=== PATIENT | female | born 1945 | race Caucasian/White ===

== ENCOUNTER → 2016-03-11 | Outpatient (CLI) | payer BC ==
[~2016-03-11] MED LIST: ASPI81TA28 PO; ATOR-26 PO; CALC600T9 PO; DEXL30CA5 PO; INSDGI SC; LEVO50TA6 PO; MEGE40TA13 PO; NVLGI SQ; TPRSR100 PO
[2016-03-11 10:04] LABS: ESTIMATED AVERAGE GLUCOSE 134 mg/dl; HA1C FLAG Normal (Normal)
== END | disposition home or self-care (01) ==
LOC: C.LAB1850 08:18
PROVIDERS: ATTEND Nurse Practitioner Family
DX: E10.29 Type 1 diabetes mellitus with other diabetic kidney complication (principal)

== ENCOUNTER → 2016-03-23 | Outpatient (CLI) | payer BC | END | disposition home or self-care (01) | LOC: C.PAPS 11:27 | PROVIDERS: ATTEND Obstetrics & Gynecology | DX: C54.1 Malignant neoplasm of endometrium (principal) ==

== ENCOUNTER → 2016-08-03 | Outpatient (CLI) | payer BC | END | disposition home or self-care (01) | LOC: C.MAMM 09:14 | PROVIDERS: ATTEND Family Medicine | DX: M85.851 Other specified disorders of bone density and structure, right thigh (principal); E10.9 Type 1 diabetes mellitus without complications; I10 Essential (primary) hypertension; E66.3 Overweight ==

== ENCOUNTER → 2016-09-08 | Outpatient (CLI) | payer BC ==
[2016-09-08 09:52] LABS: ESTIMATED AVERAGE GLUCOSE 137 mg/dl; HA1C FLAG Normal (Normal)
== END | disposition home or self-care (01) ==
LOC: C.LAB1850 08:39
PROVIDERS: ATTEND Nurse Practitioner Family
DX: E10.29 Type 1 diabetes mellitus with other diabetic kidney complication (principal)

== ENCOUNTER → 2016-09-22 | Outpatient (CLI) | payer BC | END | disposition home or self-care (01) | LOC: C.PAPS 11:53 | PROVIDERS: ATTEND Obstetrics & Gynecology | DX: C55 Malignant neoplasm of uterus, part unspecified (principal) ==

== ENCOUNTER → 2016-11-27 | Outpatient (CLI) | payer BC ==
[2016-11-27 10:01] LABS: BASO % 1.7 %; COMPLETE YES; EOS % 3.6 %; HEMATOCRIT 38.7 % (37-47); IG% 0.3 %; LYMPH % 25.4 %; MEAN CELL VOLUME 91.5 fL (80-100); MEAN CORPUSCULAR HEMOGLOBIN 30.7 pg (25-34); MEAN CORPUSCULAR HGB CONC 33.6 g/dl (32-36); MEAN PLATELET VOLUME 9.9 fL (7.4-10.4); MONO % 11.3 %; NEUT % 57.7 %; PLATELET COUNT 232 K/uL (130-400); RED BLOOD COUNT 4.23 M/uL (4.2-5.4); WHITE BLOOD COUNT 5.91 K/uL (4.8-10.8)
--- NOTE | 2016-11-27 10:15 | DIAGNOSTIC IMAGING REPORT ---
CHEST 2 VIEWS ROUTINE CLINICAL HISTORY: Endometrial carcinoma. History of lung metastases. COMPARISON STUDY: Chest CT March 03, 2013 and chest radiograph October 10, 2014. FINDINGS: A dual lead left subclavian pacemaker, median sternotomy wires and clips from bypass grafting are present. There is no pneumothorax. There is mild right pleural thickening versus a pleural effusion. This is similar to prior exam. A 5.4 x 2.3 cm elliptical pleural opacity within the posterior right midlung is similar to prior exams. This was shown to be partially calcified on prior CT. There is no consolidation to suggest pneumonia. The appearance of the chest is similar to prior exam. Cardiomediastinal silhouette is stable. IMPRESSION: 1. No acute cardiopulmonary findings. 2. No change in a 5.4 x 2.3 cm elliptical posterior right pleural opacity since prior exam which was shown to be partially calcified on prior CT. Unchanged appearance of the chest. Electronically signed by: Juan Hanson M.D. 11/27/2016 10:13 AM Dictated Date/Time: 11/27/2016 10:07 AM
[2016-11-27 10:32] LABS: ALT/SGPT 35 U/L (12-78); AST/SGOT 26 U/L (15-37); BLOOD UREA NITROGEN 23 mg/dl (7-18); BUN/CREATININE RATIO 24.1 (10-20); CARBON DIOXIDE 22 mmol/L (21-32); CHLORIDE 110 mmol/L (98-107); CREATININE 0.97 mg/dl (0.60-1.20); GLUCOSE 99 mg/dl (70-99); POTASSIUM 4.1 mmol/L (3.5-5.1); SODIUM 140 mmol/L (136-145)
[2016-11-27 10:34] LABS: ALKALINE PHOSPHATASE 79 U/L (45-117)
== END | disposition home or self-care (01) ==
LOC: C.RAD 08:58
PROVIDERS: ATTEND Nurse Practitioner Family
DX: C54.1 Malignant neoplasm of endometrium (principal)

== ENCOUNTER → 2017-01-04 | Outpatient (CLI) | payer BC ==
--- NOTE | 2017-01-05 14:32 | MAMMOGRAPHY REPORT ---
BILATERAL DIGITAL SCREENING MAMMOGRAM TOMOSYNTHESIS WITH CAD: 01/04/2017 CLINICAL HISTORY: Routine screening. Patient has no complaints. TECHNIQUE: Breast tomosynthesis in addition to standard 2D mammography was performed. Current study was also evaluated with a Computer Aided Detection (CAD) system. The bilateral MLO views are subopti mal and do not include visualization of the pectoralis muscles due to difficulties with patient posit ioning due to frozen shoulders and left pacemaker. COMPARISON: Comparison is made to exams dated: 01/02/2016 mammogram, 12/31/2014 mammogram, 4 mammogram, 12/27/2012 mammogram, 12/23/2011 mammogram, and 12/17/2010 mammogram - [facility]. BREAST COMPOSITION: The tissue of both breasts is heterogeneously dense, which may obscure small mas ses. FINDINGS: No suspicious masses, calcifications, or areas of architectural distortion are noted in ei ther breast. There has been no significant interval change compared to prior exams. Bilateral benign -appearing calcifications are not significantly changed. A biopsy marker clip is again noted within the left 3:00 breast. IMPRESSION: ACR BI-RADS CATEGORY 2: BENIGN There is no mammographic evidence of malignancy. A 1 year screening mammogram is recommended. The pa tient will receive written notification of the results. Approximately 10% of breast cancers are not detected with mammography. A negative mammographic report should not delay biopsy if a clinically suggestive mass is present. Gauri Carter M.D. 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
== END | disposition home or self-care (01) ==
LOC: C.MAMM 09:37
PROVIDERS: ATTEND Obstetrics & Gynecology
DX: Z12.31 Encounter for screening mammogram for malignant neoplasm of breast (principal)

== ENCOUNTER → 2017-01-15 | Outpatient (CLI) | payer BC ==
[2017-01-15 09:33] LABS: HEMATOCRIT 38.3 % (37-47); MEAN CELL VOLUME 93.2 fL (80-100); MEAN CORPUSCULAR HEMOGLOBIN 31.1 pg (25-34); MEAN CORPUSCULAR HGB CONC 33.4 g/dl (32-36); PLATELET COUNT 255 K/uL (130-400); RED BLOOD COUNT 4.11 M/uL (4.2-5.4); WHITE BLOOD COUNT 5.99 K/uL (4.8-10.8)
[2017-01-15 09:49] LABS: URINE APPEARANCE CLEAR (CLEAR); URINE BILIRUBIN NEG (NEG); URINE COLOR YELLOW; URINE EPITHELIAL CELL AUTO >30 /lpf (0-5); URINE NITRITE NEG (NEG); URINE SPECIFIC GRAVITY 1.018 (1.000-1.030); UROBILINOGEN NEG (NEG)
[2017-01-15 09:52] LABS: MANUAL MICROSCOPIC REQUIRED? NO; REVIEW REQ? NO
[2017-01-15 09:56] LABS: BLOOD UREA NITROGEN 27 mg/dl (7-18); BUN/CREATININE RATIO 25.2 (10-20); CARBON DIOXIDE 22 mmol/L (21-32); CHLORIDE 105 mmol/L (98-107); CREATININE 1.06 mg/dl (0.60-1.20); GLUCOSE 172 mg/dl (70-99); PHOSPHORUS 3.2 mg/dl (2.5-4.9); POTASSIUM 4.4 mmol/L (3.5-5.1); SODIUM 134 mmol/L (136-145)
[2017-01-15 09:58] LABS: URINE PROTIEN/CREAT RATIO 0.1 (0-0.2); URINE TOTAL PROTEIN 11.7 mg/dl (0-11.9)
== END | disposition home or self-care (01) ==
LOC: C.LAB1850 07:56
PROVIDERS: ATTEND Internal Medicine Nephrology
DX: I12.9 Hypertensive chronic kidney disease with stage 1 through stage 4 chronic kidney disease, or unspecified chronic kidney disease (principal); E55.9 Vitamin D deficiency, unspecified; N18.3 Chronic kidney disease, stage 3 (moderate); D64.9 Anemia, unspecified

== ENCOUNTER → 2017-02-16 | Outpatient (CLI) | payer BC ==
[2017-02-16 10:24] LABS: HEMOGLOBIN A1C 6.4 % (4.5-5.6)
== END | disposition home or self-care (01) ==
LOC: C.LAB1850 08:52
PROVIDERS: ATTEND Nurse Practitioner Family
DX: E10.29 Type 1 diabetes mellitus with other diabetic kidney complication (principal)

== ENCOUNTER → 2017-03-25 | Outpatient (CLI) | payer BC | END | disposition home or self-care (01) | LOC: C.PAPS 11:41 | PROVIDERS: ATTEND Obstetrics & Gynecology | DX: C54.1 Malignant neoplasm of endometrium (principal) ==

== ENCOUNTER → 2017-05-19 | Outpatient (CLI) | payer BC ==
[2017-05-19 09:57] LABS: HEMOGLOBIN A1C 6.5 % (4.5-5.6)
== END | disposition home or self-care (01) ==
LOC: C.LAB1850 08:26
PROVIDERS: ATTEND Nurse Practitioner Family
DX: E10.29 Type 1 diabetes mellitus with other diabetic kidney complication (principal)

== ENCOUNTER 2019-12-30 08:35 | Inpatient (IN) ==
--- NOTE | 2019-12-30 09:35 | XRay Report ---
XR chest 1V portable HISTORY: Dyspnea COMPARISON: Chest 08/24/2019. FINDINGS: The heart remains enlarged. There are poststernotomy changes and a left-sided dual-chamber pacemaker. Interstitial and vascular thickening consistent with pulmonary edema. Small bilateral pleu ral effusions have progressed. Right midlung zone lobular density remains unchanged. There are patchy bibasilar densities. Slight progression of a right upper lobe peripheral density. IMPRESSION: 1. Interval progression of the mild interstitial pulmonary edema and small bilateral pleural effusion s. 2. Right midlung zone lobular density persists consistent with calcification. 3. Progressive right upper lobe peripheral density which could represent additional areas of scarring or pneumonia. 4. Stable cardiomegaly. ACT 112: Negative or not required by law. Electronically signed by: Juan Luis Kilgore M.D. 12/30/2019 9:34 AM
[2019-12-30 10:06] LABS: Basophils # (auto) 0.04 K/uL (0-0.2); Basophils % (auto) 0.5 %; Eosinophils # (auto) 0.08 K/uL (0-0.5); Hematocrit (blood only) 39.5 % (37-47); Hemoglobin 12.6 g/dL (12.0-16.0); Immature Granulocytes # (auto) 0.02 K/uL (0.00-0.02); Immature Granulocytes % (auto) 0.3 %; Lymphocytes # (auto) 1.48 K/uL (1.2-3.4); Lymphocytes % (auto) 18.6 %; Mean Corpuscular Hemoglobin 29.9 pg (25-34); Mean Corpuscular Hgb Conc 31.9 g/dL (32-36); Mean Corpuscular Volume 93.8 fL (80-100); Mean Platelet Volume 9.6 fL (7.4-10.4); Monocytes # (auto) 0.57 K/uL (0.11-0.59); Monocytes % (auto) 7.2 %; Neutrophils # (auto) 5.75 K/uL (1.4-6.5); Neutrophils % (auto) 72.4 %; Platelet Count 216 K/uL (130-400); RDW Coefficient of Variation 15.7 % (11.5-14.5); RDW Standard Deviation 54.3 fL (36.4-46.3); Red Blood Count 4.21 M/uL (4.2-5.4); White Blood Count 7.94 K/uL (4.8-10.8)
[2019-12-30 10:24] LABS: Albumin Level 3.5 gm/dl (3.4-5.0); BUN Creatinine Ratio 22.5 (10-20); Calcium 8.7 mg/dl (8.5-10.1); Creatinine Clr Calc Pharmacy 38.5 ml/min; Est GFR (African American) 56.7; Est GFR (Non-African American) 48.9; Potassium 4.7 mmol/L (3.5-5.1)
[2019-12-30] MEDS ORDERED: FUROSEMIDE 40 MG/4 ML VIAL IV STA (10:27)
--- NOTE | 2019-12-30 10:27 | Emergency Department Note ---
History of Present Illness General Chief complaint: Shortness of Breath/Dyspnea Stated complaint: sob Time Seen by Provider: 12/30/19 08:43 Source: patient Mode of arrival: ambulatory Limitations: no limitations History of Present Illness Provider complaint: Shortness of breath Maximum Pain Intensity: 0 This is a 74-year-old female who presents to the ED with a chief complaint of shortness of breath. She states that she has had shortness of breath for about 2 weeks but it got worse the last couple of days. It is worse with exertion. The patient has a history of COPD, diabetes and hypertension. She does use a rescue inhaler. She states that she does not use Symbicort because it does not help. The patient denies any fevers or recent illness. Denies nausea vomiting. No chest pains. Home Medications Home Medications Medication Instructions Recorded Confirmed Type atorvastatin 80 mg tablet 80 mg PO HS tab 09/29/18 12/30/19 History cholecalciferol (vitamin D3) 50 2,000 units PO HS cap 11/28/18 12/30/19 History mcg (2,000 unit) capsule metoprolol succinate 100 mg 100 mg PO HS tab 11/28/18 12/30/19 History tablet,extended release 24 hr OneTouch Ultra Blue Test Strip #300 ea NS 02/07/19 10/17/19 Rx megestrol 40 mg tablet 40 mg PO QAM tab 02/19/19 12/30/19 History glucagon HCl 1 mg/mL solution for See Rx Instructions IM .COMPLEX #1 02/22/19 12/30/19 Rx injection ea lancets #50 ea 02/22/19 10/17/19 History blood-glucose sensor #3 ea 06/28/19 11/02/19 History Novolog Flexpen U-100 Insulin 100 See Rx Instructions .ROUTE 08/21/19 12/30/19 Rx unit/mL (3 mL) subcutaneous .COMPLEX #30 ml NS losartan 50 mg PO QAM 08/22/19 12/30/19 History budesonide-formoterol HFA 80 2 inh INH BID PRN #10.2 g 10/17/19 12/30/19 Rx mcg-4.5 mcg/actuation aerosol inhaler calcium 600 mg-D3 800 unit-mag11 1 tab PO DAILY 11/02/19 12/30/19 History 50 zn-pgzs-ebafvn-loyd-s.borat tablet insulin syringe-needle U-100 0.5 #10 ea 11/02/19 11/02/19 History mL 31 gauge x 5/16" pen needle, diabetic 30 gauge x #1 11/02/19 11/02/19 History 1/3" albuterol sulfate 2 inh INH QID 12/30/19 12/30/19 History aspirin [Aspir-Low] 81 mg PO HS 12/30/19 12/30/19 History ezetimibe 10 mg PO HS 12/30/19 12/30/19 History fluticasone propionate [Allergy 1 spray INTNAS QAM 12/30/19 12/30/19 History Relief (fluticasone)] insulin glargine [Lantus U-100 7 unit SQ BID 12/30/19 12/30/19 History Insulin] levothyroxine 100 mcg PO DAILY@0600 12/30/19 12/30/19 History Allergies Allergy/AdvReac Type Severity Reaction Status Date / Time Percocet Allergy Mild UPSET Uncoded 12/30/19 09:48 STOMACH/VOMITTING Past Med/Surg History Medical History (Updated 12/30/19 @ 11:47 by Colin Thompson DO) Arthritis Chronic kidney disease, stage III (moderate) Cough REASON FOR INHALER History of colon cancer History of hypertension History of rectal polyps Hx of cancer of endometrium Hyperlipidemia Hypothyroidism Lung tumor HX RT LOWER LUNG (SURGERY/CHEMO/RADIATION) Metastasis to lung Hematogenous Pacemaker [employer]. IMPLANTED 2013 FOR BIFASCICULAR BLOCK WITH TRANSIENT COMPLETE HEART BLOCK. LAST CHECKED 06/2019 [facility]. T1DM (type 1 diabetes mellitus) DX 1955 Vitamin D deficiency Surgical History Family history of reaction to anesthesia DAUGHTER-GETS SICK H/O aortic valve replacement 2013 AT [facility] History of appendectomy History of bilateral tubal ligation History of bronchoscopy 2006 History of cardiac cath History of cataract surgery RT/LEFT History of colon resection History of colonoscopy History of esophagogastroduodenoscopy (EGD) History of lung surgery RT LOWER LOBE REMOVAL History of open reduction and internal fixation (ORIF) procedure LEFT HIP History of placement of chest tube with chemical pleurodesis (non-chemotherapeutic) History of tooth extraction History of total hysterectomy S/P CABG (coronary artery bypass graft) 2013 AT [facility] Family History Mother Hypertension Brother Family history of diabetes mellitus Family history of esophageal cancer Other Asthma Cancer Diabetes Social History Smoking Status: Former smoker Age Started Using Tobacco: 16; Age Quit Using Tobacco: 56; Second Hand Exposure: No; Hx Alcohol Use: No Hx Substance Use: No Preferred Language: Guatemalan Environmental Compliance Manager Required: No Beliefs That Will Affect Care: None Current Living Situation: Spouse Feels Safe at Home: Yes Assistive Devices: Glasses Review of Systems A total of 10 systems reviewed and were otherwise negative Physical Exam Vital Signs Vital Signs - 24 hr 12/30/19 08:40 12/30/19 09:51 12/30/19 10:02 Temperature 36.8 C Temperature Source Oral Pulse Rate 107 H Pulse Rate [Apical] 97 H Pulse Rate from SpO2 Sensor Respiratory Rate 24 20 Respiratory Effort / Characteristics SOB on Exertion Blood Pressure 172/89 H Blood Pressure [Right Arm] 141/71 H Blood Pressure Mean 116 Blood Pressure Mean [Right Arm] 94 Blood Pressure Position Sitting Pulse Oximetry 96 95 96 Oxygen Delivery Method Room Air Room Air Room Air Sepsis Recent Fever Within 48 Hours No Sepsis New/Unexplained Change in Mental Status No Sepsis Action Taken by Nursing Physician Notified 12/30/19 10:30 12/30/19 11:00 12/30/19 11:35 Temperature Temperature Source Pulse Rate 93 H 97 H Pulse Rate [Apical] 91 H Pulse Rate from SpO2 Sensor 93 H Respiratory Rate 20 28 H 33 H Respiratory Effort / Characteristics Blood Pressure 132/67 163/76 H Blood Pressure [Right Arm] 138/63 Blood Pressure Mean 108 116 Blood Pressure Mean [Right Arm] 88 Blood Pressure Position Pulse Oximetry 95 95 Oxygen Delivery Method Room Air Sepsis Recent Fever Within 48 Hours Sepsis New/Unexplained Change in Mental Status Sepsis Action Taken by Nursing CONSTITUTIONAL/VITAL SIGNS: Reviewed / noted above. GENERAL: Non-toxic in appearance. INTEGUMENTARY: Warm, dry, and Dustin. HEAD: Normocephalic. EYES: without scleral icterus or trauma. ENT/OROPHARYNX: clear and moist. LYMPHADENOPATHY/NECK: Is supple without lymphadenopathy or meningismus. RESPIRATORY: Lungs reveal some basilar crackles bilaterally. She is not in any acute distress. CARDIOVASCULAR: Regular rate and rhythm. GI/ABDOMEN: Soft and nontender. No organomegaly or pulsatile mass. No rebound or guarding. Normal bowel sounds. EXTREMITIES: Warm and well perfused. BACK: No CVA tenderness. NEUROLOGICAL: Intact without focal deficits. PSYCHIATRIC: normal affect. MUSCULOSKELETAL: Normally developed with good muscle tone. TRIAGE NURSING DOCUMENTATION REVIEWED. Course Administered Medications Discontinued Medications Furosemide (Furosemide 40 Mg/4 Ml Vial) 40 mg IV NOW STA Stop: 12/30/19 10:28 Last Admin: 12/30/19 11:34 Dose: 40 mg Documented by: [id number] Ioversol (Optiray 320 125ml) 120 ml IV ONCE ONE Stop: 12/30/19 11:17 Last Admin: 12/30/19 11:16 Dose: 120 ml Documented by: [id number] Medical Decision Making Differential Diagnosis The differential was considered includes acute myocardial infarction, acute coronary syndrome, myocarditis, pericarditis, pericardial effusions /tamponad, esophageal perforation, pulmonary embolism, pneumonia, pneumothorax, cardiomyopathy, congestive heart, anemia , COPD/asthma exacerbation. Medical Records Attestation: I reviewed the patient's medical records. Home Medications Current Medication List: was personally reviewed by me Laboratory Data Attestation: I reviewed the patient's lab results. Result diagrams: 12/30/19 09:51 12/30/19 09:51 Lab Results 12/30/19 12/30/19 12/30/19 Range/Units 09:51 09:51 09:51 WBC 7.94 (4.8-10.8) K/uL RBC 4.21 (4.2-5.4) M/uL Hgb 12.6 (12.0-16.0) g/dL Hct 39.5 (37-47) % MCV 93.8 (80-100) fL MCH 29.9 (25-34) pg MCHC 31.9 L (32-36) g/dL RDW Std Deviation 54.3 H (36.4-46.3) fL RDW Coeff of Daniel 15.7 H (11.5-14.5) % Plt Count 216 (130-400) K/uL MPV 9.6 (7.4-10.4) fL Immature Gran % (Auto) 0.3 % Neut % (Auto) 72.4 % Lymph % (Auto) 18.6 % Brewster % (Auto) 7.2 % Eos % (Auto) 1.0 % Baso % (Auto) 0.5 % Neut # (Auto) 5.75 (1.4-6.5) K/uL Lymph # (Auto) 1.48 (1.2-3.4) K/uL Brewster # (Auto) 0.57 (0.11-0.59) K/uL Eos # (Auto) 0.08 (0-0.5) K/uL Baso # (Auto) 0.04 (0-0.2) K/uL Immature Gran # (Auto) 0.02 (0.00-0.02) K/uL PT 13.6 H (9.0-12.0) Seconds INR 1.3 H (0.9-1.1) APTT 30.2 (21.0-31.0) Seconds PTT Ratio 1.1 D-Dimer 950 H* (0-500) ug/L FEU Sodium 139 (136-145) mmol/L Potassium 4.7 (3.5-5.1) mmol/L Chloride 108 H (98-107) mmol/L Carbon Dioxide 28 (21-32) mmol/L Anion Gap 3.0 (3-11) BUN 25 H (7-18) mg/dl Creatinine 1.11 (0.6-1.2) mg/dl Est Cr Clr Drug Dosing 38.5 ml/min Est GFR ( Amer) 56.7 Est GFR (Non-Af Amer) 48.9 BUN/Creatinine Ratio 22.5 H (10-20) Glucose 166 H (70-99) mg/dl Calcium 8.7 (8.5-10.1) mg/dl Total Bilirubin 0.9 (0.2-1) mg/dl AST 49 H (15-37) U/L ALT 76 (12-78) U/L Alkaline Phosphatase 129 H (45-117) U/L Troponin I 0.050 H* (0-0.045) ng/ml NT-Pro-B Natriuret Pep 8760 H (0-900) pg/ml Total Protein 7.5 (6.4-8.2) gm/dl Albumin 3.5 (3.4-5.0) gm/dl Globulin 4.0 (2.5-4.0) gm/dl Albumin/Globulin Ratio 0.9 (0.9-2) Imaging Data Radiologist's Impression: XR chest 1V portable HISTORY: Dyspnea COMPARISON: Chest 08/24/2019. FINDINGS: The heart remains enlarged. There are poststernotomy changes and a left-sided dual-chamber pacemaker. Interstitial and vascular thickening consistent with pulmonary edema. Small bilateral pleural effusions have progressed. Right midlung zone lobular density remains unchanged. There are patchy bibasilar densities. Slight progression of a right upper lobe peripheral density. IMPRESSION: 1. Interval progression of the mild interstitial pulmonary edema and small bilateral pleural effusions. 2. Right midlung zone lobular density persists consistent with calcification. 3. Progressive right upper lobe peripheral density which could represent additional areas of scarring or pneumonia. 4. Stable cardiomegaly. ECG Data Attestation: I personally reviewed and interpreted this ECG as follows: Indication: + other (Paced ventricular rhythm ) Rate (beats per minute): [address] segments: no ST elevation ECG Findings: no PVCs MDM Narrative The patient presents with shortness of breath that is progressively worsened over the past couple of weeks and worse in the past couple of days. It is worse with exertion. Her vital signs reveal some hypertension as well as a pulse ox of 96% on room air. She is in no distress. Lung sounds reveal some crackles in the bases. Chest x-ray reveals some mild pulmonary edema. Twelve-lead EKG sh owed a paced ventricular rhythm at a rate of 104. The patient CBC was normal. D-dimer is elevated. Chemistry panel was unremarkable. D-dimer was elevated. Troponin is slightly elevated. CT scan of the chest reveals a right lower lobe pulmonary embolus as well as a soft tissue density near the bronchus that appears to be progressive. The patient was told the results of the test. She was started on IV heparin. She was given IV Lasix. She will be seen by the hospitalist for further evaluation and care. Impression & Plan CHF (congestive heart failure), Pulmonary emboli, Elevated troponin Discharge Plan Visit Data Chief Complaint: Shortness of Breath/Dyspnea Stated Complaint: sob ED Provider: Colin Thompson Discharge Problem: CHF (congestive heart failure), Pulmonary emboli, Elevated troponin Patient Disposition: Being Evaluated by Hospitalist Forms Stand Alone Forms: [employer] Prescriptions Prescriptions: No Action (DME) OneTouch Ultra Blue Test Strip strip See Dose Instructions .ROUTE .MEDSUPPLY Qty: 300 RF: 3 insulin aspart U-100 [Novolog Flexpen U-100 Insulin] 100 unit/mL (3 mL) insulin pen See Rx Instructions .ROUTE .COMPLEX Qty: 30 RF: 3 Caltrate 600-D Plus Minerals 600 mg calcium- 800 unit-50 mg tablet 1 tab PO DAILY RF: 0 budesonide-formoterol [Symbicort] 80-4.5 mcg/actuation HFA aerosol inhaler 2 inh INH BID PRN (Reason: Shortness Of Breath Or Wheezing) Qty: 10.2 RF: 3 (DME) [employer] G6 Sensor Device See Rx Instructions .ROUTE .MEDSUPPLY Qty: 3 RF: 0 metoprolol succinate 100 mg tablet extended release 24 hr 100 mg PO HS RF: 0 cholecalciferol (vitamin D3) 2,000 unit capsule 2,000 units PO HS RF: 0 atorvastatin 80 mg tablet 80 mg PO HS RF: 0 megestrol 40 mg tablet 40 mg PO QAM RF: 0 (DME) lancets [OneTouch UltraSoft Lancets] Misc See Dose Instructions .ROUTE .MEDSUPPLY Qty: 50 RF: 0 (DME) insulin syringe-needle U-100 [BD Insulin Syringe Ultra-Fine] 0.5 mL 31 gauge x 5/16" syringe See Rx Instructions .ROUTE .MEDSUPPLY Qty: 10 RF: 0 (DME) pen needle, diabetic 30 gauge x 1/3" needle See Rx Instructions .ROUTE .MEDSUPPLY Qty: 1 RF: 0 glucagon HCl 1 mg recon soln See Rx Instructions IM .COMPLEX Qty: 1 RF: 1 losartan 50 mg Tablet 50 mg PO QAM RF: 0 aspirin [Aspir-Low] 81 mg Tablet,Delayed Release (Dr/Ec) 81 mg PO HS RF: 0 Lantus U-100 Insulin 100 unit/mL solution 7 unit SQ BID RF: 0 albuterol sulfate 90 mcg/actuation HFA aerosol inhaler 2 inh INH QID RF: 0 fluticasone propionate [Allergy Relief (fluticasone)] 50 mcg/actuation spray,suspension 1 spray INTNAS QAM RF: 0 ezetimibe 10 mg tablet 10 mg PO HS RF: 0 levothyroxine 100 mcg capsule 100 mcg PO DAILY@0600 RF: 0 Referrals Referrals: Samuel Abreu [Primary Care Provider] - Discharge Problem: CHF (congestive heart failure) Qualifiers: Heart failure type: unspecified Heart failure chronicity: acute Qualified Code(s): I50.9 - Heart failure, unspecified Pulmonary emboli Qualifiers: Pulmonary embolism type: unspecified Chronicity: acute Acute cor pulmonale presence: without acute cor pulmonale Qualified Code(s): I26.99 - Other pulmonary embolism without acute cor pulmonale
[2019-12-30 10:29] LABS: INR 1.3 (0.9-1.1); Partial Thromboplastin Ratio 1.1; Partial Thromboplastin Time 30.2 Seconds (21.0-31.0); Prothrombin Time 13.6 Seconds (9.0-12.0)
[2019-12-30 10:30] LABS: D Dimer 950 ug/L FEU (0-500)
[2019-12-30 11:12] LABS: Albumin Globulin Ratio 0.9 (0.9-2); Bilirubin,Total 0.9 mg/dl (0.2-1); Total Protein 7.5 gm/dl (6.4-8.2)
[2019-12-30] MEDS ORDERED: OPTIRAY 320 125ml IV ONE (11:16)
--- NOTE | 2019-12-30 11:32 | CT Scan Report ---
CHEST CTA for PULMONARY ARTERIES CT DOSE: 614.85 mGy.cm HISTORY: Shortness of breath. TECHNIQUE: Multiaxial CT images of the chest were performed following the intravenous administration of contrast to evaluate the pulmonary arteries. Maximal intensity projection images were also obtaine d. A dose lowering technique was utilized adhering to the principles of ALARA. COMPARISON STUDY: Chest CT 10/16/2019. FINDINGS: The normal caliber thoracic aorta with no evidence for dissection. There are poststernotomy changes. Small bilateral pleural effusions have progressed in the interval. No pericardial effusion. The heart remains borderline enlarged. Retrograde opacification of contrast into the hepatic veins. A left-sided pacemaker and poststernotomy changes are again noted. There is a filling defect seen wit hin the right lower lobar pulmonary artery best seen on image 166 consistent with a pulmonary embolus . There is faint opacification of the distal right lower lobe bronchi. Multinodular thyroid gland is again noted. There is persistent abnormal soft tissue density surrounding the right bronchus intermed ius resulting in moderate to severe narrowing. This has slightly progressed in the interval. Small am ount of calcification at this location. Calcified lobular density within the right lower lobe posteri bridgette and along the right major fissure remains unchanged. This favors post therapeutic changes. Calci fied granuloma seen within the spleen. No pneumothorax. The lungs demonstrate mild interlobular septa l thickening and perihilar groundglass densities suggestive of pulmonary edema. Consolidation within the lung bases may represent atelectasis from the small bilateral pleural effusions. Mild esophageal wall thickening, unchanged. IMPRESSION: 1. A filling defect seen within the right lower lobar pulmonary artery consistent with a pulmonary em bolus. 2. Mild pulmonary edema and small bilateral pleural effusions. This has progressed. 3. Progressive soft tissue density surrounding the bronchus intermedius resulting in moderate to scott re narrowing. This is concerning for neoplasm. ACT 112: Negative or not required by law. Electronically signed by: Juan Luis Kilgore M.D. 12/30/2019 11:31 AM
[2019-12-30] MEDS ORDERED: HEPARIN SODIUM/DEXTROSE 25,000 UNITS/500 ML BAG IV SCH (11:45)
[2019-12-30] MEDS ORDERED: Heparin BOLUS **ED Use Only IV STA (12:10)
[2019-12-30 12:49] LABS: Appearance Urine Clear (Clear); Bacteria Urine Automated Negative (Negative); Bilirubin Urine Negative (Negative); Blood Urine Negative (Negative); Color Urine Yellow; Glucose Urine UA Negative (Negative); Ketones Urine Negative (Negative); Leukocyte Esterase Urine Negative (Negative); Nitrite Urine Negative (Negative); RBC Urine Automated 0-4 /hpf (0-4); Specific Gravity Urine 1.027 (1.000-1.030); Urobilinogen Urine Negative (Negative); pH Urine 7.5 (4.5-7.5)
--- NOTE | 2019-12-30 12:49 | History & Physical Report ---
Date of Service December 30, 2019 Assessment & Plan (1) Pulmonary emboli: IV heparin bolus and drip (2) Lung mass: Discussed with Dr Liu - no need to see this admission, patient will be discussed with her primary general cargo clerk Dr Stephens for possible outpatient PET/CT Patient under Dr Stephens with ongoing workup and prior biopsy showing benign chronic inflammatory tissue. (3) Elevated troponin: Suspect secondary to PE above but given CHF exacerbation in addition will trend and get TTE. (4) Acute on chronic congestive heart failure: 40mg IV lasix given in ER. Monitor BMP in AM for repeated doses. Prior echo in July LVEF 40-45% but given sudden worsening will repeat this. Low sodium, fluid restrict diet 1200ml I&Os, daily weights (5) CAD (coronary artery disease): Continue aspirin 81 mg p.o. at bedtime, metoprolol succinate 100 mg p.o. at bedtime, losartan 50 mg p.o. every morning, atorvastatin 80 mg p.o. at bedtime (6) Ischemic cardiomyopathy: Repeat TTE as above Metoprolol succinate and losartan as above (7) Asthma-COPD overlap syndrome: No acute exacerbation. Continue her routine maintenance inhalers. Albuterol PRN (8) T1DM (type 1 diabetes mellitus): HbA1C 6.1 in October. Will consult pharmacy for glycemic control with basal bolus insulin. (9) Hypothyroidism: TSH 1.78 in June Continue levothyroxine 100mcg PO daily Admission and Anticipated Discharge Date Admission Date: 12/30/2019 History of Present Illness Chief Complaint: Shortness of breath Primary Care Provider: Samuel Abreu Janine Graham is a 74-year-old female with asthma/COPD overlap and lung mass who presents to the ER with acute shortness of breath that sudden started this morning. She denies any acute chest pain, cough, fever chills. Yesterday she was at her baseline self. No wheezing or improvement with her inhalers therefore decided to come to the ER for further workup. No loss of taste, smell, abdominal pain, diarrhea or known COVID-19 exposure. She is under pulmonology for more chronic shortness of breath on exertion and chronic cough. She notes a history of histoplasmosis. Former smoker, with in 2005. Prior history of partial right lower lobe resection in 2005 for stage IV endometrial cancer s/p chemoradiation. She underwent EBUS recently in August for subcarinal mass (first seen on CT in Jun, 2019). Pathology for this showed chronic active inflammation and reactive epithelial changes but no malignant cells. Discussed at multi-disciplinary rounds. In the ER CT for PE was subsequently positive with a filling defect seen in the right lower lobe pulmonary artery. She also has mild pulmonary edema and small bilateral pleural effusions which is progressed from her prior CT in September. BNP elevated at 8760 PG/mL. She was treated with a heparin drip in the ER for her PE. Lasix 40 mg IV given in ER for pulmonary edema. She was referred to medicine for admission for pulmonary embolism and elevated troponin. Allergies Allergy/AdvReac Type Severity Reaction Status Date / Time acetaminophen [From Percocet] AdvReac Gastrointestinal Verified 12/30/19 14:40 Upset oxycodone [From Percocet] AdvReac Gastrointestinal Verified 12/30/19 14:40 Upset Home Medications Home Medications Medication Instructions Recorded Confirmed Type atorvastatin 80 mg tablet 80 mg PO HS tab 09/29/18 12/30/19 History cholecalciferol (vitamin D3) 50 2,000 units PO HS cap 11/28/18 12/30/19 History mcg (2,000 unit) capsule metoprolol succinate 100 mg 100 mg PO HS tab 11/28/18 12/30/19 History tablet,extended release 24 hr OneTouch Ultra Blue Test Strip #300 ea NS 02/07/19 10/17/19 Rx megestrol 40 mg tablet 40 mg PO QAM tab 02/19/19 12/30/19 History glucagon HCl 1 mg/mL solution for See Rx Instructions IM .COMPLEX #1 02/22/19 12/30/19 Rx injection ea lancets #50 ea 02/22/19 10/17/19 History blood-glucose sensor #3 ea 06/28/19 11/02/19 History Novolog Flexpen U-100 Insulin 100 See Rx Instructions .ROUTE 08/21/19 12/30/19 Rx unit/mL (3 mL) subcutaneous .COMPLEX #30 ml NS losartan 50 mg PO QAM 08/22/19 12/30/19 History budesonide-formoterol HFA 80 2 inh INH BID PRN #10.2 g 10/17/19 12/30/19 Rx mcg-4.5 mcg/actuation aerosol inhaler calcium 600 mg-D3 800 unit-mag11 1 tab PO DAILY 11/02/19 12/30/19 History 50 kl-bzhe-dvpktq-loyd-s.borat tablet insulin syringe-needle U-100 0.5 #10 ea 11/02/19 11/02/19 History mL 31 gauge x 5/16" pen needle, diabetic 30 gauge x #1 11/02/19 11/02/19 History 1/3" albuterol sulfate 2 inh INH QID 12/30/19 12/30/19 History aspirin [Aspir-Low] 81 mg PO HS 12/30/19 12/30/19 History ezetimibe 10 mg PO HS 12/30/19 12/30/19 History fluticasone propionate [Allergy 1 spray INTNAS QAM 12/30/19 12/30/19 History Relief (fluticasone)] insulin glargine [Lantus U-100 7 unit SQ BID 12/30/19 12/30/19 History Insulin] levothyroxine 100 mcg PO DAILY@0600 12/30/19 12/30/19 History Past Med/Surg History Medical History (Updated 12/31/19 @ 10:11 by Brady Morales MD) Arthritis Chronic kidney disease, stage III (moderate) Cough REASON FOR INHALER History of colon cancer History of hypertension History of rectal polyps Hx of cancer of endometrium Hyperlipidemia Hypothyroidism Lung tumor HX RT LOWER LUNG (SURGERY/CHEMO/RADIATION) Metastasis to lung Hematogenous Pacemaker [employer]. IMPLANTED 2013 FOR BIFASCICULAR BLOCK WITH TRANSIENT COMPLETE HEART BLOCK. LAST CHECKED 06/2019 [facility]. T1DM (type 1 diabetes mellitus) DX 195 Vitamin D deficiency Surgical History Family history of reaction to anesthesia DAUGHTER-GETS SICK H/O aortic valve replacement 2013 AT [facility] History of appendectomy History of bilateral tubal ligation History of bronchoscopy 2006 History of cardiac cath History of cataract surgery RT/LEFT History of colon resection History of colonoscopy History of esophagogastroduodenoscopy (EGD) History of lung surgery RT LOWER LOBE REMOVAL History of open reduction and internal fixation (ORIF) procedure LEFT HIP History of placement of chest tube with chemical pleurodesis (non-chemotherapeutic) History of tooth extraction History of total hysterectomy S/P CABG (coronary artery bypass graft) 2013 AT [facility] Family History Mother Hypertension Brother Family history of diabetes mellitus Family history of esophageal cancer Other Asthma Cancer Diabetes Social History Smoking Status: Former smoker Age Started Using Tobacco: 16; Age Quit Using Tobacco: 56; Smoking End Date: 18 years ago; Second Hand Exposure: No; Hx Alcohol Use: No Hx Substance Use: No Preferred Language: Korean Communication Ability: Effective 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 Required: No Beliefs That Will Affect Care: None Current Living Situation: Spouse Other Information That Helps Us Care for You: No Feels Safe at Home: Yes Safety Concerns: Feels Safe At This Time Assistive Devices: None Review of Systems Review of Systems: All systems reviewed & are unremarkable except as noted in HPI & below Physical Exam Constitutional: WD/WN, vitals as above Eyes: + anicteric sclerae; normal pupil size ENMT: external ear and nose normal, oropharynx normal Neck: trachea midline, no thyromegaly Respiratory: normal respiratory effort; no respiratory distress, no labored breathing, no retractions, does not use accessory muscles, no cough and + not able to speak in complete sentence Auscultation: + wheezes (inspiratory on right side); no diminished lung sounds, no crackles, no rales and no rhonchi Cardiovascular: Rate/Rhythm: regular rate and regular rhythm Heart Sounds: no murmur Extremities: normal capillary refill; no calf tenderness and no pedal edema Gastrointestinal (Abdomen): normal bowel sounds, soft, nontender, no hepatosplenomegaly Musculoskeletal: no cyanosis or clubbing, extremities motor strength 5/5 Skin: no rashes, warm and dry Neurologic: moves all extremities and awake; not confused Psychiatric: A+Ox3, euthymic affect Results & Data Results & Data ([facility]) Vital Signs (Past 12 Hours) Vital Signs Temp Pulse Pulse Resp BP BP Pulse Ox 12/30/19 12:21 101 H 30 H 167/84 H 96 12/30/19 12:11 36 H 90 12/30/19 12:04 113 H 35 H 90 12/30/19 11:35 97 H 33 H 163/76 H 12/30/19 11:00 93 H 28 H 132/67 95 12/30/19 10:30 91 H 20 138/63 95 12/30/19 10:02 97 H 20 141/71 H 96 12/30/19 09:51 95 12/30/19 08:40 36.8 C 107 H 24 172/89 H 96 Diagnostic Findings XR chest 1V portable IMPRESSION: 1. Interval progression of the mild interstitial pulmonary edema and small bilateral pleural effusions. 2. Right midlung zone lobular density persists consistent with calcification. 3. Progressive right upper lobe peripheral density which could represent additional areas of scarring or pneumonia. 4. Stable cardiomegaly. CHEST CTA for PULMONARY ARTERIES IMPRESSION: 1. A filling defect seen within the right lower lobar pulmonary artery consistent with a pulmonary embolus. 2. Mild pulmonary edema and small bilateral pleural effusions. This has progressed. 3. Progressive soft tissue density surrounding the bronchus intermedius resulting in moderate to severe narrowing. This is concerning for neoplasm. ECG Indication: SOB/dyspnea Rate (beats per minute): 104 Findings: + paced rhythm (atrial-sensed ventricular-paced) Comparison ECG Date: from (August 24, 2019) Change: no significant change Code Status & VTE Plan Code Status All treatment outside of a cardiac arrest VTE Prophylaxis Plan VTE Prophylaxis will be ordered: Yes PG Care Time/CCT Total # of Minutes Spent Total Time Spent with Patient: Total time spent is greater than 50% in coordination of care (as documented) at patient's floor/unit and/or counseling patient: Coding Level of Care Code 24125 Initial Inpt Care Lvl 3 Diagnoses Pulmonary emboli I26.99 Acute cor pulmonale presence: without acute cor pulmonale Chronicity: acute Pulmonary embolism type: unspecified Lung mass R91.8 Elevated troponin R77.8 Acute on chronic congestive heart failure I50.9 CAD (coronary artery disease) I25.10 Ischemic cardiomyopathy I25.5 Asthma-COPD overlap syndrome J44.9 T1DM (type 1 diabetes mellitus) E10.9 Hypothyroidism E03.9 (1) Pulmonary emboli Acute cor pulmonale presence: without acute cor pulmonale Chronicity: acute Pulmonary embolism type: unspecified Qualified Code(s): I26.99 - Other pulmonary embolism without acute cor pulmonale
[2019-12-30] MEDS ORDERED: INSULIN ASPART 100 UNITS/ML 3 ML PEN SC STA (12:55)
[2019-12-30 13:06] LABS: Protein Urine 1+ (Negative); Sulfosalicylic Acid Urine Positive (Negative)
[2019-12-30] MEDS ORDERED: ACETAMINOPHEN 325 MG TAB PO PRN (14:33)
[2019-12-30] MEDS ORDERED: ALBUTEROL HFA 8 GM INHALER INH PRN (14:33)
[2019-12-30] MEDS ORDERED: PHARMACY GLYCEMIC MGMT CONSULT PRN (14:54)
[2019-12-30] MEDS ORDERED: GLUCOSE 40% GEL 15 GM TUBE PO PRN (15:00)
[2019-12-30] MEDS ORDERED: GLUCOSE 10 TABS/TUBE PO PRN (15:00)
[2019-12-30] MEDS ORDERED: DEXTROSE 50% 50 ML SYRINGE IV PRN (15:00)
[2019-12-30] MEDS ORDERED: CARBOHYDRATES FOR HYPOGLYCEMIA PO PRN (15:00)
[2019-12-30] MEDS ORDERED: GLUCAGON FOR INJ 1 MG VIAL SQ PRN (15:00)
[2019-12-30] MEDS: INSULIN ASPART 100 UNITS/ML 3 ML PEN SC SCH ×2 (17:02→20:50)
[2019-12-30 20:31] LABS: Partial Thromboplastin Ratio > 5.0
[2019-12-30] MEDS: ATORVASTATIN 40 MG TAB PO SCH (20:36)
[2019-12-30] MEDS: ASPIRIN 81 MG ECTAB PO SCH (20:36)
[2019-12-30] MEDS: METOPROLOL SUCC 50MG EXT REL TAB PO SCH (20:37)
[2019-12-30 20:38] LABS: Partial Thromboplastin Time > 139.0 Seconds (21.0-31.0)
[2019-12-30] MEDS: EZETIMIBE 10 MG TABLET PO SCH (20:42)
[2019-12-30] MEDS: CHOLECALCIFEROL 1,000 UNITS 25 MCG TAB PO SCH (20:43)
[2019-12-30] MEDS: INSULIN GLARGINE SOLOSTAR 100 UNITS/ML 3 ML PEN SC SCH (20:48)
[2019-12-30] MEDS ORDERED: FAMOTIDINE 20MG IV PUSH 20 MG/5 ML SYR IV STA (21:24)
[2019-12-30] MEDS ORDERED: ALUMINUM/MAGNESIUM SUSP 30 ML UDC PO PRN (21:25)
[2019-12-30 23:04] LABS: Partial Thromboplastin Ratio 1.5; Partial Thromboplastin Time 40.9 Seconds (21.0-31.0)
[2019-12-31 05:39] LABS: Basophils # (auto) 0.04 K/uL (0-0.2); Basophils % (auto) 0.7 %; Eosinophils # (auto) 0.11 K/uL (0-0.5); Hematocrit (blood only) 34.2 % (37-47); Hemoglobin 11.1 g/dL (12.0-16.0); Immature Granulocytes # (auto) 0.02 K/uL (0.00-0.02); Immature Granulocytes % (auto) 0.4 %; Lymphocytes # (auto) 1.55 K/uL (1.2-3.4); Lymphocytes % (auto) 27.9 %; Mean Corpuscular Hemoglobin 29.9 pg (25-34); Mean Corpuscular Hgb Conc 32.5 g/dL (32-36); Mean Corpuscular Volume 92.2 fL (80-100); Mean Platelet Volume 9.1 fL (7.4-10.4); Monocytes # (auto) 0.66 K/uL (0.11-0.59); Monocytes % (auto) 11.9 %; Neutrophils # (auto) 3.18 K/uL (1.4-6.5); Neutrophils % (auto) 57.1 %; Platelet Count 211 K/uL (130-400); RDW Coefficient of Variation 15.8 % (11.5-14.5); RDW Standard Deviation 53.4 fL (36.4-46.3); Red Blood Count 3.71 M/uL (4.2-5.4); White Blood Count 5.56 K/uL (4.8-10.8)
[2019-12-31 05:51] LABS: Partial Thromboplastin Ratio 2.4
[2019-12-31 05:57] LABS: BUN Creatinine Ratio 26.2 (10-20); Calcium 8.5 mg/dl (8.5-10.1); Creatinine Clr Calc Pharmacy 37.2 ml/min; Est GFR (African American) 54.3; Est GFR (Non-African American) 46.8
[2019-12-31 05:58] LABS: Partial Thromboplastin Time 66.1 Seconds (21.0-31.0)
[2019-12-31 06:02] LABS: Troponin I 0.056 ng/ml (0-0.045)
[2019-12-31] MEDS: LEVOTHYROXINE SODIUM 100 MCG TABLET PO SCH (06:05)
--- NOTE | 2019-12-31 06:44 | Electrocardiogram Report ---
Test Reason : Blood Pressure : / mmHG Vent. Rate : 104 BPM Atrial Rate : 104 BPM P-R Int : 182 ms QRS Dur : 174 ms QT Int : 410 ms P-R-T Axes : 039 -69 098 degrees QTc Int : 539 ms Atrial-sensed ventricular-paced rhythm Abnormal ECG When compared with ECG of 24-AUG-2019 06:46, Vent. rate has increased BY 12 BPM Confirmed by Michel Barnes ([id number]) on 12/31/2019 6:44:29 AM Referred By: REFERRED SELF Confirmed By:Michel Barnes
[2019-12-31] MEDS: INSULIN ASPART 100 UNITS/ML 3 ML PEN SC SCH ×4 (09:03→21:13)
[2019-12-31] MEDS: INSULIN GLARGINE SOLOSTAR 100 UNITS/ML 3 ML PEN SC SCH ×2 (09:05→21:12)
--- NOTE | 2019-12-31 09:48 | Hospitalist Progress Note ---
Date of Service December 31, 2019 Assessment & Plan (1) Pulmonary emboli: Janine Graham is a 74 yo male with h/o metastatic lung cancer (s/p resection, chemo, XRT in 2006), T2DM, h/o complete heart block (PPM in 2013) who was admitted on 12/30/2019 for a RLL PE and acute CHF. - Acute worsening of ARREDONDO, elevated d-dimer 950, RLL PE on CTA Chest 12/29 - started on Heparin IV bolus plus gtt on 12/29 - feels improved as of 12/30, no SOB - TTE 12/30 pending - transition to Eliqius 10 mg PO BID x7 days today, followed by 5mg PO BID for thereafter - likely will need indefinite length of therapy given persistent risk factor (malignancy) - f/u with Dr. Stephens (customer pricing manager) as outpatient for possible serial TTE and further eval/management (2) Acute on chronic congestive heart failure: - BNP 8760, interval progression of chronic interstitial pulmonary edema and small bilateral pulmonary effusions per CXR/CTA-Chest on 12/29 - s/p Lasix 40mg IV x1 in ED. - improved SOB this AM and no crackles on exam, net -1.3 L this admission - Cr stable/WNL at 1.15 - TTE pending - gave Lasix 40mg PO x1 today, will re-evaluate volume status tomorrow for further diuresis - continue home Toprol XL 100mg PO QHS and Losartan 50mg PO QAM - Low-sodium/fluid-restricted diet - strict I&Os, daily weights (3) Lung mass: - per Pulm, no need to see this admission; patient will be discussed with her primary customer pricing manager Dr. Stephens for possible outpatient PET/CT - Note: Patient under Dr Stephens with ongoing workup and prior biopsy in 08/2019 showing benign chronic inflammatory tissue. (4) Elevated troponin: - No chest pain, EKG w/o ST/T-wave changes, Troponin .062 --> .056 - Suspect demand ischemia 2/2 to PE and CHF exacerbation (5) Asthma-COPD overlap syndrome: - no acute exacerbation, no recent increased use of home inhalers or increased cough/wheezing - Albuterol PRN (6) T1DM (type 1 diabetes mellitus): - HbA1C 6.1 in 10/2019 - continue SSI/basal dosing per Pharmacy (7) HTN (hypertension): - continue home Toprol and Lisinopril as mentioned above (8) Hypothyroidism: - TSH 1.78 in 06/2019 - Continue home levothyroxine 100mcg PO daily FEN/GI: DM1, Heart Healthy DVT Prophylaxis: Eliquis 10mg PO BID Code Status: Conditional (all treatments outside of cardiac arrest) Disposition: med/surg with tele, tentative discharge tomorrow if medically stable Admission and Anticipated Discharge Date Admission Date: December 30, 2019 Supervising Physician Co-Signing Physician Notes I personally examined the patient and verified all joel points of history and exam, discussed case, and agree with decision making with Dr Carter. feeling better breathing better extensive discussion on PE and CHF. echo pending at the time we have discussions vitals noted nad heent nc at mmm breathing unlabored no accessory muscles good effort skin no rashes no pallor or icterus neuro no focal deficits PE - eliquis. stable. acute on chronic systolic chf - educated on Na. she was not aware and will start to watch - goal <2g. improved clinically - ok to hold diuretic for now. late finding on echo showing newly reduced EF - will ask cardiology for input otherwise as above Subjective NAEO. Patient confirmed some of previous history per H&P/ED notes, reporting chronic ARREDONDO but mildly worsened over last 2 weeks, and acutely exacerbated on DOA. Denies orthopnea or LE edema over the last several weeks or currently. Denies recent wheezing/cough/mucus production or increased use of home inhalers; in fact she reports decreased use of rescue Albuterol and has not been using daily Symbicort. Confirms recent biopsy via EBUS in 08/2019 that was negative for malignancy. Reports feeling improved overall with markedly improved breathing this AM - standing up and walking to the bathroom without issues. Denies fever/chills, chest pain/palpitations, N/V, abdominal pain. Review of Systems Review of Systems: Pertinent positives and negatives mentioned in HPI Physical Exam Constitutional: WD/WN, vitals as above Respiratory: normal respiratory effort; no labored breathing and no cough Auscultation: + diminished lung sounds (on the left side); no crackles and no wheezes Cardiovascular: RRR, no murmur, no edema Extremities: no edema Gastrointestinal (Abdomen): normal bowel sounds, soft, nontender, no hepatosplenomegaly Skin: no rashes, warm and dry Psychiatric: A+Ox3, euthymic affect Results & Data Results & Data ([facility]) Vital Signs (Past 12 Hours) Vital Signs Temp Pulse Pulse Resp BP Pulse Ox 12/31/19 07:05 37.1 C 91 H 18 150/76 H 94 12/31/19 04:00 36.9 C 85 16 134/71 93 12/31/19 01:13 90 12/30/19 23:42 36.8 C 88 16 135/70 95 Resident Activity Tracking Resident Involvement: Resident Care Provided Care Provided: Adult Hospital Medicine (1) Pulmonary emboli Acute cor pulmonale presence: without acute cor pulmonale Chronicity: acute Pulmonary embolism type: unspecified Qualified Code(s): I26.99 - Other pulmonary embolism without acute cor pulmonale
--- NOTE | 2019-12-31 09:59 | Pharmacy Report ---
Pharmacy Glycemic Short Note 2 - Date of Service December 31, 2019 - Glycemic Short BSG Results (Last 24 hours): 12/30/19 12/30/19 12/30/19 09:51 12:27 16:36 Glucose 166 H POC Glucose 181 H 170 H 12/30/19 12/31/19 12/31/19 20:46 05:17 08:55 Glucose 133 H POC Glucose 220 H 354 H* 12/31/19 08:57 Glucose POC Glucose 380 H* OUTPATIENT ANTIDIABETIC REGIMEN: * Lantus 7 units SQ BID * Aspart SS (up to 30 units per day) * Breakfast carb ratio- 1:8 * Lunch carb ratio- 1:10 * Dinner carb ratio- 1:15 * A1c = 6.1% (10/31/19) ASSESSMENT: * 74 you type 1 DM female admitted with shortness of breath due to PE. Patient is maintained on IV heparin infusion. * Fasting BSG of 133 mg/dL is at goal. Home dose of Lantus 7 units BID was continued on admission (with order to give less for BSG < 120 mg/dL). * Post prandial BSGs were elevated yesterday. Will change novolog carb ratio to be similar to home regimen. * Of note, POC at breakfast resulted at 354 mg/dL. Per RN, this BSG was taken after patient ate bowl of cereal with milk. I instructed RN to cover carbohydrates from breakfast but NOT to give correctional insulin based on this value. PLAN FOR INPATIENT GLYCEMIC CONTROL: * Basal insulin * Lantus 6-7 units SQ BID: * 6 units for BSG < 120 mg/dL * 7 units for BSG 120 mg/dL or more * Bolus insulin - tighten * NovoLog per scale ACHS or Q6hrs while NPO * Goal Range: Low 110 mg/dL - High 140 mg/dL Breakfast: * Correction Factor: 30 mg/dL/unit * Nutritional / Prandial insulin per carb ratio of 1 unit per 8 grams CHO consumed Lunch/dinner/HS: * Correction Factor: 30 mg/dL/unit * Nutritional / Prandial insulin per carb ratio of 1 unit per 8 grams CHO consumed PLAN FOR DISCHARGE: * A1c of 6.1% is at goal. It is reasonable to continue home regimen on discharge as long as patient denies frequent hypoglycemia. * Continue to follow with outpatient endocrinology group for dose adjustment
[2019-12-31] MEDS: CALCIUM 600MG + VIT D 400 IU TAB PO SCH (10:11)
[2019-12-31] MEDS: LOSARTAN POTASSIUM 50 MG TAB PO SCH (10:11)
[2019-12-31] MEDS: FLUTICASONE PROPIONATE NA SPR 16 GM BTL NAE SCH (10:11)
[2019-12-31] MEDS: MEGESTROL ACETATE 40 MG TAB PO SCH (10:11)
[2019-12-31] MEDS ORDERED: FUROSEMIDE 40 MG TAB PO ONE (10:40)
[2019-12-31 11:03] LABS: Troponin I 0.05 ng/ml (0-0.045)
[2019-12-31] MEDS: APIXABAN 2.5 MG TAB PO SCH ×2 (11:18→21:11)
[2019-12-31] MEDS ORDERED: MELATONIN 3 MG TAB PO PRN (13:42)
--- NOTE | 2019-12-31 14:44 | XCELERA ---
[id number]
--- NOTE | 2019-12-31 18:33 | Billing Data ---
Date of Service December 31, 2019 Coding Level of Care Code 93550 Subseq Hosp Care Lvl 3
[2019-12-31] MEDS: ASPIRIN 81 MG ECTAB PO SCH (21:11)
[2019-12-31] MEDS: ATORVASTATIN 40 MG TAB PO SCH (21:12)
[2019-12-31] MEDS: METOPROLOL SUCC 50MG EXT REL TAB PO SCH (21:14)
[2019-12-31] MEDS: EZETIMIBE 10 MG TABLET PO SCH (21:16)
[2019-12-31] MEDS: CHOLECALCIFEROL 1,000 UNITS 25 MCG TAB PO SCH (21:16)
[2020-01-01] MEDS: LEVOTHYROXINE SODIUM 100 MCG TABLET PO SCH (06:03)
[2020-01-01 07:15] LABS: Basophils # (auto) 0.06 K/uL (0-0.2); Basophils % (auto) 0.9 %; Eosinophils # (auto) 0.23 K/uL (0-0.5); Eosinophils % (auto) 3.5 %; Hematocrit (blood only) 37.5 % (37-47); Hemoglobin 12.1 g/dL (12.0-16.0); Immature Granulocytes # (auto) 0.02 K/uL (0.00-0.02); Immature Granulocytes % (auto) 0.3 %; Lymphocytes # (auto) 1.73 K/uL (1.2-3.4); Lymphocytes % (auto) 26.3 %; Mean Corpuscular Hemoglobin 29.7 pg (25-34); Mean Corpuscular Hgb Conc 32.3 g/dL (32-36); Mean Corpuscular Volume 92.1 fL (80-100); Mean Platelet Volume 9.7 fL (7.4-10.4); Monocytes # (auto) 0.75 K/uL (0.11-0.59); Monocytes % (auto) 11.4 %; Neutrophils # (auto) 3.79 K/uL (1.4-6.5); Neutrophils % (auto) 57.6 %; Platelet Count 226 K/uL (130-400); RDW Coefficient of Variation 15.9 % (11.5-14.5); RDW Standard Deviation 53.2 fL (36.4-46.3); Red Blood Count 4.07 M/uL (4.2-5.4); White Blood Count 6.58 K/uL (4.8-10.8)
[2020-01-01 07:29] LABS: INR 1.6 (0.9-1.1); Partial Thromboplastin Ratio 1.4; Partial Thromboplastin Time 40.2 Seconds (21.0-31.0); Prothrombin Time 16.5 Seconds (9.0-12.0)
[2020-01-01 07:37] LABS: BUN Creatinine Ratio 21.9 (10-20); Calcium 9.5 mg/dl (8.5-10.1); Creatinine Clr Calc Pharmacy 35.7 ml/min; Est GFR (African American) 53.2; Est GFR (Non-African American) 45.9; Potassium 4.2 mmol/L (3.5-5.1)
[2020-01-01] MEDS: CALCIUM 600MG + VIT D 400 IU TAB PO SCH (07:49)
[2020-01-01] MEDS: FLUTICASONE PROPIONATE NA SPR 16 GM BTL NAE SCH (07:50)
[2020-01-01] MEDS: APIXABAN 2.5 MG TAB PO SCH (07:50)
[2020-01-01] MEDS: MEGESTROL ACETATE 40 MG TAB PO SCH (07:50)
[2020-01-01] MEDS: LOSARTAN POTASSIUM 50 MG TAB PO SCH (07:50)
[2020-01-01] MEDS: INSULIN GLARGINE SOLOSTAR 100 UNITS/ML 3 ML PEN SC SCH ×2 (08:10→20:17)
[2020-01-01] MEDS: INSULIN ASPART 100 UNITS/ML 3 ML PEN SC SCH ×4 (08:13→20:18)
--- NOTE | 2020-01-01 09:35 | Cardiology Consultation ---
Date of Consultation January 01, 2020 Assessment & Plan (1) CHF (congestive heart failure): She presented with congestive heart failure (shortness of breath do probably a combination of that and pulmonary embolism), she feels better now. The cause of her congestive heart failure is most likely her reduced left ventricular function. (2) Ischemic cardiomyopathy: She has had a mild cardiomyopathy in the past, her ejection fraction in July 2018 was about 45% which may have been in part due to ventricular pacing. Ejection fraction is now much worse. This could be due to progression of coronary disease however she has not had symptoms to suggest that. We should look for ischemia, we could do a catheterization but my inclination would be to do a stress test to see if she has significant ischemia. If she does then we should evaluate that with a catheterization, if not there are other likely causes of her reduced ejection fraction. We need to alter her medical regimen to optimize medical therapy for her cardiomyopathy. I would switch metoprolol succinate to carvedilol 12.5 mg twice a day to start and we should titrate to 25 mg twice a day if possible. I would also recommend switching from losartan to Entresto, starting at the lowest dose (50 mg combined dose). This could be accomplished here or as an outpatient. We should arrange for her to be seen in our heart failure clinic to help titrate medications. I will also follow-up with her, either here or as an outpatient, to monitor her progress. (3) Cardiac pacemaker: She has a dual-chamber pacemaker and is now pacing all of the time in the ventricle. The device appears to be working well on the monitor although I do not think it was evaluated in house. (4) Atrioventricular block, complete: She had intermittent complete heart block initially, however more recently she has been pacing all of the time and this may be a cause of her cardiomyopathy. If it is a pacer induced cardiomyopathy then I think we should upgrade to a biventricular device, possibly an ICD if her left ventricular function does not improve with medical therapy. I do not think we should do that immediately I think we should alter her medical regimen as outlined above. (5) Aortic valve disorder: Aortic valve appears to be functioning well both by exam and echoca rdiography and does not explain her cardiomyopathy. History of Present Illness Reason for Consultation: CHF, left ventricular dysfunction, pacemaker Attending Physician: Petty Ceballos MD History of Present Illness This is a 74-year-old woman who has a history of coronary artery disease, aortic stenosis who had bypass surgery with aortic valve replacement (with a bioprosthetic valve) in 2013. She presented to the emergency room on 01/26/2014 after having a syncopal episode and falling, she did fracture her left femur. She also had a prior syncopal event in May 2013 and has a long history of bifascicular block which occurred somewhere between 2008 and January 2013 on electrocardiography. On 01/27/2014 she had an episode of complete heart block identified on telemetry monitoring, although this occurred during an episode of vomiting, but with her prior history it was not clear that this was a vagal event. With her evidence of significant AV conduction disease and prior syncope we did implant a dual-chamber pacemaker on 02/01/2014. An echocardiogram at that time and subsequently has shown normal valve function, last evaluated July 19, 2018 her valve was working well and her left ventricular size was normal but she had mild left ventricular dysfunction with an ejection fraction of 45%. She presents now with shortness of breath which has been progressive for about 2 weeks but was especially bad several days prior to admission. She does have a history of COPD however chest x-ray suggested pulmonary edema, CT of the chest suggested a right lower lobe pulmonary embolism for which she was started on anticoagulation. She was admitted for this and diuresis. Subsequent evaluation included an echocardiogram done December 31, 2019, this showed severe left ventricular dysfunction with an ejection fraction of 25 to 30% and normal gradients through her prosthetic aortic valve. She also had moderate mitral regurgitation. Her left ventricular function is markedly reduced compared to July 2018. Here she has been hypertensive, although her blood pressure varies a lot and she has had an overall high heart rate. Her troponin was elevated but minimally so (about 0.06) with no particular trend over 3 measurements. At home she was taking taking metoprolol succinate 100 mg daily and losartan 50 mg daily. At the time of my evaluation she was feeling well, she is sitting at her bedside in her chair. She thought she was going home today. She is not short of breath. She denies any type of exertional chest discomfort prior to this, shortness of breath has improved with treatment of her heart failure. She is currently taking Apixaban 10 mg twice a day for her pulmonary embolism, and she is on the same doses of metoprolol succinate and losartan. Allergies Allergy/AdvReac Type Severity Reaction Status Date / Time acetaminophen [From Percocet] AdvReac Gastrointestinal Verified 12/30/19 14:40 Upset oxycodone [From Percocet] AdvReac Gastrointestinal Verified 12/30/19 14:40 Upset Home Medications Home Medications Medication Instructions Recorded Confirmed Type atorvastatin 80 mg tablet 80 mg PO HS tab 09/29/18 12/30/19 History cholecalciferol (vitamin D3) 50 2,000 units PO HS cap 11/28/18 12/30/19 History mcg (2,000 unit) capsule metoprolol succinate 100 mg 100 mg PO HS tab 11/28/18 12/30/19 History tablet,extended release 24 hr FotoIN MobileTouch Ultra Blue Test Strip #300 ea NS 02/07/19 10/17/19 Rx megestrol 40 mg tablet 40 mg PO QAM tab 02/19/19 12/30/19 History glucagon HCl 1 mg/mL solution for See Rx Instructions IM .COMPLEX #1 02/22/19 12/30/19 Rx injection ea lancets #50 ea 02/22/19 10/17/19 History blood-glucose sensor #3 ea 06/28/19 11/02/19 History Novolog Flexpen U-100 Insulin 100 See Rx Instructions .ROUTE 08/21/19 12/30/19 Rx unit/mL (3 mL) subcutaneous .COMPLEX #30 ml NS losartan 50 mg PO QAM 08/22/19 12/30/19 History budesonide-formoterol HFA 80 2 inh INH BID PRN #10.2 g 10/17/19 12/30/19 Rx mcg-4.5 mcg/actuation aerosol inhaler calcium 600 mg-D3 800 unit-mag11 1 tab PO DAILY 11/02/19 12/30/19 History 50 dt-vjfy-ayjvdb-loyd-s.borat tablet insulin syringe-needle U-100 0.5 #10 ea 11/02/19 11/02/19 History mL 31 gauge x /" pen needle, diabetic 30 gauge x #1 11/02/19 11/02/19 History 1/3" albuterol sulfate 2 inh INH QID 12/30/19 12/30/19 History aspirin [Aspir-Low] 81 mg PO HS 12/30/19 12/30/19 History ezetimibe 10 mg PO HS 12/30/19 12/30/19 History fluticasone propionate [Allergy 1 spray INTNAS QAM 12/30/19 12/30/19 History Relief (fluticasone)] insulin glargine [Lantus U-100 7 unit SQ BID 12/30/19 12/30/19 History Insulin] levothyroxine 100 mcg PO DAILY@0600 12/30/19 12/30/19 History Patient History Medical History Arthritis Chronic kidney disease, stage III (moderate) Cough REASON FOR INHALER History of colon cancer History of hypertension History of rectal polyps Hx of cancer of endometrium Hyperlipidemia Hypothyroidism Lung tumor HX RT LOWER LUNG (SURGERY/CHEMO/RADIATION) Metastasis to lung Hematogenous Pacemaker [employer]. IMPLANTED 2013 FOR BIFASCICULAR BLOCK WITH TRANSIENT COMPLETE HEART BLOCK. LAST CHECKED 06/2019 [facility]. T1DM (type 1 diabetes mellitus) DX 1954 Vitamin D deficiency Surgical History Family history of reaction to anesthesia DAUGHTER-GETS SICK H/O aortic valve replacement 2013 AT [facility] History of appendectomy History of bilateral tubal ligation History of bronchoscopy 2006 History of cardiac cath History of cataract surgery RT/LEFT History of colon resection History of colonoscopy History of esophagogastroduodenoscopy (EGD) History of lung surgery RT LOWER LOBE REMOVAL History of open reduction and internal fixation (ORIF) procedure LEFT HIP History of placement of chest tube with chemical pleurodesis (non-chemotherapeutic) History of tooth extraction History of total hysterectomy S/P CABG (coronary artery bypass graft) 2013 AT [facility] Family History Mother Hypertension Brother Family history of diabetes mellitus Family history of esophageal cancer Other Asthma Cancer Diabetes Social History Smoking Status: Former smoker Age Started Using Tobacco: 16; Age Quit Using Tobacco: 56; Smoking End Date: 18 years ago; Second Hand Exposure: No; Hx Alcohol Use: No Hx Substance Use: No Preferred Language: French Communication Ability: Effective 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 HEENT: Unremarkable Neck: No jugular venous distention, carotid pulses are normal and equal bilaterally without bruits. Pulmonary: Slight crackles at the right base, left lung is clear. Cardiac: Regular rhythm with a very soft crescendo decrescendo murmur at the base, no gallop or rub. Abdomen: Soft, nontender with normal bowel sounds. Extremities: No edema. Distal pulses intact. Neurologic: No focal findings. Gait is steady. Skin: The device site is well-healed without erythema, swelling or tenderness. No rash, ecchymoses or petechiae. Results & Data ([facility]) Vital Signs (Past 12 Hours) Vital Signs Temp Pulse Pulse Resp BP Pulse Ox 01/01/20 07:15 36.7 C 90 18 164/75 H 94 01/01/20 03:05 36.7 C 84 18 136/69 94 12/31/19 23:22 36.7 C 85 18 127/61 97 12/31/19 23:18 89 Laboratory Results Cardiac Enzymes 12/30/19 Range/Units 09:51 Troponin I 0.050 H* (0-0.045) ng/ml Coagulation 01/01/20 Range/Units 06:43 PT 16.5 H (9.0-12.0) Seconds APTT 40.2 H (21.0-31.0) Seconds CBC 01/01/20 Range/Units 06:43 WBC 6.58 (4.8-10.8) K/uL RBC 4.07 L (4.2-5.4) M/uL Hgb 12.1 (12.0-16.0) g/dL Hct 37.5 (37-47) % Plt Count 226 (130-400) K/uL Neut # (Auto) 3.79 (1.4-6.5) K/uL Lymph # (Auto) 1.73 (1.2-3.4) K/uL Bucks # (Auto) 0.75 H (0.11-0.59) K/uL Eos # (Auto) 0.23 (0-0.5) K/uL Baso # (Auto) 0.06 (0-0.2) K/uL Comprehensive Metabolic Panel 01/01/20 Range/Units 06:43 Sodium 137 (136-145) mmol/L Potassium 4.2 (3.5-5.1) mmol/L Chloride 106 (98-107) mmol/L Carbon Dioxide 24 (21-32) mmol/L BUN 26 H (7-18) mg/dl Creatinine 1.17 (0.6-1.2) mg/dl Glucose 182 H (70-99) mg/dl Calcium 9.5 (8.5-10.1) mg/dl Intake and Output 12/31/19 01/01/20 01/01/20 22:59 06:59 14:59 Intake Total 220 / 896 100 / 896 Output Total 1977 Balance -755 / -1082 -452 / -1082 Intake: Oral 220 / 715 100 / 715 Output: Urine 1974 # Bowel Movements 2 / 3 Other: Weight 65.6 kg Weight Measurement Method Standing Scale Diagnostic Findings Electrocardiogram: This shows atrial sensing and ventricular pacing, she is a wide paced ventricular complex and therefore changes due to coronary disease cannot be seen. Telemetry: Sinus rhythm with ventricular pacing throughout, heart rate generally reasonably well controlled. PG Care Time/CCT Total # of Minutes Spent Total Time Spent with Patient: Total time spent is greater than 50% in coordination of care (as documented) at patient's floor/unit and/or counseling patient: Coding Level of Care Code 34386 Initial Inpt Care Lvl 3 Diagnoses CHF (congestive heart failure) I50.9 Ischemic cardiomyopathy I25.5 Cardiac pacemaker Z95.0 Atrioventricular block, complete I44.2 Aortic valve disorder I35.9
--- NOTE | 2020-01-01 11:27 | Hospitalist Progress Note ---
Date of Service January 01, 2020 Assessment & Plan (1) Pulmonary emboli: Janine Graham is a 74 yo male with h/o metastatic lung cancer (s/p resection, chemo, XRT in 2006), T2DM, h/o complete heart block (PPM in 2013) who was admitted on 12/30/2019 for a RLL PE and acute CHF. Acute PE - RLL PE on CTA Chest 12/29 - Started IV heparin - Transitioned to Eliquis 10 mg PO BID x7 days starting 12/30 (on day #2 currently) - Will transition to Eliquis 5mg PO BID thereafter - Likely will need indefinite length of therapy given persistent risk factor (malignancy) (2) Acute on chronic congestive heart failure: - BNP 8760, interval progression of chronic interstitial pulmonary edema and small bilateral pulmonary effusions per CXR/CTA-Chest on 12/29 - s/p Lasix 40mg IV x1 in ED. - No SOB this AM per patient - Net -2.4L this admission - Cr stable/WNL at 1.17 - TTE (12/30): - Moderate to severe LV systolic function reduction - Moderate to severe global hypokinesis of LV - EF = 25-30% - Per cardiology consult: - Exercise stress echo ordered for tomorrow AM - Switch metoprolol succinate to carvedilol 12.5 mg twice a day to start and titrate to 25 mg twice a day - Switch from losartan to Entresto, starting at the lowest dose (50 mg combined dose) - This could be accomplished here or as an outpatient - Continue home Toprol XL 100mg PO QHS and Losartan 50mg PO QAM - Low-sodium/fluid-restricted diet - Strict I&Os, daily weights (3) Lung mass: - Per Pulm, patient will be discussed with her primary boarding house cook Dr. Stephens for possible outpatient PET/CT as outpatient - Note: Patient under Dr Stephens with ongoing workup and prior biopsy in 08/2019 showing benign chronic inflammatory tissue (4) Elevated troponin: - No chest pain, EKG w/o ST/T-wave changes, Troponin .062 --> .056 - Suspect demand ischemia 2/2 to PE and CHF exacerbation (5) Asthma-COPD overlap syndrome: - No acute exacerbation, no recent increased use of home inhalers or increased cough/wheezing - Albuterol PRN (6) T1DM (type 1 diabetes mellitus): - HbA1C 6.1 in 10/2019 - Continue SSI/basal dosing per Pharmacy (7) HTN (hypertension): - Continue home Toprol and Lisinopril as mentioned above (8) Hypothyroidism: - TSH 1.78 in 06/2019 - Continue home levothyroxine 100mcg PO daily FEN/GI: DM1, Heart Healthy DVT Prophylaxis: Eliquis 10mg PO BID Code Status: Conditional (all treatments outside of cardiac arrest) Disposition: med/surg with tele Admission and Anticipated Discharge Date Admission Date: December 30, 2019 Supervising Physician Co-Signing Physician Notes Resident Physician Supervision Note: I independently interviewed and examined the patient and verified the joel history and physical, reviewed labs and image studies, discussed the case with the resident Dr. Anaya and agree with the findings and care plan. Subjective Patient sitting at bedside chair today in AM. She reports feeling much better, no complaints of SOB today. Was hoping to get discharged today but explained that per cardiology she should get stress test and if significant ischemia should get catheterization. Patient understands and is in agreement with the plan. Review of Systems Constitutional: no fever and no chills Respiratory: no cough and no dyspnea Cardiovascular: no chest pain, no palpitations and no edema Gastrointestinal: no abdominal pain, no nausea and no vomiting Physical Exam Constitutional: WD/WN, vitals as above no acute distress Respiratory: normal respiratory effort, lungs clear to auscultation Cardiovascular: RRR, no murmur, no edema Heart Sounds: normal S1 and normal S2 Gastrointestinal (Abdomen): normal bowel sounds, soft, nontender, no hepatosplenomegaly Skin: no rashes, warm and dry Psychiatric: A+Ox3, euthymic affect Results & Data Results & Data ([facility]) Vital Signs (Past 12 Hours) Vital Signs Temp Pulse Resp BP Pulse Ox 01/01/20 07:15 36.7 C 90 18 164/75 H 94 01/01/20 03:05 36.7 C 84 18 136/69 94 Resident Activity Tracking Resident Involvement: Resident Care Provided Care Provided: Adult Hospital Medicine (1) Pulmonary emboli Acute cor pulmonale presence: without acute cor pulmonale Chronicity: acute Pulmonary embolism type: unspecified Qualified Code(s): I26.99 - Other pulmonary embolism without acute cor pulmonale
[2020-01-01] MEDS: FAMOTIDINE 10 MG TABLET PO PRN ×2 (13:10→22:02)
--- NOTE | 2020-01-01 13:25 | Pharmacy Report ---
Pharmacy Glycemic Short Note 2 - Date of Service January 01, 2020 - Glycemic Short BSG Results (Last 24 hours): OUTPATIENT ANTIDIABETIC REGIMEN: * Lantus 7 units SQ BID * Aspart SS (up to 30 units per day) * Breakfast carb ratio- 1:8 * Lunch carb ratio- 1:10 * Dinner carb ratio- 1:15 * A1c = 6.1% (10/31/19) ASSESSMENT: 12/31: * Janine received a total of 32 units of insulin yesterday * 14 units basal + 18 units bolus * BSGs were [phone] mg/dL - uncontrolled * Fasting BSG this AM was elevated at 227 mg/dL - not taken after patient had eaten anything * Will increase basal insulin dose by ~20% * Consistent trends in elevated post prandial BSGs * Therefore, will tighten correctional/prandial insulin parameters to reflect that of weight/stress of 3 12/30: * 74 you type 1 DM female admitted with shortness of breath due to PE. Patient is maintained on IV heparin infusion. * Fasting BSG of 133 mg/dL is at goal. Home dose of Lantus 7 units BID was continued on admission (with order to give less for BSG < 120 mg/dL). * Post prandial BSGs were elevated yesterday. Will change novolog carb ratio to be similar to home regimen. * Of note, POC at breakfast resulted at 354 mg/dL. Per RN, this BSG was taken after patient ate bowl of cereal with milk. I instructed RN to cover carbohydrates from breakfast but NOT to give correctional insulin based on this value. PLAN FOR INPATIENT GLYCEMIC CONTROL: * Basal insulin - increased * Received Lantus 7 units this AM * Lantus 10 units SC HS ordered * Bolus insulin - tightened CF/CR * NovoLog per scale ACHS or Q6hrs while NPO * Goal Range: Low 110 mg/dL - High 140 mg/dL * Correction Factor: 25 mg/dL/unit * Nutritional / Prandial insulin per carb ratio of 1 unit per 8 grams CHO consumed PLAN FOR DISCHARGE: * A1c of 6.1% is at goal. It is reasonable to continue home regimen on discharge as long as patient denies frequent hypoglycemia. * Continue to follow with outpatient endocrinology group for dose adjustment
[2020-01-01] MEDS: ASPIRIN 81 MG ECTAB PO SCH (20:16)
[2020-01-01] MEDS: APIXABAN 5 MG TABLET PO SCH (20:17)
[2020-01-01] MEDS: ATORVASTATIN 40 MG TAB PO SCH (20:18)
[2020-01-01] MEDS: METOPROLOL SUCC 50MG EXT REL TAB PO SCH (20:19)
[2020-01-01] MEDS: EZETIMIBE 10 MG TABLET PO SCH (20:20)
[2020-01-01] MEDS: CHOLECALCIFEROL 1,000 UNITS 25 MCG TAB PO SCH (20:20)
[2020-01-02] MEDS: LEVOTHYROXINE SODIUM 100 MCG TABLET PO SCH (06:07)
[2020-01-02 07:00] LABS: Basophils # (auto) 0.03 K/uL (0-0.2); Basophils % (auto) 0.4 %; Eosinophils # (auto) 0.15 K/uL (0-0.5); Eosinophils % (auto) 2.2 %; Hematocrit (blood only) 37.1 % (37-47); Hemoglobin 12.2 g/dL (12.0-16.0); Immature Granulocytes # (auto) 0.03 K/uL (0.00-0.02); Immature Granulocytes % (auto) 0.4 %; Lymphocytes # (auto) 1.68 K/uL (1.2-3.4); Lymphocytes % (auto) 24.2 %; Mean Corpuscular Hemoglobin 30.2 pg (25-34); Mean Corpuscular Hgb Conc 32.9 g/dL (32-36); Mean Corpuscular Volume 91.8 fL (80-100); Mean Platelet Volume 9.5 fL (7.4-10.4); Monocytes # (auto) 0.85 K/uL (0.11-0.59); Monocytes % (auto) 12.2 %; Neutrophils % (auto) 60.6 %; Platelet Count 214 K/uL (130-400); RDW Coefficient of Variation 15.7 % (11.5-14.5); RDW Standard Deviation 52.9 fL (36.4-46.3); Red Blood Count 4.04 M/uL (4.2-5.4); White Blood Count 6.94 K/uL (4.8-10.8)
[2020-01-02] MEDS: APIXABAN 5 MG TABLET PO SCH ×2 (08:05→20:12)
[2020-01-02] MEDS: LOSARTAN POTASSIUM 50 MG TAB PO SCH (08:05)
[2020-01-02 08:06] LABS: BUN Creatinine Ratio 21.9 (10-20); Creatinine Clr Calc Pharmacy 38.5 ml/min; Est GFR (African American) 58.6; Est GFR (Non-African American) 50.5; Potassium 4.2 mmol/L (3.5-5.1)
[2020-01-02] MEDS: CALCIUM 600MG + VIT D 400 IU TAB PO SCH (08:06)
[2020-01-02] MEDS: MEGESTROL ACETATE 40 MG TAB PO SCH (08:06)
[2020-01-02] MEDS: FLUTICASONE PROPIONATE NA SPR 16 GM BTL NAE SCH (08:06)
[2020-01-02] MEDS: INSULIN ASPART 100 UNITS/ML 3 ML PEN SC SCH ×4 (08:09→20:14)
[2020-01-02] MEDS: INSULIN GLARGINE SOLOSTAR 100 UNITS/ML 3 ML PEN SC SCH ×2 (08:11→20:12)
--- NOTE | 2020-01-02 09:41 | Hospitalist Progress Note ---
Date of Service January 02, 2020 Assessment & Plan (1) Pulmonary emboli: Janine Graham is a 74 yo male with h/o metastatic lung cancer (s/p resection, chemo, XRT in 2006), T2DM, h/o complete heart block (PPM in 2013) who was admitted on 12/30/2019 for a RLL PE and acute CHF. Acute PE - RLL PE on CTA Chest 12/29 - Started IV heparin - Transitioned to Eliquis 10 mg PO BID x7 days starting 12/30 (on day #2 currently) - Will transition to Eliquis 5mg PO BID thereafter - Likely will need indefinite length of therapy given persistent risk factor (malignancy) (2) Acute on chronic congestive heart failure: - BNP 8760, interval progression of chronic interstitial pulmonary edema and small bilateral pulmonary effusions per CXR/CTA-Chest on 12/29 - s/p Lasix 40mg IV x1 in ED. - No SOB this AM per patient - Net -3.2L this admission - Cr stable/WNL at 1.08 - TTE (12/30): - Moderate to severe LV systolic function reduction - Moderate to severe global hypokinesis of LV - EF = 25-30% - Per cardiology consult: - Exercise stress echo ordered for tomorrow (01/01) AM--switched to nuclear Lexiscan stress test per cardiology - Switch metoprolol succinate to carvedilol 12.5 mg twice a day to start and titrate to 25 mg twice a day - Switch from losartan to Entresto, starting at the lowest dose (50 mg combined dose) - This could be accomplished here or as an outpatient - Switched from metoprolol to carvedilol 12.5mg PO BID - Switched from losartan to Entresto 24/26mg PO BID - Low-sodium/fluid-restricted diet - Lexiscan stress test performed--results pending, will follow - Strict I&Os, daily weights (3) Lung mass: - Per Pulm, patient will be discussed with her primary bicycle subassembler Dr. Stephens for possible outpatient PET/CT as outpatient - Note: Patient under Dr Stephens with ongoing workup and prior biopsy in 08/2019 showing benign chronic inflammatory tissue (4) Elevated troponin: - No chest pain, EKG w/o ST/T-wave changes, Troponin .062 --> .056 - Suspect demand ischemia 2/2 to PE and CHF exacerbation (5) Asthma-COPD overlap syndrome: - No acute exacerbation, no recent increased use of home inhalers or increased cough/wheezing - Albuterol PRN (6) T1DM (type 1 diabetes mellitus): - HbA1C 6.1 in 10/2019 - Continue SSI/basal dosing per Pharmacy (7) HTN (hypertension): - Continue home Toprol and Lisinopril as mentioned above (8) Hypothyroidism: - TSH 1.78 in 06/2019 - Continue home levothyroxine 100mcg PO daily FEN/GI: DM1, Heart Healthy, low-sodium, fluid restricted to 1200ml DVT Prophylaxis: Eliquis 10mg PO BID Code Status: Conditional (all treatments outside of cardiac arrest) Disposition: med/surg with tele Admission and Anticipated Discharge Date Admission Date: December 30, 2019 Supervising Physician Co-Signing Physician Notes Resident Physician Supervision Note: I independently interviewed and examined the patient and verified the joel history and physical, reviewed labs and image studies, discussed the case with the resident Dr. Anaya and agree with the findings and care plan. Subjective Patient seen at bedside this morning. No acute events overnight. Reports feeling well with no new complaints. Denies CP, palpitations, SOB, n/v, ROOT, dizziness. Will be taken for stress test later today. Review of Systems Constitutional: no fever, no chills and no weakness Respiratory: no cough and no dyspnea Cardiovascular: no chest pain, no palpitations and no edema Gastrointestinal: no abdominal pain, no nausea and no vomiting Physical Exam Constitutional: WD/WN, vitals as above no acute distress Respiratory: normal respiratory effort, lungs clear to auscultation Cardiovascular: RRR, no murmur, no edema Heart Sounds: normal S1 and normal S2 Gastrointestinal (Abdomen): normal bowel sounds, soft, nontender, no hepatosplenomegaly Skin: no rashes, warm and dry Psychiatric: A+Ox3, euthymic affect Results & Data Results & Data ([facility]) Vital Signs (Past 12 Hours) Vital Signs Temp Pulse Pulse Resp BP BP Pulse Ox 01/02/20 07:55 36.6 C 87 20 132/84 96 01/02/20 03:25 36.5 C 87 20 117/70 96 01/02/20 01:22 88 01/01/20 23:57 36.7 C 81 20 119/68 96 Resident Activity Tracking Resident Involvement: Resident Care Provided Care Provided: Adult Hospital Medicine (1) Pulmonary emboli Acute cor pulmonale presence: without acute cor pulmonale Chronicity: acute Pulmonary embolism type: unspecified Qualified Code(s): I26.99 - Other pulmonary embolism without acute cor pulmonale
--- NOTE | 2020-01-02 10:03 | Cardiology Progress Note ---
Date of Service January 02, 2020 Assessment & Plan (1) CHF (congestive heart failure): -- She presented with congestive heart failure shortness of breath -- probably a combination of that and possible pulmonary embolism. -- Currently asymptomatic, appears euvolemic. -- LVEF has decreased from 45% in July 2018, it is currently 25% with global hypokinesis. (2) Ischemic cardiomyopathy: -- With worsening LV systolic function recommend Lexiscan Cardiolite to rule out ischemia. -- Worsening could be secondary pacing from the RV 100% of the time. -- If any significant ischemia consider cardiac catheterization. -- Stop Losartan. -- Begin Entresto 24-26 mg b.i.d.. First dose will be this evening -- Stop Metoprolol. -- Begin Carvedilol 12.5 mg b.i.d. -- titrate as BP allows. First dose will be this evening. -- Check BMP tomorrow morning. (3) Cardiac pacemaker: -- She has a dual-chamber pacemaker and is now pacing all of the time in the right ventricle. -- If no evidence of myocardial ischemia could consider upgrading to a biventricular pacemaker versus biventricular AICD (depending on her LV function on optimized medical therapy). (4) Atrioventricular block, complete: -- She had intermittent complete heart block in the past, now she paces from the RV 100% of the time. -- This could be a cause of her worsening LV systolic function. (5) Aortic valve disorder: -- Aortic valve appears to be functioning appropriately on Echocardiography. -- This is not the cause of her LV systolic function. Admission and Anticipated Discharge Date Admission Date: December 30, 2019 Supervising Physician Co-Signing Physician Notes I discussed the results of the nuclear stress test with the patient. It shows a possible anteroapical defect, although it is not clear-cut. I am going to review this in further detail and see whether catheterization is warranted, I am not sure that it is. The patient would prefer to go home and come in later for catheterization rather than potentially doing it tomorrow, I think that is safe and we now have her on carvedilol and Entresto starting today. If she tolerates these I think it is safe to have her go home, we will follow her up closely in heart failure clinic and further titrate her medications. If we feel we should do a catheterization we will arrange that as an outpatient in the future. Subjective Mrs. Graham is a 74 year old female with a history of CAD s/p CABG x 3 Vessels 04/04/2013 (HINTON to LAD, SVG to OM, SVG to PDA), Aortic Stenosis s/p Bioprosthetic AVR 04/04/2013, Ischemic Cardiomyopathy, and Complete Heart Block s/p Dual Chamber Pacemaker who was admitted with worsening LV systolic function and an exacerbation of CHF. Her LVEF was 45% in 2019 and it is now down to 25%. She is currently pacing from the RV 100% of the time whereas in the past she would pace intermittently -- which could be the cause of her worsening LV systolic function. She has not had any anginal symptoms but has CAD so we need to rule out myocardial ischemia which could contribute to worsening LV function. Patient offers no complaints today. Her breathing is at baseline. She specifically denies any chest discomfort or angina pectoris. Physical Exam Physical Exam: GENERAL: Patient in no acute distress. HEENT: Head is atraumatic, normocephalic. EOM's intact. Facies symmetric. No perioral cyanosis. NECK: No JVD. JVP is at the level of the clavicle sitting upright. Carotid upstrokes are + 2 bilaterally. No bruits are noted. CHEST/LUNGS: Clear to auscultation throughout all lung hill. No wheezes, rales, or crackles. CVS: S1 and S2 are regular with a grade 1/6 basal systolic murmur. No obvious diastolic murmurs. No gallops or rubs. PMI is nondisplaced. EXTREMITIES: No clubbing or cyanosis. No edema. Intact radial pulses bilaterally. NEUROLOGIC EXAM: Patient is awake, alert, and oriented. Pleasant and cooperative. Answers questions appropriately. Speech is clear. TELEMETRY: -- Ventricular paced rhythm in the 70 to 80 bpm. Results & Data ([facility]) Vital Signs (Past 12 Hours) Vital Signs Temp Pulse Pulse Resp BP BP Pulse Ox 01/02/20 07:55 36.6 C 87 20 132/84 96 01/02/20 03:25 36.5 C 87 20 117/70 96 01/02/20 01:22 88 01/01/20 23:57 36.7 C 81 20 119/68 96 Laboratory Results Laboratory Results - last 24 hr 01/01/20 01/01/20 01/01/20 12:18 16:16 20:06 WBC RBC Hgb Hct MCV MCH MCHC RDW Std Deviation RDW Coeff of Daniel Plt Count MPV Immature Gran % (Auto) Neut % (Auto) Lymph % (Auto) [place] % (Auto) Eos % (Auto) Baso % (Auto) Neut # (Auto) Lymph # (Auto) [place] # (Auto) Eos # (Auto) Baso # (Auto) Immature Gran # (Auto) Sodium Potassium Chloride Carbon Dioxide Anion Gap BUN Creatinine Est Cr Clr Drug Dosing Est GFR ( Amer) Est GFR (Non-Af Amer) BUN/Creatinine Ratio Glucose POC Glucose 212 H 219 H 189 H Calcium 01/02/20 01/02/20 01/02/20 06:40 06:40 07:39 WBC 6.94 RBC 4.04 L Hgb 12.2 Hct 37.1 MCV 91.8 MCH 30.2 MCHC 32.9 RDW Std Deviation 52.9 H RDW Coeff of Daniel 15.7 H Plt Count 214 MPV 9.5 Immature Gran % (Auto) 0.4 Neut % (Auto) 60.6 Lymph % (Auto) 24.2 [place] % (Auto) 12.2 Eos % (Auto) 2.2 Baso % (Auto) 0.4 Neut # (Auto) 4.20 Lymph # (Auto) 1.68 [place] # (Auto) 0.85 H Eos # (Auto) 0.15 Baso # (Auto) 0.03 Immature Gran # (Auto) 0.03 H Sodium 137 Potassium 4.2 Chloride 105 Carbon Dioxide 24 Anion Gap 8.0 BUN 24 H Creatinine 1.08 Est Cr Clr Drug Dosing 38.5 Est GFR ( Amer) 58.6 Est GFR (Non-Af Amer) 50.5 BUN/Creatinine Ratio 21.9 H Glucose 147 H POC Glucose 161 H Calcium 10.0 Medications Administered Active Medications Generic Name Dose Route Start Last Admin Trade Name Freq PRN Reason Stop Dose Admin Acetaminophen 650 mg 12/30/19 14:33 Acetaminophen 325 Mg Tab PO 01/29/20 14:32 Q4H PRN Pain or Fever Al Hydrox/Mg Hydrox/Simethicone 30 ml 12/30/19 21:25 Aluminum/Magnesium Susp 30 Ml Udc PO 01/29/20 21:24 Q6H PRN Heartburn Albuterol 2 puffs 12/30/19 14:33 Albuterol Hfa 8 Gm Inhaler INH 01/29/20 14:32 QID PRN Wheezing, shortness of breath Protocol Apixaban 10 mg 01/01/20 21:00 01/02/20 08:05 Apixaban 5 Mg Tablet PO 01/06/20 23:59 10 mg BID AYAD Administration Aspirin 81 mg 12/30/19 21:00 01/01/20 20:16 Aspirin 81 Mg Ectab PO 01/29/20 20:59 81 mg HS AYAD Administration Atorvastatin Calcium 80 mg 12/30/19 21:00 01/01/20 20:18 Atorvastatin 40 Mg Tab PO 01/29/20 20:59 80 mg HS AYAD Administration Carvedilol 12.5 mg 01/02/20 21:00 Carvedilol 12.5 Mg Tab PO 02/01/20 20:59 BID AYAD Dextrose 25 - 50 ml 12/30/19 15:00 Dextrose 50% 50 Ml Syringe IV 01/29/20 14:59 UD PRN Hypoglycemia Protocol Protocol Ezetimibe 10 mg 12/30/19 21:00 01/01/20 20:20 Ezetimibe 10 Mg Tablet PO 01/29/20 20:59 10 mg HS AYAD Administration Famotidine 10 mg 01/01/20 12:35 01/01/20 22:02 Famotidine 10 Mg Tablet PO 01/31/20 20:59 10 mg BID PRN Administration Heartburn Fluticasone Propionate 1 sprays 12/31/19 09:00 01/02/20 08:06 Fluticasone Propionate Na Spr 16 Gm Btl SALINA 01/30/20 08:59 1 sprays QAM AYAD Administration Glucagon 1 mg 12/30/19 15:00 Glucagon For Inj 1 Mg Vial SQ 01/29/20 14:59 UD PRN Hypoglycemia Protocol Protocol Glucose 15 - 30 gm 12/30/19 15:00 Glucose 40% Gel 15 Gm Tube PO 01/29/20 14:59 UD PRN Hypoglycemia Protocol Protocol Glucose 4 - 8 tabs 12/30/19 15:00 Glucose 10 Tabs/Tube PO 01/29/20 14:59 UD PRN Hypoglycemia Protocol Protocol Insulin Aspart 0 units 01/01/20 16:30 01/02/20 08:09 Insulin Aspart 100 Units/Ml 3 Ml Pen SC 01/30/20 11:29 Not Given ACHS [facility] Protocol Insulin Glargine 0 units 12/30/19 21:00 01/02/20 08:11 Insulin Glargine Solostar 100 Units/Ml 3 Ml Pen SC 01/29/20 20:59 7 units BID AYAD Administration Protocol Levothyroxine Sodium 100 mcg 12/31/19 06:30 01/02/20 06:07 Levothyroxine Sodium 100 Mcg Tablet PO 01/30/20 06:29 100 mcg DAILYBB AYAD Administration Megestrol Acetate 40 mg 12/31/19 09:00 01/02/20 08:06 Megestrol Acetate 40 Mg Tab PO 01/30/20 08:59 Not Given QAM AYAD Melatonin 3 mg 12/31/19 13:42 Melatonin 3 Mg Tab PO 01/30/20 13:41 HS PRN Sleep Miscellaneous 15 - 30 gm 12/30/19 15:00 Carbohydrates For Hypoglycemia PO 01/29/20 14:59 UD PRN Hypoglycemia Treatment Miscellaneous Information 1 ea 12/30/19 14:54 Pharmacy Glycemic Mgmt Consult N/A 01/29/20 14:53 UD PRN Consult Multivitamins/Minerals 1 tab 12/31/19 09:00 01/02/20 08:06 Calcium 600mg + Vit D 400 Iu Tab PO 01/30/20 08:59 Not Given DAILY AYAD Sacubitril/Valsartan 1 tab 01/02/20 21:00 Sacubitril-Valsartan 24-26 Mg Tab PO 02/01/20 20:59 BID [facility] Vitamin D 2,000 units 12/30/19 21:00 01/01/20 20:20 Cholecalciferol 1,000 Units 25 Mcg Tab PO 01/29/20 20:59 2,000 units HS [facility] Administration PG Care Time/CCT Total # of Minutes Spent Total Time Spent with Patient: Total time spent is greater than 50% in coordination of care (as documented) at patient's floor/unit and/or counseling patient: Coding Level of Care Code 78146 Subseq Hosp Care Lvl 3 Diagnoses CHF (congestive heart failure) I50.9 Ischemic cardiomyopathy I25.5 Cardiac pacemaker Z95.0 Atrioventricular block, complete I44.2 Aortic valve disorder I35.9 Time Spent (min) 30
--- NOTE | 2020-01-02 11:34 | Pharmacy Report ---
Pharmacy Glycemic Short Note 2 - Date of Service January 02, 2020 - Glycemic Short BSG Results (Last 24 hours): 01/01/20 01/01/20 01/01/20 12:18 16:16 20:06 Glucose POC Glucose 212 H 219 H 189 H 01/02/20 01/02/20 06:40 07:39 Glucose 147 H POC Glucose 161 H OUTPATIENT ANTIDIABETIC REGIMEN: * Lantus 7 units SQ BID * Aspart SS (up to 30 units per day) * Breakfast carb ratio- 1:8 * Lunch carb ratio- 1:10 * Dinner carb ratio- 1:15 * A1c = 6.1% (10/31/19) ASSESSMENT: 01/01: * Patient received a total of 35 units of insulin yesterday * 17 units basal + 18 units bolus * BSGs were elevated at [phone] mg/dL yesterday * Fasting BSG this AM was 161 mg/dL which is acceptable * Patient did receive an approximate 20% increase in basal dose yesterday. Will continue with this current basal scale as fasting BSG is much improved. * Of note, patient is NPO this AM for a stress test. I instructed to RN to still give the basal dose. 12/31: * Janine received a total of 32 units of insulin yesterday * 14 units basal + 18 units bolus * BSGs were [phone] mg/dL - uncontrolled * Fasting BSG this AM was elevated at 227 mg/dL - not taken after patient had eaten anything * Will increase basal insulin dose by ~20% * Consistent trends in elevated post prandial BSGs * Therefore, will tighten correctional/prandial insulin parameters to reflect that of weight/stress of 3 12/30: * 74 you type 1 DM female admitted with shortness of breath due to PE. Patient is maintained on IV heparin infusion. * Fasting BSG of 133 mg/dL is at goal. Home dose of Lantus 7 units BID was continued on admission (with order to give less for BSG < 120 mg/dL). * Post prandial BSGs were elevated yesterday. Will change novolog carb ratio to be similar to home regimen. * Of note, POC at breakfast resulted at 354 mg/dL. Per RN, this BSG was taken after patient ate bowl of cereal with milk. I instructed RN to cover carbohydrates from breakfast but NOT to give correctional insulin based on this value. PLAN FOR INPATIENT GLYCEMIC CONTROL: * Basal insulin - no change * Lantus 7-10 units SC BID: * 7 units for BSG < 180 mg/dL * 10 units for BSG 180 mg/dL or more * Bolus insulin - no change * NovoLog per scale ACHS or Q6hrs while NPO * Goal Range: Low 110 mg/dL - High 140 mg/dL * Correction Factor: 25 mg/dL/unit * Nutritional / Prandial insulin per carb ratio of 1 unit per 8 grams CHO consumed PLAN FOR DISCHARGE: * A1c of 6.1% is at goal. It is reasonable to continue home regimen on discharge as long as patient denies frequent hypoglycemia. * Continue to follow with outpatient endocrinology group for dose adjustment
[2020-01-02] MEDS ORDERED: REGADENOSON 0.4 MG/5 ML SYR IV ONE (12:17)
--- NOTE | 2020-01-02 16:25 | Myocardial Perfusion Study ---
Date of Service January 02, 2020 Myocardial Perfusion Study k Myocardial Perfusion Study Report [place] Act 112: Negative Myocardial Perfusion Study Report One day nuclear medicine technetium 99m Cardiolite myocardial perfusion scan Clinical history: This stress test is being performed because of a newly diagnosed cardiomyopathy. Comparison: None Technique: For the stress portion of the study, 33.1 mCi of technetium 99m Cardiolite IV was injected at 1:35 p.m. on January 02, 2020. Thirty minutes following the injection, imaging of the heart was performed in multiple projections. For the rest portion of the study, 10.2 mCi of technetium 99m Cardiolite was injected IV at 11:40 a.m. on January 02, 2020. One hour following the injection, imaging of the heart was performed in the same projections. Lexiscan administration: For the stress portion of the study, the patient received 0.4 mg of Lexiscan injected intravenously. The patient did not experience Lexiscan induced chest discomfort. There were no EKG changes. Following the study, the patient was hemodynamically stable and without complaints. Findings: The short axis, vertical long axis, horizontal long axis, rotating, and gated images were reviewed in detail. This study is somewhat technically limited as there was patchy tracer uptake both at stress and rest. The mid to distal anterior wall demonstrates decreased uptake at stress, but improved at rest. This represents either myocardial ischemia or breast attenuation. The left ventricle demonstrates decreased systolic function with global hypokinesis. The left ventricular ejection fraction is 25%. Conclusions: 1. Mid to distal anterior wall perfusion defect suggesting either ischemia or breast attenuation. 2. No Lexiscan induced chest pain. 3. No Lexiscan induced EKG changes. 4. Reduced left ventricular systolic function with global hypokinesis. Left ventricular ejection fraction is 25%. [facility] Myocardial perfusion code Procedure Code Procedure 1: Myocardial Perfusion Codes: 05090 Cardiovascular Stress Test, multiple Procedure 2: Myocardial Perfusion Codes: 58143 Cardiovascular Stress Test, supervision only Procedure 3: Myocardial Perfusion Codes: 12332 Cardiovascular Stress Test, interpretation and report
[2020-01-02] MEDS: carvediloL 12.5 MG TAB PO SCH (20:11)
[2020-01-02] MEDS: SACUBITRIL-VALSARTAN 24-26 MG TAB PO SCH (20:12)
[2020-01-02] MEDS: ASPIRIN 81 MG ECTAB PO SCH (20:12)
[2020-01-02] MEDS: ATORVASTATIN 40 MG TAB PO SCH (20:13)
[2020-01-02] MEDS: CHOLECALCIFEROL 1,000 UNITS 25 MCG TAB PO SCH (20:15)
[2020-01-02] MEDS: EZETIMIBE 10 MG TABLET PO SCH (20:15)
[2020-01-02] MEDS: FAMOTIDINE 10 MG TABLET PO PRN (23:12)
[2020-01-03] MEDS ORDERED: SODIUM CHLORIDE 0.9% 1000ML 250 ML IV ONE (00:01)
[2020-01-03] MEDS: LEVOTHYROXINE SODIUM 100 MCG TABLET PO SCH (05:42)
[2020-01-03 07:08] LABS: Basophils # (auto) 0.05 K/uL (0-0.2); Basophils % (auto) 0.7 %; Eosinophils # (auto) 0.17 K/uL (0-0.5); Eosinophils % (auto) 2.3 %; Hematocrit (blood only) 37.5 % (37-47); Hemoglobin 12.3 g/dL (12.0-16.0); Immature Granulocytes # (auto) 0.03 K/uL (0.00-0.02); Immature Granulocytes % (auto) 0.4 %; Lymphocytes # (auto) 1.74 K/uL (1.2-3.4); Lymphocytes % (auto) 23.9 %; Mean Corpuscular Hemoglobin 30.3 pg (25-34); Mean Corpuscular Hgb Conc 32.8 g/dL (32-36); Mean Corpuscular Volume 92.4 fL (80-100); Mean Platelet Volume 9.6 fL (7.4-10.4); Monocytes # (auto) 0.79 K/uL (0.11-0.59); Monocytes % (auto) 10.9 %; Neutrophils % (auto) 61.8 %; Platelet Count 205 K/uL (130-400); RDW Coefficient of Variation 15.8 % (11.5-14.5); Red Blood Count 4.06 M/uL (4.2-5.4); White Blood Count 7.28 K/uL (4.8-10.8)
[2020-01-03 07:28] LABS: Calcium 9.5 mg/dl (8.5-10.1); Creatinine Clr Calc Pharmacy 31.8 ml/min; Est GFR (African American) 46.8; Est GFR (Non-African American) 40.4; Potassium 4.6 mmol/L (3.5-5.1)
[2020-01-03] MEDS: APIXABAN 5 MG TABLET PO SCH (07:41)
[2020-01-03] MEDS: CALCIUM 600MG + VIT D 400 IU TAB PO SCH (07:41)
[2020-01-03] MEDS: SACUBITRIL-VALSARTAN 24-26 MG TAB PO SCH (07:41)
[2020-01-03] MEDS: MEGESTROL ACETATE 40 MG TAB PO SCH (07:41)
[2020-01-03] MEDS: carvediloL 12.5 MG TAB PO SCH (07:42)
[2020-01-03] MEDS: FLUTICASONE PROPIONATE NA SPR 16 GM BTL NAE SCH (07:42)
[2020-01-03] MEDS: INSULIN GLARGINE SOLOSTAR 100 UNITS/ML 3 ML PEN SC SCH (07:59)
[2020-01-03] MEDS: INSULIN ASPART 100 UNITS/ML 3 ML PEN SC SCH (07:59)
--- NOTE | 2020-01-03 08:28 | Discharge Summary ---
Date of Service January 03, 2020 Admission HPI Per Admitting Provider Janine Graham is a 74-year-old female with asthma/COPD overlap and lung mass who presents to the ER with acute shortness of breath that sudden started this morning. She denies any acute chest pain, cough, fever chills. Yesterday she was at her baseline self. No wheezing or improvement with her inhalers therefore decided to come to the ER for further workup. No loss of taste, smell, abdominal pain, diarrhea or known COVID-19 exposure. She is under pulmonology for more chronic shortness of breath on exertion and chronic cough. She notes a history of histoplasmosis. Former smoker, with in 2005. Prior history of partial right lower lobe resection in 2005 for stage IV endometrial cancer s/p chemoradiation. She underwent EBUS recently in August for subcarinal mass (first seen on CT in Jun, 2019). Pathology for this showed chronic active inflammation and reactive epithelial changes but no malignant cells. Discussed at multi-disciplinary rounds. In the ER CT for PE was subsequently positive with a filling defect seen in the right lower lobe pulmonary artery. She also has mild pulmonary edema and small bilateral pleural effusions which is progressed from her prior CT in September. BNP elevated at 8760 PG/mL. She was treated with a heparin drip in the ER for her PE. Lasix 40 mg IV given in ER for pulmonary edema. She was referred to medicine for admission for pulmonary embolism and elevated troponin. Admission Exam Per Admitting Provider Constitutional: WD/WN, vitals as above Eyes: + anicteric sclerae; normal pupil size ENMT: external ear and nose normal, oropharynx normal Neck: trachea midline, no thyromegaly Respiratory: normal respiratory effort; no respiratory distress, no labored breathing, no retractions, does not use accessory muscles, no cough and + not able to speak in complete sentence Auscultation: + wheezes (inspiratory on right side); no diminished lung sounds, no crackles, no rales and no rhonchi Cardiovascular: Rate/Rhythm: regular rate and regular rhythm Heart Sounds: no murmur Extremities: normal capillary refill; no calf tenderness and no pedal edema Gastrointestinal (Abdomen): normal bowel sounds, soft, nontender, no hepatosplenomegaly Musculoskeletal: no cyanosis or clubbing, extremities motor strength 5/5 Skin: no rashes, warm and dry Neurologic: moves all extremities and awake; not confused Psychiatric: A+Ox3, euthymic affect Principal Diagnosis Pulmonary embolism, acute on chronic CHF Discharge Exam Constitutional WD/WN, vitals as above no acute distress Respiratory normal respiratory effort, lungs clear to auscultation Cardiovascular RRR, no murmur, no edema Heart Sounds: normal S1 and normal S2 Gastrointestinal (Abdomen) normal bowel sounds, soft, nontender, no hepatosplenomegaly Skin no rashes, warm and dry Psychiatric A+Ox3, euthymic affect Discharge Data Allergies Allergy/AdvReac Type Severity Reaction Status Date / Time acetaminophen [From Percocet] AdvReac Gastrointestinal Verified 12/30/19 14:40 Upset oxycodone [From Percocet] AdvReac Gastrointestinal Verified 12/30/19 14:40 Upset Consultations 12/30/19 11:41 ED Decision to Admit Stat 12/31/19 15:50 Consult Cardiology Routine Ordered Studies 12/30/19 10:45 CT angio chest PE protocol Stat Hospital Course (1) Pulmonary emboli: Janine Graham is a 74 yo male with h/o metastatic lung cancer (s/p r esection, chemo, XRT in 2006), T2DM, h/o complete heart block (PPM in 2013) who was admitted on 12/30/2019 for a RLL PE and acute CHF. Acute PE - RLL PE on CTA Chest 12/29 - Received IV heparin drip - Transitioned to Eliquis 10 mg PO BID x7 days starting 12/30 (on day #3 at discharge) - Will transition to Eliquis 5mg PO BID thereafter - Likely will need indefinite length of therapy given persistent risk factor (malignancy) (2) Acute on chronic congestive heart failure: - BNP 8760, interval progression of chronic interstitial pulmonary edema and small bilateral pulmonary effusions per CXR/CTA-Chest on 12/29 - Net -3.1L this admission - TTE (12/30): - Moderate to severe LV systolic function reduction - Moderate to severe global hypokinesis of LV - EF = 25-30% - Per cardiology consult: - Switched metoprolol succinate to carvedilol 12.5 mg twice a day to start and titrate to 25 mg twice a day (will follow up as outpt for titration) - Switched from losartan to Entresto, starting at the lowest dose (50 mg combined dose) - Lexiscan stress test: 1. [id number] anterior wall perfusion defect suggesting either ischemia or breast attenuation. 2. No Lexiscan induced chest pain. 3. No Lexiscan induced EKG changes. 4. Reduced left ventricular systolic function with global hypokinesis. Left ventricular ejection fraction is 25%. - Director Of Rehabilitation assessment of nuclear stress test was not high risk and as such did not require catheterization, will follow as outpt for medication titration (3) Lung mass: - Per Pulm, patient will be discussed with her primary excavating supervisor Dr. Stephens for possible outpatient PET/CT as outpatient - Note: Patient under Dr Stephens with ongoing workup and prior biopsy in 08/2019 showing benign chronic inflammatory tissue (4) Elevated troponin: - No chest pain, EKG w/o ST/T-wave changes, Troponin .062 --> .056 - Suspected demand ischemia 2/2 to PE and CHF exacerbation (5) Asthma-COPD overlap syndrome: - No acute exacerbation, no recent increased use of home inhalers or in creased cough/wheezing (6) T1DM (type 1 diabetes mellitus): - HbA1C 6.1 in 10/2019 - Received SSI/basal dosing per Pharmacy (7) HTN (hypertension): - Medication changes as above per cardiology recommendations (8) Hypothyroidism: - TSH 1.78 in 06/2019 - Continued home levothyroxine 100mcg PO daily FEN/GI: DM1, Heart Healthy, low-sodium DVT Prophylaxis: Eliquis 10mg PO BID, transition to 5mg PO BID after 7 days as above Code Status: Conditional (all treatments outside of cardiac arrest) Disposition: Home Total Time Total Time Spent Total Time Spent (In Minutes): see Attending attestation Discharge Plan Discharge Items Patient Disposition: Home - Self-Care Reason For Visit: ACUTE PULM EMBOLISM,ACUTE ON CHRONIC CHF Discharge Diagnosis: Acute PE, Acute on chronic CHF Activity: Per Instructions section Non-emergency contact: Primary Care Provider Call non-emergency contact if: you have any medication questions and your symptoms worsen Follow-up/Referrals: Samuel Abreu [Primary Care Provider] - 01/09/20 9:10 am (You have a follow up appt on Wednesday at 910am. Please arrive 15 minutes prior to your appt. It is important that you keep this appt, if this appt does not fit your schedule, please call [phone] to reschedule. ) Shannan Ojeda PA-C [Physician Funeral Director] - 01/10/20 10:30 am (Congestive Heart Failure Program Appointment Information Early follow up is essential to managing your heart failure. An appointment has been scheduled for you with the [facility] Heart Failure Program within 7 days of discharge. Anticipate this visit to be 30-60 minutes long. Please expect a exhibit designer phone call from one of our nurses approximately 48 hours from discharge. They will also be placing an order for lab work to be completed 1-2 days prior to your heart failure follow up appointment. Please be sure to have this done so we can go over the results when you come in. Office Location The cardiology office building is located in front of the hospital at [address] Bring the following with you to your follow-up doctor appointments: Please bring your daily weight log any discharge paperwork all of your medication bottles with you to this visit. ) Diet: Carb Count or DM1, Heart Healthy and Low Sodium (2gm) Addtl Attending Provider Instructions: You came to [facility] due to shortness of breath. You were evaluated in the emergency room and found to have a pulmonary embolism in your right lower lobe. You were treated initially with anticoagulation intravenously and then transitioned to oral treatment. You were evaluated by cardiology and it was thought that your shortness of breath was most likely due to a combination of the pulmonary embolism, as well as congestive heart failure. You subsequently had a stress test done which was evaluated by your convenience store manager and found that it was not high risk. They felt that for the moment, medical therapy is appropriate without the need for catheterization. Pleas follow up with your convenience store manager as an outpatient for continued optimization of your treatment with your new medications. If you develop any sever new symptoms or worsened symptoms, please seek emergency care. Addtl Beam Saw Operator Provider Instructions: Call your Primary Care doctor if any of the following symptoms or problems start or get worse: * Shortness of breath or difficulty breathing * Wake up at night short of breath * Chest pain * Cough * Swelling of your hands, feet, or legs * More fatigued or tired with your normal activity * Palpitations - sudden fast heart beats WEIGHT * Weigh yourself every morning after using the bathroom. * Use the same scale. * Wear the same amount of clothing. * Write your weight down on a chart. * Call your Primary Care doctor if you gain more than 2-3 pounds in 1-2 days. MEDICATIONS * Use this discharge instruction sheet for medication instructions. * Take your medications at the time your doctor ordered. * Do not skip a dose of your medicines. * If you miss a dose of medicine, take it as soon as possible, but DO NOT DOUBLE A DOSE. * Read your medicine information when you get home. * Know all of the side effects of your medicine. If in doubt, ask your pharmacist * Call your Primary Care doctor's office if you have any side effects. * Be sure all of your doctors know what medicine and herbs you take (including cold, flu, and herbal medicine). Take the following with you to your follow-up doctor appointments: * Weight Chart * Medication List * List of questions Do not drink excessive alcohol, beer or wine. Pending Studies at Discharge: No Stand-Alone Forms: My [facility] [employer], Smoking Cessation Medications and DC Order Prescriptions: New carvedilol 12.5 mg tablet 12.5 mg PO BID Qty: 60 RF: 0 Entresto 24-26 mg tablet 1 tab PO BID Qty: 60 RF: 0 Eliquis 5 mg Tablet 10 mg PO BID 4 Days Qty: 16 RF: 0 Eliquis 5 mg tablet 5 mg PO BID Qty: 60 RF: 0 Continued (DME) OneTouch Ultra Blue Test Strip strip See Dose Instructions .ROUTE .MEDSUPPLY Qty: 300 RF: 3 insulin aspart U-100 [Novolog Flexpen U-100 Insulin] 100 unit/mL (3 mL) insulin pen See Rx Instructions .ROUTE .COMPLEX Qty: 30 RF: 3 Caltrate 600-D Plus Minerals 600 mg calcium- 800 unit-50 mg tablet 1 tab PO DAILY RF: 0 budesonide-formoterol [Symbicort] 80-4.5 mcg/actuation HFA aerosol inhaler 2 inh INH BID PRN (Reason: Shortness Of Breath Or Wheezing) Qty: 10.2 RF: 3 (DME) Dexcom G6 Sensor Device See Rx Instructions .ROUTE .MEDSUPPLY Qty: 3 RF: 0 cholecalciferol (vitamin D3) 2,000 unit capsule 2,000 units PO HS RF: 0 atorvastatin 80 mg tablet 80 mg PO HS RF: 0 megestrol 40 mg tablet 40 mg PO QAM RF: 0 (DME) lancets [OneTouch UltraSoft Lancets] Misc See Dose Instructions .ROUTE .MEDSUPPLY Qty: 50 RF: 0 (DME) insulin syringe-needle U-100 [BD Insulin Syringe Ultra-Fine] 0.5 mL 31 gauge x 5/16" syringe See Rx Instructions .ROUTE .MEDSUPPLY Qty: 10 RF: 0 (DME) pen needle, diabetic 30 gauge x 1/3" needle See Rx Instructions .ROUTE .MEDSUPPLY Qty: 1 RF: 0 glucagon HCl 1 mg recon soln See Rx Instructions IM .COMPLEX Qty: 1 RF: 1 aspirin 81 mg Tablet,Delayed Release (Dr/Ec) 81 mg PO HS RF: 0 Lantus U-100 Insulin 100 unit/mL solution 7 unit SQ BID RF: 0 albuterol sulfate 90 mcg/actuation HFA aerosol inhaler 2 inh INH QID RF: 0 fluticasone propionate [Allergy Relief (fluticasone)] 50 mcg/actuation spray,suspension 1 spray INTNAS QAM RF: 0 ezetimibe 10 mg tablet 10 mg PO HS RF: 0 levothyroxine 100 mcg capsule 100 mcg PO DAILY@0600 RF: 0 Discontinued metoprolol succinate 100 mg tablet extended release 24 hr 100 mg PO HS RF: 0 losartan 50 mg Tablet 50 mg PO QAM RF: 0 Discharge Orders: Discharge Order (Routine); Ordered 01/03/20 Ordered By: King Anaya Admission Data Admit Date/Time: 12/30/19 12:48 Attending Provider: Petty Ceballos Admit Provider: Brady Morales Primary Care Provider: Samuel Abreu Other Providers: Brady Morales ; Michel Barnes ; Ignacio Mendez Other Interventions: Discharge Summary Assessment (RN) Last Done: 01/03/20 10:26 Supervising Physician Co-Signing Physician Notes Resident Physician Supervision Note: I independently interviewed and examined the patient and verified the joel history and physical, reviewed labs and image studies, discussed the case with the resident Dr. Anaya and agree with the findings and care plan. Resident Activity Tracking Resident Involvement: Resident Care Provided Care Provided: Adult [facility] Medicine
--- NOTE | 2020-01-03 09:30 | Cardiology Progress Note ---
Date of Service January 03, 2020 Assessment & Plan (1) CHF (congestive heart failure): She presented with congestive heart failure (shortness of breath due probably to a combination of that and pulmonary embolism), she feels much better now. The cause of her congestive heart failure is most likely her reduced left ventricular function. (2) Ischemic cardiomyopathy: She has had a mild cardiomyopathy in the past, her ejection fraction in July 2018 was about 45% which may have been in part due to ventricular pacing. Ejection fraction is now much worse. This could be due to progression of coronary disease however she has not had symptoms to suggest that (however in 2013 when she had her bypass surgery she also does not recall having chest pain). I reviewed her nuclear stress test from yesterday with Dr. Ramos with regard to whether we should consider catheterization, we feel that it is not a high risk study and that it probably does not explain her reduced left ventricular function, especially since we have another likely cause for that. We feel that ongoing medical therapy for the moment is probably appropriate without catheterization. We know she has coronary disease so would not be a diagnostic study, it would only be looking for severe obstruction and even fixing that might be difficult based on her prior catheterization report. We need to continue to optimize medical therapy for her cardiomyopathy. I would continue carvedilol 12.5 mg twice a day for now and we should titrate to 25 mg twice a day if possible but as an outpatient. I would also recommend continuing Entresto at the current dose, we can also titrate this as an outpatient. We should arrange for her to be seen in our heart failure clinic to help titrate medications, I did talk to Shannan and she is aware. I will also follow-up with her myself as an outpatient to monitor her progress and decide on possible upgrade to an biventricular ICD. I suspect the most likely cause of her progressive cardiomyopathy is dyssynchrony from RV pacing. (3) Cardiac pacemaker: She has a dual-chamber pacemaker and is now pacing all of the time in the ventricle. The device appears to be working well on the monitor although I do not think it was evaluated in house. It is an RV only device and therefore she has a wide-complex which is likely leading to dyssynchrony and her cardiomyopathy (4) Atrioventricular block, complete: She had intermittent complete heart block initially, however more recently she has been pacing all of the time and this is a likely cause of her cardiomyopathy. If it is a pacer induced cardiomyopathy then I think we should upgrade to a biventricular device, possibly an ICD if her left ventricular function does not improve above 35% with medical therapy. I do not think we should do that immediately, I think we should alter her medical regimen as outlined above. (5) Aortic valve disorder: Aortic valve appears to be functioning well both by exam and echocardiography and does not explain her cardiomyopathy. Admission and Anticipated Discharge Date Admission Date: December 30, 2019 Subjective She is feeling well today, she is not short of breath, has no chest discomfort and is anxious to go home. We did keep her n.p.o. for possible catheterization today. Physical Exam Physical Exam: Constitutional: Alert, cooperative and in no distress. HEENT: Unremarkable Neck: No jugular venous distention, carotid pulses are normal and equal bilaterally without bruits. Pulmonary: Slight crackles at the right base, left lung is clear. Cardiac: Regular somewhat rapid rhythm with a very soft crescendo decrescendo murmur at the base, no gallop or rub. Abdomen: Soft, nontender with normal bowel sounds. Extremities: No edema. Distal pulses intact. Neurologic: No focal findings. Gait is steady. Skin: The device site is well-healed without erythema, swelling or tenderness. No rash, ecchymoses or petechiae. Results & Data ([facility]) Vital Signs (Past 12 Hours) Vital Signs Temp Pulse Pulse Resp BP BP Pulse Ox 01/03/20 07:26 36.5 C 98 H 16 125/71 97 01/03/20 03:15 36.6 C 93 H 20 91/56 L 98 01/03/20 01:40 90 109/64 01/03/20 00:30 90 01/03/20 00:00 36.5 C 88 20 89/52 L 96 Laboratory Results CBC 01/03/20 Range/Units 06:43 WBC 7.28 (4.8-10.8) K/uL RBC 4.06 L (4.2-5.4) M/uL Hgb 12.3 (12.0-16.0) g/dL Hct 37.5 (37-47) % Plt Count 205 (130-400) K/uL Neut # (Auto) 4.50 (1.4-6.5) K/uL Lymph # (Auto) 1.74 (1.2-3.4) K/uL [place] # (Auto) 0.79 H (0.11-0.59) K/uL Eos # (Auto) 0.17 (0-0.5) K/uL Baso # (Auto) 0.05 (0-0.2) K/uL Comprehensive Metabolic Panel 01/03/20 Range/Units 06:43 Sodium 135 L (136-145) mmol/L Potassium 4.6 (3.5-5.1) mmol/L Chloride 105 (98-107) mmol/L Carbon Dioxide 19 L (21-32) mmol/L BUN 33 H (7-18) mg/dl Creatinine 1.30 H (0.6-1.2) mg/dl Glucose 232 H (70-99) mg/dl Calcium 9.5 (8.5-10.1) mg/dl Intake and Output 01/02/20 01/03/20 01/03/20 22:59 06:59 14:59 Intake Total 200 / 450 250 / 450 Output Total 150 / 450 150 / 450 Balance 50 / 0 100 / 0 Intake: IV 250 / 250 Nss 1000ML 250 ml @ 999 mls/hr 250 / 250 IV .Q16M ONE Rx#:[id number] Oral 200 / 200 Output: Urine 150 / 450 150 / 450 Other: Other Intake Source npo Weight 64.3 kg Weight Measurement Method Standing Scale Diagnostic Findings Sinus rhythm with ventricular pacing, heart rate 80-90 typically. PG Care Time/CCT Total # of Minutes Spent Total Time Spent with Patient: Total time spent is greater than 50% in coordination of care (as documented) at patient's floor/unit and/or counseling patient: Coding Level of Care Code 81939 Subseq Hosp Care Lvl 3 Diagnoses CHF (congestive heart failure) I50.9 Ischemic cardiomyopathy I25.5 Cardiac pacemaker Z95.0 Atrioventricular block, complete I44.2 Aortic valve disorder I35.9
== END 2020-01-03 11:55 | disposition home or self-care (01) | DRG 175 ==
LOC: ED 08:35 → 2N 12:48 → SUATTDRO 12:48 → 2N 13:58

== ENCOUNTER 2020-03-05 09:10 | Observation (INO) ==
--- NOTE | 2020-03-05 09:57 | Emergency Department Note ---
Impression & Plan Congestive heart failure, SOB (shortness of breath), Chronic kidney disease, stage III (moderate) ED Provider Note NAME: GENNARO LEONG AGE: 74 SEX: F ARRIVES VIA: Walk-In INFORMANT: Patient, ED PROVIDER(S): Tj Nunez MD CHIEF COMPLAINT: Shortness of breath. PLAN: Disposition: Admit MEDICAL DECISION MAKING: The patient is a pleasant 74-year-old woman with a past medical history of chronic systolic heart failure with EF of 25-30%, CKD, PE on Eliquis, CAD, asthma/COPD who presents emergency department for worsening cough, congestion s hortness of breath over the past week in the setting of being exposed to her daughter 2 weeks ago who shortly thereafter was diagnosed with COVID-19 and was symptomatic. The patient does report increasing her weight and fluid retention but is taking her medications as prescribed. She also reports being prescribed a nebulizer machine 6 months ago which she also has been using but feels this does not help. Denies any objective fevers. She denies any nausea, vomiting, diarrhea. Review of the patient's last heart failure clinic visit documents a dry weight of 143 pounds. Today the patient is nearly 10 pounds over her dry weight. On arrival the patient is acute on chronically ill-appearing, mildly dyspneic with respiratory rate from upper 20s to low 30s but normal oxygen saturation. She does have some mild nasal congestion. She has diminished breath sounds at the bases. She has 1+ bilateral lower extremity edema which she reports is worsened recently. EKG is paced without overt acute ischemia. Chest x-ray is consistent with pulmonary edema with right greater than left pleural effusions with bibasilar consolidation. WBC and platelets within normal limits./H is decreased from prior values in December however could be related to a component of hemodilution in the setting of the patient's volume overload. Creatinine is 1.2 within recent range of values since December. LFTs unremarkable. Troponin 0.04, normal limits and decreased from prior values in December. BNP 8500 similar to December 2019 when she was diagnosed with pulmonary emboli and also managed for acute on chronic CHF. Covid-19 RNA, NAAT test was negative. Patient's weight gain exam and chest x-ray findings with similarly elevated BNP to previous CHF exacerbations, patient symptoms are most likely related to this. We did trial a dose of IV Lasix to see if she would have sufficient improvement for discharge. However despite avoiding 400 cc she did become profoundly dyspneic with ambulation and became tachypneic in the 30s and had desaturation to 92%. Upon reassessment the patient did prefer admission at this time. Dr. Morales, [facility] [place] [place] hospitalist, will evaluate the patient for admission. Triage Nursing notes reviewed and agree them. Prior medical records reviewed Vital Signs: reviewed and remarkable for tachypnea. Differential diagnosis: Reactive airway disease, pneumonia, pneumothorax, COPD, CHF, infections, cardiac ischemia, pulmonary embolism, musculoskeletal, gastrointestinal, as well as other pathologies. ER treatment provided: See below. Diagnostics interpreted by me: ECG: Atrial sensed ventricular paced rhythm, 99 bpm, no ectopy, no overt acute ischemia. Cardiac Monitoring:An order for continuous cardiac monitoring was placed and demonstrated Atrial sensed ventricular paced rhythm, 99 bpm, no ectopy. Laboratory studies: See below Imaging studies: XR chest 1V portable HISTORY: 74 years-old Female Chest Pain . Atypical chest pain COMPARISON: Chest radiograph and CTA chest 12/30/2019 TECHNIQUE: Portable AP view of the chest. FINDINGS: Moderate enlargement of the cardiac silhouette. Prior median sternotomy with left subclavian pacer. Bilateral reticular opacities are noted without pneumothorax. Right greater left pleural effusions with bibasilar and right midlung opacities. Degenerative changes of the shoulders and spine. IMPRESSION: 1. Cardiomegaly with pulmonary edema. 2. Right greater left pleural effusions with bibasilar consolidation. Consultation(s): Dr. Morales [facility] [place] [place] hospitalist. HPI: The patient is a pleasant 74-year-old woman with a past medical history of chronic systolic heart failure with EF of 25-30%, CKD, PE on Eliquis, CAD, Asthma/COPD who presents emergency department for worsening cough, congestion shortness of breath over the past week in the setting of being exposed to her daughter 2 weeks ago who shortly thereafter was diagnosed with COVID-19 and was symptomatic. The patient does report increasing her weight and fluid retention but is taking her medications as prescribed. She also reports being prescribed a nebulizer machine 6 months ago which she also has been using but feels this does not help. Denies any objective fevers. She denies any nausea, vomiting, diarrhea. Review of the patient's last heart failure clinic visit documents a dry weight of 143 pounds. Today the patient is nearly 10 pounds over her dry weight. ROS: See above HPI for pertinent positives & negatives. A total of 10 systems reviewed and were otherwise negative. PAST MEDICAL HISTORY:See Below PAST SURGICAL HISTORY:See Below FAMILY HISTORY:See Below SOCIAL HISTORY:See Below HOME MEDICATIONS:See Below ALLERGIES:See Below VITALS:See Below PHYSICAL EXAMINATION: GENERAL: Awake, alert, acute on chronically ill-appearing, in no distress HENT: Normocephalic, atraumatic. Oropharynx unremarkable. EYES: Normal conjunctiva. Sclera non-icteric. NECK: Supple. No nuchal rigidity. FROM. No JVD. RESPIRATORY: Managed breath sounds at the bases. CARDIAC: Tachycardic rate, normal rhythm. Extremities warm and well perfused. Pulses equal. ABDOMEN: Soft, non-distended. No tenderness to palpation. No rebound or guarding. No masses. RECTAL: Deferred. MUSCULOSKELETAL: Chest examination reveals no tenderness. The back is symmetrical on inspection without obvious abnormality. There is no CVA tenderness to palpation. No joint edema. LOWER EXTREMITIES: Calves are equal size bilaterally and non-tender. 1+ bilateral lower extremity edema. No discoloration. NEURO: Normal sensorium. No sensory or motor deficits noted. SKIN: No rash or jaundice noted. Tj Nunez MD Past Med/Surg History Medical History (Updated 03/06/20 @ 00:37 by Tj Nunez MD) Arthritis Chronic kidney disease, stage III (moderate) Cough REASON FOR INHALER Elevated troponin History of colon cancer History of hypertension History of rectal polyps Hx of cancer of endometrium Hyperlipidemia Hypothyroidism Lung tumor HX RT LOWER LUNG (SURGERY/CHEMO/RADIATION) Metastasis to lung Hematogenous Pacemaker [employer]. IMPLANTED 2013 FOR BIFASCICULAR BLOCK WITH TRANSIENT COMPLETE HEART BLOCK. LAST CHECKED 06/2019 [facility]. Pulmonary emboli T1DM (type 1 diabetes mellitus) DX 1954 Vitamin D deficiency Surgical History Family history of reaction to anesthesia DAUGHTER-GETS SICK H/O aortic valve replacement 2013 AT [employer] History of appendectomy History of bilateral tubal ligation History of bronchoscopy 2006 History of cardiac cath History of cataract surgery RT/LEFT History of colon resection History of colonoscopy History of esophagogastroduodenoscopy (EGD) History of lung surgery RT LOWER LOBE REMOVAL History of open reduction and internal fixation (ORIF) procedure LEFT HIP History of placement of chest tube with chemical pleurodesis (non-chemotherapeutic) History of tooth extraction History of total hysterectomy S/P CABG (coronary artery bypass graft) 2014 AT [employer] Family History Mother Hypertension Brother Family history of diabetes mellitus Family history of esophageal cancer Other Asthma Cancer Diabetes Social History Smoking Status: Former smoker Tobacco Type: Cigarettes Age Started Using Tobacco: 16; Age Quit Using Tobacco: 56; Second Hand Exposure: No; Do You Dip or Chew Tobacco: No; Tobacco Cessation Education Requested by Patient: No Hx Alcohol Use: No Hx Substance Use: No Preferred Language: British Communication Ability: Effective Track Maintainer Required: No Beliefs That Will Affect Care: None Current Living Situation: Spouse Other Information That Helps Us Care for You: No Feels Safe at Home: Yes Safety Concerns: Feels Safe At This Time Assistive Devices: Glasses Allergies Allergies Allergy/AdvReac Type Severity Reaction Status Date / Time acetaminophen [From Percocet] AdvReac Gastrointestinal Verified 03/05/20 10:18 Upset oxycodone [From Percocet] AdvReac Gastrointestinal Verified 03/05/20 10:18 Upset Home Meds Home Medications Medication Instructions Recorded Confirmed atorvastatin 80 mg tablet 80 mg PO HS tab 09/29/18 03/05/20 cholecalciferol (vitamin D3) 50 2,000 units PO HS cap 11/28/18 03/05/20 mcg (2,000 unit) capsule megestrol 40 mg tablet 40 mg PO QAM tab 02/19/19 03/05/20 lancets #50 ea 02/22/19 02/13/20 blood-glucose sensor #3 ea 06/28/19 02/13/20 calcium 600 mg-D3 800 unit-mag11 1 tab PO DAILY 11/02/19 03/05/20 50 aa-ekbi-zniuvr-loyd-s.borat tablet insulin syringe-needle U-100 0.5 #10 ea 11/02/19 02/13/20 mL 31 gauge x 5/16" pen needle, diabetic 30 gauge x #1 11/02/19 02/13/20 1/3" Lantus U-100 Insulin 7 unit SQ BID 12/30/19 03/05/20 albuterol sulfate 2 inh INH QID 12/30/19 03/05/20 aspirin 81 mg PO HS 12/30/19 03/05/20 ezetimibe 10 mg PO HS 12/30/19 03/05/20 levothyroxine 100 mcg PO DAILY@0600 12/30/19 03/05/20 omeprazole 40 mg PO DAILY 03/05/20 03/05/20 Previous Rx's Medication Instructions Recorded [employer] Ultra Blue Test Strip #300 ea NS 02/07/19 glucagon HCl 1 mg/mL solution for See Rx Instructions IM .COMPLEX #1 02/22/19 injection ea Novolog Flexpen U-100 Insulin 100 See Rx Instructions .ROUTE 08/21/19 unit/mL (3 mL) subcutaneous .COMPLEX #30 ml NS apixaban [Eliquis] 5 mg PO BID #60 tab 01/03/20 carvedilol 25 mg tablet 25 mg PO BID #90 tab 01/25/20 budesonide-formoterol HFA 80 2 inh INH BID PRN #10.2 g 01/30/20 mcg-4.5 mcg/actuation aerosol inhaler sacubitril 24 mg-valsartan 26 mg 1 tab PO BID #180 tab 02/02/20 tablet fluticasone propionate 50 1 spray INTNAS QAM #15.8 ml 02/27/20 mcg/actuation nasal spray,suspension Results & Data (ED) Vital Signs Vital Signs - 24 hr 03/05/20 09:15 03/05/20 09:36 03/05/20 09:57 Temperature 36.5 C Temperature Source Temporal Artery Scan Pulse Rate 101 H 98 H 95 H Pulse Rate [Exercises] Pulse Rate [Left] Pulse Rate from SpO2 Sensor 95 H Respiratory Rate 20 30 H 25 H Respiratory Rate [Exercises] Respiratory Effort / Characteristics Spontaneous Respiratory Pattern Tachypnea Blood Pressure 133/63 142/66 H Blood Pressure [Right Arm] Blood Pressure Mean 86 110 Blood Pressure Mean [Right Arm] Blood Pressure Position [Right Arm] Pulse Oximetry 98 97 100 Pulse Oximetry [Exercises] Oxygen Delivery Method Room Air Room Air Oxygen Flow Rate Sepsis Recent Fever Within 48 Hours No Sepsis New/Unexplained Change in Mental Status N/A Sepsis Action Taken by Nursing No Action Required 03/05/20 10:01 03/05/20 10:10 03/05/20 10:20 Temperature Temperature Source Pulse Rate 95 H 98 H 95 H Pulse Rate [Exercises] Pulse Rate [Left] 95 H Pulse Rate from SpO2 Sensor 95 H 98 H 94 H Respiratory Rate 28 H 34 H 29 H Respiratory Rate [Exercises] Respiratory Effort / Characteristics Spontaneous Respiratory Pattern Tachypnea Blood Pressure Blood Pressure [Right Arm] 142/66 H Blood Pressure Mean Blood Pressure Mean [Right Arm] 91 Blood Pressure Position [Right Arm] Lying Pulse Oximetry 100 100 100 Pulse Oximetry [Exercises] Oxygen Delivery Method Nasal Cannula Oxygen Flow Rate 2 Sepsis Recent Fever Within 48 Hours Sepsis New/Unexplained Change in Mental Status Sepsis Action Taken by Nursing 03/05/20 10:30 03/05/20 10:40 03/05/20 10:50 Temperature Temperature Source Pulse Rate 93 H 92 H 89 Pulse Rate [Exercises] Pulse Rate [Left] Pulse Rate from SpO2 Sensor 93 H 92 H 91 H Respiratory Rate 26 H 24 23 Respiratory Rate [Exercises] Respiratory Effort / Characteristics Respiratory Pattern Blood Pressure Blood Pressure [Right Arm] Blood Pressure Mean Blood Pressure Mean [Right Arm] Blood Pressure Position [Right Arm] Pulse Oximetry 100 100 100 Pulse Oximetry [Exercises] Oxygen Delivery Method Oxygen Flow Rate Sepsis Recent Fever Within 48 Hours Sepsis New/Unexplained Change in Mental Status Sepsis Action Taken by Nursing 03/05/20 11:00 03/05/20 11:10 03/05/20 11:20 Temperature Temperature Source Pulse Rate 92 H 91 H 89 Pulse Rate [Exercises] Pulse Rate [Left] Pulse Rate from SpO2 Sensor 92 H Respiratory Rate 29 H 32 H 26 H Respiratory Rate [Exercises] Respiratory Effort / Characteristics Respiratory Pattern Blood Pressure Blood Pressure [Right Arm] Blood Pressure Mean Blood Pressure Mean [Right Arm] Blood Pressure Position [Right Arm] Pulse Oximetry 100 Pulse Oximetry [Exercises] Oxygen Delivery Method Oxygen Flow Rate Sepsis Recent Fever Within 48 Hours Sepsis New/Unexplained Change in Mental Status Sepsis Action Taken by Nursing 03/05/20 11:30 03/05/20 11:40 03/05/20 11:50 Temperature Temperature Source Pulse Rate 90 87 87 Pulse Rate [Exercises] Pulse Rate [Left] Pulse Rate from SpO2 Sensor 89 87 87 Respiratory Rate 30 H 26 H 22 Respiratory Rate [Exercises] Respiratory Effort / Characteristics Respiratory Pattern Blood Pressure Blood Pressure [Right Arm] Blood Pressure Mean Blood Pressure Mean [Right Arm] Blood Pressure Position [Right Arm] Pulse Oximetry 100 100 100 Pulse Oximetry [Exercises] Oxygen Delivery Method Oxygen Flow Rate Sepsis Recent Fever Within 48 Hours Sepsis New/Unexplained Change in Mental Status Sepsis Action Taken by Nursing 03/05/20 12:00 03/05/20 12:10 03/05/20 12:20 Temperature Temperature Source Pulse Rate 87 92 H 92 H Pulse Rate [Exercises] Pulse Rate [Left] 90 Pulse Rate from SpO2 Sensor 87 90 93 H Respiratory Rate 18 26 H 27 H Respiratory Rate [Exercises] Respiratory Effort / Characteristics Respiratory Pattern Blood Pressure Blood Pressure [Right Arm] 137/78 Blood Pressure Mean Blood Pressure Mean [Right Arm] 97 Blood Pressure Position [Right Arm] Pulse Oximetry 100 100 100 Pulse Oximetry [Exercises] Oxygen Delivery Method Oxygen Flow Rate Sepsis Recent Fever Within 48 Hours Sepsis New/Unexplained Change in Mental Status Sepsis Action Taken by Nursing 03/05/20 12:22 03/05/20 12:30 03/05/20 12:40 Temperature Temperature Source Pulse Rate 91 H 91 H Pulse Rate [Exercises] 94 H Pulse Rate [Left] Pulse Rate from SpO2 Sensor 91 H 91 H Respiratory Rate 34 H 29 H Respiratory Rate [Exercises] 32 H Respiratory Effort / Characteristics Respiratory Pattern Blood Pressure Blood Pressure [Right Arm] Blood Pressure Mean Blood Pressure Mean [Right Arm] Blood Pressure Position [Right Arm] Pulse Oximetry 100 100 Pulse Oximetry [Exercises] 92 Oxygen Delivery Method Room Air Oxygen Flow Rate Sepsis Recent Fever Within 48 Hours Sepsis New/Unexplained Change in Mental Status Sepsis Action Taken by Nursing 03/05/20 12:50 03/05/20 12:56 03/05/20 13:00 Temperature Temperature Source Pulse Rate 91 H 89 91 H Pulse Rate [Exercises] Pulse Rate [Left] Pulse Rate from SpO2 Sensor 91 H 89 91 H Respiratory Rate 26 H 27 H 28 H Respiratory Rate [Exercises] Respiratory Effort / Characteristics Respiratory Pattern Blood Pressure 137/78 Blood Pressure [Right Arm] Blood Pressure Mean 111 Blood Pressure Mean [Right Arm] Blood Pressure Position [Right Arm] Pulse Oximetry 100 100 100 Pulse Oximetry [Exercises] Oxygen Delivery Method Oxygen Flow Rate Sepsis Recent Fever Within 48 Hours Sepsis New/Unexplained Change in Mental Status Sepsis Action Taken by Nursing 03/05/20 13:10 03/05/20 13:20 03/05/20 13:30 Temperature Temperature Source Pulse Rate 92 H 87 86 Pulse Rate [Exercises] Pulse Rate [Left] Pulse Rate from SpO2 Sensor 91 H 88 87 Respiratory Rate 26 H 25 H 22 Respiratory Rate [Exercises] Respiratory Effort / Characteristics Respiratory Pattern Blood Pressure Blood Pressure [Right Arm] Blood Pressure Mean Blood Pressure Mean [Right Arm] Blood Pressure Position [Right Arm] Pulse Oximetry 100 100 100 Pulse Oximetry [Exercises] Oxygen Delivery Method Oxygen Flow Rate Sepsis Recent Fever Within 48 Hours Sepsis New/Unexplained Change in Mental Status Sepsis Action Taken by Nursing 03/05/20 13:40 Temperature Temperature Source Pulse Rate 87 Pulse Rate [Exercises] Pulse Rate [Left] Pulse Rate from SpO2 Sensor 88 Respiratory Rate 22 Respiratory Rate [Exercises] Respiratory Effort / Characteristics Respiratory Pattern Blood Pressure Blood Pressure [Right Arm] Blood Pressure Mean Blood Pressure Mean [Right Arm] Blood Pressure Position [Right Arm] Pulse Oximetry 100 Pulse Oximetry [Exercises] Oxygen Delivery Method Oxygen Flow Rate Sepsis Recent Fever Within 48 Hours Sepsis New/Unexplained Change in Mental Status Sepsis Action Taken by Nursing Laboratory Data Attestation: I reviewed the patient's lab results. Result diagrams: 03/05/20 09:50 03/05/20 09:50 Lab Results 03/05/20 03/05/20 03/05/20 Range/Units 09:50 09:50 09:50 WBC 6.66 (4.8-10.8) K/uL RBC 3.38 L (4.2-5.4) M/uL Hgb 10.2 L (12.0-16.0) g/dL Hct 32.6 L (37-47) % MCV 96.4 (80-100) fL MCH 30.2 (25-34) pg MCHC 31.3 L (32-36) g/dL RDW Std Deviation 59.9 H (36.4-46.3) fL RDW Coeff of Daniel 17.2 H (11.5-14.5) % Plt Count 260 (130-400) K/uL MPV 9.6 (7.4-10.4) fL Immature Gran % (Auto) 0.3 % Neut % (Auto) 69.3 % Lymph % (Auto) 18.3 % Boyle % (Auto) 9.8 % Eos % (Auto) 1.4 % Baso % (Auto) 0.9 % Neut # (Auto) 4.62 (1.4-6.5) K/uL Lymph # (Auto) 1.22 (1.2-3.4) K/uL Boyle # (Auto) 0.65 H (0.11-0.59) K/uL Eos # (Auto) 0.09 (0-0.5) K/uL Baso # (Auto) 0.06 (0-0.2) K/uL Immature Gran # (Auto) 0.02 (0.00-0.02) K/uL PT 17.6 H (9.0-12.0) Seconds INR 1.7 H (0.9-1.1) APTT 39.6 H (21.0-31.0) Seconds PTT Ratio 1.4 Sodium 143 (136-145) mmol/L Potassium 4.6 (3.5-5.1) mmol/L Chloride 113 H (98-107) mmol/L Carbon Dioxide 21 (21-32) mmol/L Anion Gap 8.0 (3-11) BUN 31 H (7-18) mg/dl Creatinine 1.26 H (0.6-1.2) mg/dl Est Cr Clr Drug Dosing Not Reportable Est GFR ( Amer) 48.6 Est GFR (Non-Af Amer) 41.9 BUN/Creatinine Ratio 24.8 H (10-20) Glucose 128 H (70-99) mg/dl Calcium 9.6 (8.5-10.1) mg/dl Phosphorus 3.6 (2.5-4.9) mg/dl Magnesium 2.0 (1.8-2.4) mg/dl Total Bilirubin 0.9 (0.2-1) mg/dl AST 23 (15-37) U/L ALT 21 (12-78) U/L Alkaline Phosphatase 80 (45-117) U/L Troponin I 0.040 (0-0.045) ng/ml NT-Pro-B Natriuret Pep 8589 H (0-900) pg/ml Total Protein 7.6 (6.4-8.2) gm/dl Albumin 3.0 L (3.4-5.0) gm/dl Globulin 4.6 H (2.5-4.0) gm/dl Albumin/Globulin Ratio 0.7 L (0.9-2) Lipase 73 (73-393) U/L Procalcitonin Specimen Hemolysis COVID-19 Eval Order SARS-CoV-2, RNA, NAAT (NEGATIVE) 03/05/20 03/05/20 03/05/20 Range/Units 09:50 09:50 09:50 WBC (4.8-10.8) K/uL RBC (4.2-5.4) M/uL Hgb (12.0-16.0) g/dL Hct (37-47) % MCV (80-100) fL MCH (25-34) pg MCHC (32-36) g/dL RDW Std Deviation (36.4-46.3) fL RDW Coeff of Daniel (11.5-14.5) % Plt Count (130-400) K/uL MPV (7.4-10.4) fL Immature Gran % (Auto) % Neut % (Auto) % Lymph % (Auto) % Boyle % (Auto) % Eos % (Auto) % Baso % (Auto) % Neut # (Auto) (1.4-6.5) K/uL Lymph # (Auto) (1.2-3.4) K/uL Boyle # (Auto) (0.11-0.59) K/uL Eos # (Auto) (0-0.5) K/uL Baso # (Auto) (0-0.2) K/uL Immature Gran # (Auto) (0.00-0.02) K/uL PT (9.0-12.0) Seconds INR (0.9-1.1) APTT (21.0-31.0) Seconds PTT Ratio Sodium (136-145) mmol/L Potassium (3.5-5.1) mmol/L Chloride (98-107) mmol/L Carbon Dioxide (21-32) mmol/L Anion Gap (3-11) BUN (7-18) mg/dl Creatinine (0.6-1.2) mg/dl Est Cr Clr Drug Dosing Est GFR ( Amer) Est GFR (Non-Af Amer) BUN/Creatinine Ratio (10-20) Glucose (70-99) mg/dl Calcium (8.5-10.1) mg/dl Phosphorus (2.5-4.9) mg/dl Magnesium (1.8-2.4) mg/dl Total Bilirubin (0.2-1) mg/dl AST (15-37) U/L ALT (12-78) U/L Alkaline Phosphatase (45-117) U/L Troponin I (0-0.045) ng/ml NT-Pro-B Natriuret Pep (0-900) pg/ml Total Protein (6.4-8.2) gm/dl Albumin (3.4-5.0) gm/dl Globulin (2.5-4.0) gm/dl Albumin/Globulin Ratio (0.9-2) Lipase (73-393) U/L Procalcitonin Cancelled Specimen Hemolysis COVID-19 Eval Order Covid19 [email or web address] SARS-CoV-2, RNA, NAAT NEGATIVE (NEGATIVE) Administered Medications Apixaban (Apixaban 5 Mg Tablet) 5 mg PO BID AYAD Stop: 04/04/20 20:59 Last Admin: 03/05/20 20:41 Dose: 5 mg Documented by: [id number] Aspirin (Aspirin 81 Mg Ectab) 81 mg PO HS AYAD Stop: 04/04/20 20:59 Last Admin: 03/05/20 20:39 Dose: 81 mg Documented by: [id number] Atorvastatin Calcium (Atorvastatin 40 Mg Tab) 80 mg PO HS AYAD Stop: 04/04/20 20:59 Last Admin: 03/05/20 20:40 Dose: 80 mg Documented by: [id number] Carvedilol (Carvedilol 25 Mg Tab) 25 mg PO BIDM AYAD Stop: 04/04/20 16:59 Last Admin: 03/05/20 17:18 Dose: 25 mg Documented by: [id number] Ezetimibe (Ezetimibe 10 Mg Tablet) 10 mg PO HS AYAD Stop: 04/04/20 20:59 Last Admin: 03/05/20 20:41 Dose: 10 mg Documented by: [id number] Furosemide 20 mg/ Syringe 2 mls @ 4 mls/min IV [id number] AYAD Stop: 04/04/20 16:59 Last Admin: 03/05/20 17:19 Dose: 4 mls/min Documented by: [id number] Insulin Aspart (Insulin Aspart 100 Units/Ml 3 Ml Pen) 0 units SC ACHS AYAD Stop: 04/04/20 16:29 Last Admin: 03/05/20 20:39 Dose: Not Given Documented by: [id number] Cosigned by: [id number] Admin: 03/05/20 17:35 Dose: Not Given Documented by: [id number] Insulin Glargine (Insulin Glargine Solostar 100 Units/Ml 3 Ml Pen) 6 - 7 units SC BID AYAD Stop: 04/04/20 20:59 Last Admin: 03/05/20 20:39 Dose: 7 units Documented by: [id number] Cosigned by: [id number] Sacubitril/Valsartan (Sacubitril-Valsartan 24-26 Mg Tab) 1 tab PO BID AYAD Stop: 04/04/20 20:59 Last Admin: 03/05/20 20:41 Dose: 1 tab Documented by: [id number] Vitamin D (Cholecalciferol 1,000 Units 25 Mcg Tab) 2,000 units PO HS AYAD Stop: 04/04/20 20:59 Last Admin: 03/05/20 20:40 Dose: 2,000 units Documented by: [id number] Discontinued Medications Furosemide (Furosemide 40 Mg/4 Ml Vial) 20 mg IV NOW STA Stop: 03/05/20 10:37 Last Admin: 03/05/20 11:28 Dose: 20 mg Documented by: [id number] Discharge Plan Visit Data Chief Complaint: Shortness of Breath/Dyspnea Stated Complaint: SOB,HX OF CHF ED Provider: Tj Nunez Discharge Problem: Congestive heart failure, SOB (shortness of breath), Chronic kidney disease, stage III (moderate) Patient Disposition: Admitted As Inpatient Discharge Instructions Interventions: ED Discharge Assessment Last Done: 03/05/20 15:43 Discharge Problem: Congestive heart failure Qualifiers: Heart failure type: unspecified Heart failure chronicity: acute on chronic Qualified Code(s): I50.9 - Heart failure, unspecified Chronic kidney disease, stage III (moderate) Qualifiers: Chronic kidney disease stage 3 subtype: unspecified whether 3a or 3b Qualified Code(s): N18.30 - Chronic kidney disease, stage 3 unspecified
[2020-03-05 10:11] LABS: Basophils # (auto) 0.06 K/uL (0-0.2); Basophils % (auto) 0.9 %; Eosinophils # (auto) 0.09 K/uL (0-0.5); Eosinophils % (auto) 1.4 %; Hematocrit (blood only) 32.6 % (37-47); Hemoglobin 10.2 g/dL (12.0-16.0); Immature Granulocytes # (auto) 0.02 K/uL (0.00-0.02); Immature Granulocytes % (auto) 0.3 %; Lymphocytes # (auto) 1.22 K/uL (1.2-3.4); Lymphocytes % (auto) 18.3 %; Mean Corpuscular Hemoglobin 30.2 pg (25-34); Mean Corpuscular Hgb Conc 31.3 g/dL (32-36); Mean Corpuscular Volume 96.4 fL (80-100); Mean Platelet Volume 9.6 fL (7.4-10.4); Monocytes # (auto) 0.65 K/uL (0.11-0.59); Monocytes % (auto) 9.8 %; Neutrophils # (auto) 4.62 K/uL (1.4-6.5); Neutrophils % (auto) 69.3 %; Platelet Count 260 K/uL (130-400); RDW Coefficient of Variation 17.2 % (11.5-14.5); RDW Standard Deviation 59.9 fL (36.4-46.3); Red Blood Count 3.38 M/uL (4.2-5.4); White Blood Count 6.66 K/uL (4.8-10.8)
--- NOTE | 2020-03-05 10:19 | XRay Report ---
XR chest 1V portable HISTORY: 74 years-old Female Chest Pain . Atypical chest pain COMPARISON: Chest radiograph and CTA chest 12/30/2019 TECHNIQUE: Portable AP view of the chest. FINDINGS: Moderate enlargement of the cardiac silhouette. Prior median sternotomy with left subclavian pacer. B ilateral reticular opacities are noted without pneumothorax. Right greater left pleural effusions wit h bibasilar and right midlung opacities. Degenerative changes of the shoulders and spine. IMPRESSION: 1. Cardiomegaly with pulmonary edema. 2. Right greater left pleural effusions with bibasilar consolidation. ACT 112: Negative or not required by law. The above report was generated using voice recognition software. It may contain grammatical, syntax o r spelling errors. Electronically signed by: Abisai Prakash M.D. 03/05/2020 10:18 AM
[2020-03-05 10:23] LABS: INR 1.7 (0.9-1.1); Partial Thromboplastin Ratio 1.4; Partial Thromboplastin Time 39.6 Seconds (21.0-31.0); Prothrombin Time 17.6 Seconds (9.0-12.0)
[2020-03-05 10:31] LABS: Alanine Aminotransferase 21 U/L (12-78); Aspartate Aminotransferase 23 U/L (15-37); BUN Creatinine Ratio 24.8 (10-20); Blood Urea Nitrogen 31 mg/dl (7-18); Calcium 9.6 mg/dl (8.5-10.1); Carbon Dioxide 21 mmol/L (21-32); Chloride 113 mmol/L (98-107); Est GFR (African American) 48.6; Est GFR (Non-African American) 41.9; Glucose 128 mg/dl (70-99); Lipase 73 U/L (73-393); Potassium 4.6 mmol/L (3.5-5.1); Sodium 143 mmol/L (136-145)
[2020-03-05] MEDS ORDERED: FUROSEMIDE 40 MG/4 ML VIAL IV STA (10:36)
[2020-03-05 10:44] LABS: Albumin Globulin Ratio 0.7 (0.9-2); Alkaline Phosphatase 80 U/L (45-117); Bilirubin,Total 0.9 mg/dl (0.2-1); Globulin 4.6 gm/dl (2.5-4.0); NT Pro B Type Natriuretic Pept 8589 pg/ml (0-900); Phosphorus 3.6 mg/dl (2.5-4.9); Total Protein 7.6 gm/dl (6.4-8.2)
--- NOTE | 2020-03-05 13:29 | History & Physical Report ---
Date of Service March 05, 2020 Assessment & Plan (1) Acute on chronic systolic heart failure: Lasix 20 mg IV twice daily. Of note she became azotemic as an outpatient on 20 mg p.o. twice daily after last discharge. Strict I&Os, daily weights. Low-sodium, fluid restricted diet to 1200 mL. No need to repeat echocardiogram as performed recently in December. (2) Ischemic cardiomyopathy: Continue Entresto 2426 1 tab p.o. twice daily, carvedilol 25 mg p.o. twice daily (3) Asthma-COPD overlap syndrome: No acute exacerbation of this. Continue her regular inhalers. (4) HTN (hypertension): Continue her usual medications in addition to Lasix as above. (5) Hyperlipidemia: Continue atorvastatin 80 mg p.o. at bedtime (6) T1DM (type 1 diabetes mellitus): HbA1c with a.m. labs. Previously 6.1 in October. Continue insulin regimen from last hospitalization with Lantus 6-7 units twice daily and NovoLog sliding scale for correction and carb coverage. (7) Hypothyroidism: TSH 1.78 in June 2019. Continue levothyroxine 100 mcg p.o. daily (8) History of pulmonary embolism: Continue Eliquis 5 mg p.o. twice daily (9) Abnormal chest CT: Lung mass on prior CT. Discussed the previous multidisciplinary rounds and patient is not stenting of this. Following up with her web interface developer as an outpatient. Dr. Stephens made aware of admission however no pulmonology imaging or intervention required at current time. Admission and Anticipated Discharge Date Admission Date: March 05, 2020 History of Present Illness Chief Complaint: Shortness of breath Primary Care Provider: Samuel Abreu Janine Graham is a 74-year-old female with significant history of chronic congestive heart failure, ischemic cardiomyopathy, coronary artery disease, aortic stenosis (s/p bioprosthetic valve replacement), pacemaker s/p CHB, recently diagnosed pulmonary embolism and pulmonary mass who presents to the ER with progressive shortness of breath and generalized fatigue. She is followed by the heart failure clinic taking Lasix 20 mg daily as needed (usually every other day). She reports not taking it for the last 3 days as her weight has been stable and the patient has been feeling more fatigued. She reports her weight has been stable although noted to the ER physician her weight has increased by 10 pounds. Associated orthopnea. No PND, palpitations, claudication, presyncope or syncope. She denies any fevers, chills, worsening of her chronic cough, loss of taste or smell, myalgias, sore throat, diarrhea, nausea, vomiting, nasal congestion, chest or abdominal pain. She was exposed to COVID-19 2 weeks ago from her daughter who later tested positive. In the ER SARS-CoV-2 PCR negative. Chest x-ray concerning for pulmonary edema with right greater than left pleural effusions and bibasilar consolidation. She was referred to medicine for admission and ongoing management of congestive heart failure. Allergies Allergy/AdvReac Type Severity Reaction Status Date / Time acetaminophen [From Percocet] AdvReac Gastrointestinal Verified 03/05/20 10:18 Upset oxycodone [From Percocet] AdvReac Gastrointestinal Verified 03/05/20 10:18 Upset Home Medications Medication Instructions Recorded Confirmed Type atorvastatin 80 mg tablet 80 mg PO HS tab 09/29/18 03/05/20 History cholecalciferol (vitamin D3) 50 2,000 units PO HS cap 11/28/18 03/05/20 History mcg (2,000 unit) capsule OneTouch Ultra Blue Test Strip #300 ea NS 02/07/19 02/13/20 Rx megestrol 40 mg tablet 40 mg PO QAM tab 02/19/19 03/05/20 History glucagon HCl 1 mg/mL solution for See Rx Instructions IM .COMPLEX #1 02/22/19 03/05/20 Rx injection ea lancets #50 ea 02/22/19 02/13/20 History blood-glucose sensor #3 ea 06/28/19 02/13/20 History Novolog Flexpen U-100 Insulin 100 See Rx Instructions .ROUTE 08/21/19 03/05/20 Rx unit/mL (3 mL) subcutaneous .COMPLEX #30 ml NS calcium 600 mg-D3 800 unit-mag11 1 tab PO DAILY 11/02/19 03/05/20 History 50 ue-uvsa-pkrmvz-loyd-s.borat tablet insulin syringe-needle U-100 0.5 #10 ea 11/02/19 02/13/20 History mL 31 gauge x 5/16" pen needle, diabetic 30 gauge x #1 11/02/19 02/13/20 History 1/3" Lantus U-100 Insulin 7 unit SQ BID 12/30/19 03/05/20 History albuterol sulfate 2 inh INH QID 12/30/19 03/05/20 History aspirin 81 mg PO HS 12/30/19 03/05/20 History ezetimibe 10 mg PO HS 12/30/19 03/05/20 History levothyroxine 100 mcg PO DAILY@0600 12/30/19 03/05/20 History apixaban [Eliquis] 5 mg PO BID #60 tab 01/03/20 03/05/20 Rx carvedilol 25 mg tablet 25 mg PO BID #90 tab 01/25/20 03/05/20 Rx budesonide-formoterol HFA 80 2 inh INH BID PRN #10.2 g 01/30/20 03/05/20 Rx mcg-4.5 mcg/actuation aerosol inhaler sacubitril 24 mg-valsartan 26 mg 1 tab PO BID #180 tab 02/02/20 03/05/20 Rx tablet fluticasone propionate 50 1 spray INTNAS QAM #15.8 ml 02/27/20 03/05/20 Rx mcg/actuation nasal spray,suspension omeprazole 40 mg PO DAILY 03/05/20 03/05/20 History Past Med/Surg History Medical History (Updated 03/06/20 @ 00:37 by jT Nunez MD) Arthritis Chronic kidney disease, stage III (moderate) Cough REASON FOR INHALER Elevated troponin History of colon cancer History of hypertension History of rectal polyps Hx of cancer of endometrium Hyperlipidemia Hypothyroidism Lung tumor HX RT LOWER LUNG (SURGERY/CHEMO/RADIATION) Metastasis to lung Hematogenous Pacemaker [employer]. IMPLANTED 2013 FOR BIFASCICULAR BLOCK WITH TRANSIENT COMPLETE HEART BLOCK. LAST CHECKED 06/2019 [facility]. Pulmonary emboli T1DM (type 1 diabetes mellitus) DX 195 Vitamin D deficiency Surgical History Family history of reaction to anesthesia DAUGHTER-GETS SICK H/O aortic valve replacement 2013 AT [facility] History of appendectomy History of bilateral tubal ligation History of bronchoscopy 2006 History of cardiac cath History of cataract surgery RT/LEFT History of colon resection History of colonoscopy History of esophagogastroduodenoscopy (EGD) History of lung surgery RT LOWER LOBE REMOVAL History of open reduction and internal fixation (ORIF) procedure LEFT HIP History of placement of chest tube with chemical pleurodesis (non-chemotherapeutic) History of tooth extraction History of total hysterectomy S/P CABG (coronary artery bypass graft) 2014 AT [facility] Family History Mother Hypertension Brother Family history of diabetes mellitus Family history of esophageal cancer Other Asthma Cancer Diabetes Social History Smoking Status: Former smoker Tobacco Type: Cigarettes Age Started Using Tobacco: 16; Age Quit Using Tobacco: 56; Second Hand Exposure: No; Do You Dip or Chew Tobacco: No; Tobacco Cessation Education Requested by Patient: No Hx Alcohol Use: No Hx Substance Use: No Preferred Language: Faroese Communication Ability: Effective Wash Barrel Leader Required: No Beliefs That Will Affect Care: None Current Living Situation: Spouse Other Information That Helps Us Care for You: No Feels Safe at Home: Yes Safety Concerns: Feels Safe At This Time Assistive Devices: Oxygen - Continuous Review of Systems Review of Systems: All systems reviewed & are unremarkable except as noted in HPI & below Physical Exam Constitutional: well developed and well nourished; no acute distress Respiratory: + uses accessory muscles, + cough (Productive, chronic) and able to speak in complete sentences Auscultation: + diminished lung sounds (Bibasal) and + rhonchi (Posteriorly, clear anteriorly); no wheezes Cardiovascular: Rate/Rhythm: regular rate and regular rhythm Heart Sounds: + murmur (Systolic RUSB) Vessels: + JVD (Elevated to mid neck at 45 degrees) Extremities: normal capillary refill and + pedal edema (1+ bilateral equal pitting edema to knees, patient reports at baseline); no calf tenderness Gastrointestinal (Abdomen): Inspection/Auscultation: abdomen normal to inspection and normal bowel sounds Percussion/Palpation: abdomen soft; abdomen nontender, no guarding and abdomen not rigid Musculoskeletal: no cyanosis or clubbing, extremities motor strength 5/5 Skin: no rashes, warm and dry Neurologic: moves all extremities and awake; no focal motor deficits and not confused Speech / Cognition: normal speech Psychiatric: A+Ox3, euthymic affect Results & Data Results & Data ([facility]) Vital Signs (Past 12 Hours) Vital Signs Temp Pulse Pulse Pulse Resp Resp BP 03/05/20 12:22 94 H 32 H 03/05/20 12:00 87 90 18 03/05/20 11:50 87 22 03/05/20 11:40 87 26 H 03/05/20 11:30 90 30 H 03/05/20 11:20 89 26 H 03/05/20 11:10 91 H 32 H 03/05/20 11:00 92 H 29 H 03/05/20 10:50 89 23 03/05/20 10:40 92 H 24 03/05/20 10:30 93 H 26 H 03/05/20 10:20 95 H 29 H 03/05/20 10:10 98 H 34 H 03/05/20 10:01 95 H 95 H 28 H 03/05/20 09:57 95 H 25 H 142/66 H 03/05/20 09:36 98 H 30 H 03/05/20 09:15 36.5 C 101 H 20 133/63 BP Pulse Ox Pulse Ox 03/05/20 12:22 92 03/05/20 12:00 137/78 100 03/05/20 11:50 100 03/05/20 11:40 100 03/05/20 11:30 100 03/05/20 11:20 03/05/20 11:10 03/05/20 11:00 100 03/05/20 10:50 100 03/05/20 10:40 100 03/05/20 10:30 100 03/05/20 10:20 100 03/05/20 10:10 100 03/05/20 10:01 142/66 H 100 03/05/20 09:57 100 03/05/20 09:36 97 03/05/20 09:15 98 Diagnostic Findings XR chest 1V portable IMPRESSION: 1. Cardiomegaly with pulmonary edema. 2. Right greater left pleural effusions with bibasilar consolidation. Medications Administered ER medications given: Lasix 20 mg IV ECG Indication: SOB/dyspnea Rate (beats per minute): 99 Findings: + other (Atrial sensed ventricular paced rhythm) Comparison ECG Date: from (December 30, 2019) Change: no significant change Code Status & VTE Plan Code Status All treatment outside of a cardiac arrest VTE Prophylaxis Plan VTE Prophylaxis will be ordered: Yes PG Care Time/CCT Total # of Minutes Spent Total Time Spent with Patient: Total time spent is greater than 50% in coordination of care (as documented) at patient's floor/unit and/or counseling patient: Coding Level of Care Code 24229 OBS Care - Level 3 Diagnoses Acute on chronic systolic heart failure I50.23 Ischemic cardiomyopathy I25.5 Asthma-COPD overlap syndrome J44.9 HTN (hypertension) I10 Hyperlipidemia E78.5 T1DM (type 1 diabetes mellitus) E10.9 Hypothyroidism E03.9 History of pulmonary embolism Z86.[address] R93.89
[2020-03-05] MEDS ORDERED: GLUCOSE 40% GEL 15 GM TUBE PO PRN (16:00)
[2020-03-05] MEDS ORDERED: GLUCOSE 10 TABS/TUBE PO PRN (16:00)
[2020-03-05] MEDS ORDERED: CARBOHYDRATES FOR HYPOGLYCEMIA PO PRN (16:00)
[2020-03-05] MEDS ORDERED: DEXTROSE 50% 50 ML SYRINGE IV PRN (16:00)
[2020-03-05] MEDS ORDERED: ONDANSETRON INJ 2 MG/ML 2 ML VIAL IV PRN (16:00)
[2020-03-05] MEDS ORDERED: ALUMINUM/MAGNESIUM SUSP 30 ML UDC PO PRN (16:00)
[2020-03-05] MEDS ORDERED: POLYETHYLENE (MIRALAX) 17 GM PACK PO PRN (16:00)
[2020-03-05] MEDS ORDERED: GLUCAGON FOR INJ 1 MG VIAL SQ PRN (16:00)
[2020-03-05] MEDS ORDERED: FUROSEMIDE 40 MG/4 ML VIAL IV SCH (17:00)
[2020-03-05] MEDS: carvediloL 25 MG TAB PO SCH (17:18)
[2020-03-05] MEDS: FUROSEMIDE 20 MG in SYRINGE 0 ML IV SCH (17:19)
[2020-03-05] MEDS: INSULIN ASPART 100 UNITS/ML 3 ML PEN SC SCH ×2 (17:35→20:39)
[2020-03-05] MEDS: ASPIRIN 81 MG ECTAB PO SCH (20:39)
[2020-03-05] MEDS: INSULIN GLARGINE SOLOSTAR 100 UNITS/ML 3 ML PEN SC SCH (20:39)
[2020-03-05] MEDS: CHOLECALCIFEROL 1,000 UNITS 25 MCG TAB PO SCH (20:40)
[2020-03-05] MEDS: ATORVASTATIN 40 MG TAB PO SCH (20:40)
[2020-03-05] MEDS: EZETIMIBE 10 MG TABLET PO SCH (20:41)
[2020-03-05] MEDS: APIXABAN 5 MG TABLET PO SCH (20:41)
[2020-03-05] MEDS: SACUBITRIL-VALSARTAN 24-26 MG TAB PO SCH (20:41)
[2020-03-06] MEDS: LEVOTHYROXINE SODIUM 100 MCG TABLET PO SCH (06:12)
--- NOTE | 2020-03-06 06:42 | Electrocardiogram Report ---
Test Reason : Blood Pressure : / mmHG Vent. Rate : 099 BPM Atrial Rate : 099 BPM P-R Int : 186 ms QRS Dur : 176 ms QT Int : 414 ms P-R-T Axes : 030 -60 111 degrees QTc Int : 531 ms Atrial-sensed ventricular-paced rhythm Abnormal ECG When compared with ECG of 30-DEC-2019 08:48, Vent. rate has decreased BY 5 BPM Confirmed by Valentin Ramos ([id number]) on 03/06/2020 6:41:50 AM Referred By: REFERRED SELF Confirmed By:Valentin Ramos
[2020-03-06 07:11] LABS: Creatinine Clr Calc Pharmacy 36.1 ml/min; Est GFR (African American) 52.1; Est GFR (Non-African American) 44.9; Potassium 4.1 mmol/L (3.5-5.1)
[2020-03-06 07:23] LABS: Estimated Average Glucose 131 mg/dl; Hemoglobin A1C 6.2 % (4.5-5.6)
[2020-03-06] MEDS: SACUBITRIL-VALSARTAN 24-26 MG TAB PO SCH ×2 (08:19→20:47)
[2020-03-06] MEDS: CALCIUM 600MG + VIT D 400 IU TAB PO SCH (08:19)
[2020-03-06] MEDS: INSULIN GLARGINE SOLOSTAR 100 UNITS/ML 3 ML PEN SC SCH ×2 (08:19→20:44)
[2020-03-06] MEDS: carvediloL 25 MG TAB PO SCH ×2 (08:19→17:09)
[2020-03-06] MEDS: MEGESTROL ACETATE 40 MG TAB PO SCH (08:19)
[2020-03-06] MEDS: PANTOprazole 40 MG TAB PO SCH (08:19)
[2020-03-06] MEDS: FLUTICASONE PROPIONATE NA SPR 16 GM BTL NAE SCH (08:20)
[2020-03-06] MEDS: FLUTICASONE/VILANTEROL 100/25MCG 14 PUFFS/INHALER INH SCH (08:20)
[2020-03-06] MEDS: INSULIN ASPART 100 UNITS/ML 3 ML PEN SC SCH ×4 (08:21→20:45)
[2020-03-06] MEDS: FUROSEMIDE 20 MG in SYRINGE 0 ML IV SCH ×2 (09:56→17:09)
[2020-03-06] MEDS: APIXABAN 5 MG TABLET PO SCH ×2 (09:56→20:47)
--- NOTE | 2020-03-06 15:55 | Heart Failure Progress Note ---
Date of Service March 06, 2020 Assessment & Plan (1) Acute on chronic systolic heart failure: (2) Ischemic cardiomyopathy: 1. Chronic systolic congestive heart failure: NYHA Class II. Patient appears near euvolemic and well compensated on exam today. Her symptoms are improving however she was still requiring oxygen this morning. She is now on room air. Kidney function has improved. Continue Lasix 20 mg IV BID for today. Anticipate transition back to PO diuretics tomorrow, Lasix 20 mg daily. Dry weight 143 lb. Hold for weight < 141 lb. Plan to continue close monitoring. Recommend daily standing weights. Notify HF program of 2+ lb weight gain overnight or 5+ lb in 1 week. Recommend low sodium diet, less than 2,000 mg daily. 2. Cardiomyopathy: Ischemic. Long standing. Her ejection fraction in July 2018 was about 45% which may have been in part due to ventricular pacing. Ejection fraction is now 25-30%. This could be due to progression of coronary disease however she has not had symptoms to suggest that (however in 2013 when she had her bypass surgery she also does not recall having chest pain). Medical therapy has been recommended. Continue to optimize medical therapy for her cardiomyopathy. Continue Carvedilol to 25 mg BID. Could consider titration of Entresto to 49/51 mg BID on discharge now that kidney function has improved. Will need BMP in 7-10 days if so. Plan to repeat echocardiogram after 2-3 months of target therapy. Consider upgrade to an biventricular ICD if not improved. Suspect the most likely cause of her progressive cardiomyopathy is dyssynchrony from RV pacing. Disposition: Continue close follow up with the heart failure program. Plan on close follow up within 7 days. Follow up with Dr. Barnes in 3 months. Admission and Anticipated Discharge Date Admission Date: March 05, 2020 Subjective Ms. Graham is a 74 year old female with history of COPD/asthma, PE, lung CA, systolic congestive heart failure, cardiomyopathy, DM, HTN, and s/p pacemaker. Dr. Barnes is her primary guitar repairer. Recent cardiac studies: 1. 12/31/19 Echo: LV systolic function moderately to severely reduced, EF 25- 30%. Moderate to severe global hypokinesis. Prosthetic aortic valve not well visualized. Normal gradient. Moderate MR. Mild TR. She was hospitalized from 12/30/19 through 01/03/20 for pulmonary embolism and acute on chronic CHF. She presented with acute onset of dyspnea. In the ED, CT was positive for PE. She also had evidence of pulmonary edema and small pleural effusions. BNP elevated 8760. She was treated with heparin and Lasix in the ED. Echocardiogram demonstrates decline in her LV function. She was converted from Metoprolol to Carvedilol and from Losartan to Entresto. Nuclear stress test performed to rule out ischemia. Medical therapy felt to be appropriate without cardiac catheterization. She was not discharged with diuretic. Patient was initially evaluated on 01/10/20 with the heart failure program. She was euvolemic. Symptoms were improving. She had not been requiring diuretic therapy. Lasix 20 mg PRN was prescribed. Carvedilol was increased to 18.75 mg BID. She continued Entresto. She has since been followed routinely for titration of GDMT. She was most recently evaluated on 02/13/20. She was euvolemic and well compensated. She continued Lasix 20 mg PRN only. Dry weight was 143 lb. She was slightly azotemic therefore Entresto was not titrated. She presented to the ED yesterday with shortness of breath x 1 week. There was concern for COVID exposure however she was negative. She did not attempt to increase her Lasix at home. She states her weight did go up according to her home scale. She denies worsening edema or orthopnea. CXR consistent with pulmo nary edema and pleural effusions. She was treated with IV Lasix in the ED. Patient is well known to the heart failure program and is followed closely as an outpatient. She reports she's feeling significantly improved today. She was still requiring supplemental O2 at the time of my exam. She did sleep with her head slightly elevated but denied PND. She denies lower extremity edema. She denies chest pain, lightheadedness, or palpitations. She's had Lasix 20 mg IV x 2. She is negative 1 L this admission. Weight is down to 145 lb (bed scale). SocHx: She lives with her in [place] in a [facility] home. She's retired. She denies tobacco or alcohol use. She quit smoking 15 years ago. FamHx: Brother- cardiomegaly. Denies history of CAD, CVA. Physical Exam Physical Exam: Constitutional: Alert, oriented, in no acute distress HEENT: Head is atraumatic and normocephalic. EOMs intact. Sclera anicteric. Face is symmetric. No perioral cyanosis. Mucous membranes moist. Neck: Supple, no JVD Pulmonary: Normal respiratory effort, mild bibasilar crackles, faint inspiratory wheezing. Cardiac: Regular rate and rhythm. Slightly tachycardic. Normal S1 and S2, no gallops, no rubs, no murmurs Extremities: 2+ radial pulses bilaterally. 2+ posterior tibialis pulses bilaterally. No pitting edema. No cyanosis or clubbing. Abdomen: Normal bowel sounds, soft, non-tender, no abdominal mass palpated Skin: Normal skin color, turgor, and pigmentation, no rash, no skin lesions Neurological: Patient is awake, alert, and oriented. Pleasant and cooperative. Answers questions appropriately. Speech is clear. Normal movement in all 4 extremities. Results & Data ([facility]) Vital Signs (Past 12 Hours) Vital Signs Temp Pulse Resp BP Pulse Ox 03/06/20 11:34 98.6 F 84 20 108/64 92 03/06/20 07:02 98.4 F 90 18 120/69 92 03/06/20 04:05 98.1 F 90 20 96/49 L 98 PG Care Time/CCT Total # of Minutes Spent Total Time Spent with Patient: Total time spent is greater than 50% in coordination of care (as documented) at patient's floor/unit and/or counseling patient: Heart Failure Data/Metrics Heart Failure Type: Systolic Ejection Fraction: 25-30% NYHA classification: II: Sx w/ usual activity Risk Stratification: B Dry Weight: 145 lb Weight: 145 lb Pacemaker: Yes Diabetes Mellitus: Yes Evidenced Based Beta Brie Therapy Beta Brie Therapy: Yes Beta Brie Name: Carvedilol Beta Brie Target Therapy: Target Therapy [facility]/ARB/ARNI Therapy [facility]ENCE/ARB Therapy: Yes (Entresto 24/26 mg BID) [place]/ARB/ARNI Target Therapy: Not at Target Therapy Coding Level of Care Code 30631 Inpt Consult Level 3 Diagnoses Acute on chronic systolic heart failure I50.23 Ischemic cardiomyopathy I25.5
--- NOTE | 2020-03-06 15:56 | Hospitalist Progress Note ---
Date of Service March 06, 2020 Assessment & Plan (1) Acute on chronic systolic heart failure: Continue Lasix 20 mg IV twice daily. Of note she became azotemic as an outpatient on 20 mg p.o. twice daily after last discharge. Strict I&Os, daily weights - - 800 mls Low-sodium, fluid restricted diet to 1200 mL. No need to repeat echocardiogram as performed recently in December. BNP 8589 on admission (2) Ischemic cardiomyopathy: Continue Entresto 2426 1 tab p.o. twice daily, carvedilol 25 mg p.o. twice daily (3) Asthma-COPD overlap syndrome: No acute exacerbation of this. Continue her regular inhalers. (4) HTN (hypertension): Continue her usual medications in addition to Lasix as above. (5) Hyperlipidemia: Continue atorvastatin 80 mg p.o. at bedtime (6) T1DM (type 1 diabetes mellitus): HbA1c with 6.2% Continue insulin regimen from last hospitalization with Lantus 6-7 units twice daily and NovoLog sliding scale for correction and carb coverage. BSGs have been stable (7) Hypothyroidism: TSH 1.78 in June 2019. Continue levothyroxine 100 mcg p.o. daily (8) History of pulmonary embolism: Continue Eliquis 5 mg p.o. twice daily (9) Abnormal chest CT: Lung mass on prior CT. Discussed the previous multidisciplinary rounds and patient is not stenting of this. Following up with her air analysis technician as an outpatient. Dr. Stephens made aware of admission however no pulmonology imaging or intervention required at current time. (10) Elevated INR: Unclear etiology, nutritional?. Was also elevated in December at 1.6. Now 1.7. She did not have any evidence of metastasis on her CT a/p in June. Other liver function tests wnl. Will recheck am (11) DVT prophylaxis: apixaban Dispo: Likely home tomorrow if maintained of O2 overnight Admission and Anticipated Discharge Date Admission Date: March 05, 2020 Subjective Ms. Graham is feeling better today, less sob. Review of Systems Constitutional: no fever, no chills and no body aches Respiratory: no cough and no dyspnea Cardiovascular: no chest pain and no palpitations Gastrointestinal: no abdominal pain, no nausea and no vomiting Genitourinary: no dysuria and no urinary hesitancy Musculoskeletal: no back pain and no joint pain Integumentary: no rash Physical Exam Physical Exam: General: no distress Eyes: normal inspection, PERLL Respiratory: chest non tender, clear to auscultation, normal breath sounds, no respiratory distress, no accessory muscle use Cardiac: regular rate and rhythm, no rub or gallop, no murmur, no edema, no jvd GI/: active bowel sounds, no abd pain or tenderness, soft, non distended Extremities: normal range of motion, normal strength, non tender Neuro/Psych: alert and oriented x 3, normal mood and affect Skin: normal color, dry Results & Data Results & Data ([facility]) Vital Signs (Past 12 Hours) Vital Signs Temp Pulse Resp BP Pulse Ox 03/06/20 11:34 37.0 C 84 20 108/64 92 03/06/20 07:02 36.9 C 90 18 120/69 92 03/06/20 04:05 36.7 C 90 20 96/49 L 98 PG Care Time/CCT Total # of Minutes Spent Total Time Spent with Patient: Total time spent is greater than 50% in coordination of care (as documented) at patient's floor/unit and/or counseling patient: Coding Level of Care Code 06161 Subseq Hosp Care Lvl 2 Diagnoses Acute on chronic systolic heart failure I50.23 Ischemic cardiomyopathy I25.5 Asthma-COPD overlap syndrome J44.9 HTN (hypertension) I10 Hyperlipidemia E78.5 T1DM (type 1 diabetes mellitus) E10.9 Hypothyroidism E03.9 History of pulmonary embolism Z86.[address] R93.89 Elevated INR R79.1 DVT prophylaxis Z29.9
[2020-03-06] MEDS: ATORVASTATIN 40 MG TAB PO SCH (20:46)
[2020-03-06] MEDS: EZETIMIBE 10 MG TABLET PO SCH (20:46)
[2020-03-06] MEDS: CHOLECALCIFEROL 1,000 UNITS 25 MCG TAB PO SCH (20:46)
[2020-03-06] MEDS: ASPIRIN 81 MG ECTAB PO SCH (20:48)
[2020-03-07] MEDS: LEVOTHYROXINE SODIUM 100 MCG TABLET PO SCH (05:48)
[2020-03-07 07:23] LABS: Basophils # (auto) 0.06 K/uL (0-0.2); Basophils % (auto) 1.1 %; Eosinophils # (auto) 0.08 K/uL (0-0.5); Eosinophils % (auto) 1.5 %; Hematocrit (blood only) 29.5 % (37-47); Hemoglobin 9.4 g/dL (12.0-16.0); Immature Granulocytes # (auto) 0.02 K/uL (0.00-0.02); Immature Granulocytes % (auto) 0.4 %; Lymphocytes # (auto) 1.27 K/uL (1.2-3.4); Lymphocytes % (auto) 23.8 %; Mean Corpuscular Hemoglobin 30.5 pg (25-34); Mean Corpuscular Hgb Conc 31.9 g/dL (32-36); Mean Corpuscular Volume 95.8 fL (80-100); Mean Platelet Volume 9.1 fL (7.4-10.4); Monocytes # (auto) 0.73 K/uL (0.11-0.59); Monocytes % (auto) 13.7 %; Neutrophils # (auto) 3.18 K/uL (1.4-6.5); Neutrophils % (auto) 59.5 %; Platelet Count 211 K/uL (130-400); RDW Coefficient of Variation 17.2 % (11.5-14.5); RDW Standard Deviation 58.5 fL (36.4-46.3); Red Blood Count 3.08 M/uL (4.2-5.4); White Blood Count 5.34 K/uL (4.8-10.8)
[2020-03-07 07:31] LABS: Prothrombin Time 19.9 Seconds (9.0-12.0)
[2020-03-07 07:50] LABS: BUN Creatinine Ratio 24.6 (10-20); Creatinine Clr Calc Pharmacy 33.2 ml/min; Est GFR (African American) 47.7; Est GFR (Non-African American) 41.1; Potassium 4.2 mmol/L (3.5-5.1)
[2020-03-07] MEDS: APIXABAN 5 MG TABLET PO SCH (08:08)
[2020-03-07] MEDS: PANTOprazole 40 MG TAB PO SCH (08:08)
[2020-03-07] MEDS: SACUBITRIL-VALSARTAN 24-26 MG TAB PO SCH (08:08)
[2020-03-07] MEDS: carvediloL 25 MG TAB PO SCH (08:08)
[2020-03-07] MEDS: CALCIUM 600MG + VIT D 400 IU TAB PO SCH (08:08)
[2020-03-07] MEDS: MEGESTROL ACETATE 40 MG TAB PO SCH (08:08)
[2020-03-07] MEDS: FLUTICASONE PROPIONATE NA SPR 16 GM BTL NAE SCH (08:09)
[2020-03-07] MEDS: FUROSEMIDE 20 MG in SYRINGE 0 ML IV SCH (08:09)
[2020-03-07] MEDS: INSULIN GLARGINE SOLOSTAR 100 UNITS/ML 3 ML PEN SC SCH (08:09)
[2020-03-07] MEDS: INSULIN ASPART 100 UNITS/ML 3 ML PEN SC SCH ×2 (08:09→12:34)
[2020-03-07] MEDS: FLUTICASONE/VILANTEROL 100/25MCG 14 PUFFS/INHALER INH SCH (08:09)
[2020-03-07] MEDS ORDERED: PHYTONADIONE 5 MG in SODIUM CHLORIDE 0.9% 50 ML IV ONE (08:15)
--- NOTE | 2020-03-07 11:01 | Heart Failure Progress Note ---
Date of Service March 07, 2020 Assessment & Plan (1) Acute on chronic systolic heart failure: (2) Ischemic cardiomyopathy: 1. Chronic systolic congestive heart failure: NYHA Class II. Patient appears euvolemic and well compensated on exam today. Her symptoms have improved and her breathing is at baseline. Kidney function has improved. She is likely stable for discharge today. Recommend Lasix 20 mg po daily on discharge. Dry weight 143 lb. Hold for weight < 140 lb. Plan to continue close monitoring. Recommend daily standing weights. Notify HF program of 2+ lb weight gain overnight or 5+ lb in 1 week. Recommend low sodium diet, less than 2,000 mg daily. 2. Cardiomyopathy: Ischemic. Long standing. Her ejection fraction in July 2018 was about 45% which may have been in part due to ventricular pacing. Ejection fraction is now 25-30%. This could be due to progression of coronary disease however she has not had symptoms to suggest that (however in 2013 when she had her bypass surgery she also does not recall having chest pain). Medical therapy has been recommended. Continue to optimize medical therapy for her cardiomyopathy. Continue Carvedilol to 25 mg BID. Could consider titration of Entresto to 49/51 mg BID on discharge now that kidney function has improved. Will need BMP in 7-10 days if so. Plan to repeat echocardiogram after 2-3 months of target therapy. Consider upgrade to an biventricular ICD if not improved. Suspect the most likely cause of her progressive cardiomyopathy is dyssynchrony from RV pacing. Disposition: Continue close follow up with the heart failure program. Plan on close follow up- 03/14 at 3:00 pm. She will need to have labs draw 1-2 days before her appt. Follow up with Dr. Barnes in 3 months. Admission and Anticipated Discharge Date Admission Date: March 05, 2020 Subjective Ms. Graham is a 74 year old female with history of COPD/asthma, PE, lung CA, systolic congestive heart failure, cardiomyopathy, DM, HTN, and s/p pacemaker. Dr. Barnes is her primary tool supervisor. Recent cardiac studies: 1. 12/31/19 Echo: LV systolic function moderately to severely reduced, EF 25-3 0%. Moderate to severe global hypokinesis. Prosthetic aortic valve not well visualized. Normal gradient. Moderate MR. Mild TR. She reports she's feeling significantly improved today, essentially at baseline. She has not required supplemental oxygen since yesterday. She did sleep with her head slightly elevated but denied PND. She denies lower extremity edema. She denies chest pain, lightheadedness, or palpitations. She's had Lasix 20 mg IV x 4 doses. She is negative 500 ml this admission. Weight is down to 142 lb which is consistent with her typical dry weight. SocHx: She lives with her in [place] in [facility]. She's retired. She denies tobacco or alcohol use. She quit smoking 15 years ago. FamHx: Brother- cardiomegaly. Denies history of CAD, CVA. Physical Exam Physical Exam: Constitutional: Alert, oriented, in no acute distress HEENT: Head is atraumatic and normocephalic. EOMs intact. Sclera anicteric. Face is symmetric. No perioral cyanosis. Mucous membranes moist. Neck: Supple, no JVD, + HJR Pulmonary: Normal respiratory effort, lungs clear to auscultation today. Cardiac: Regular rate and rhythm. Slightly tachycardic. Normal S1 and S2, no gallops, no rubs, no murmurs Extremities: 2+ radial pulses bilaterally. 2+ posterior tibialis pulses bilaterally. No pitting edema. No cyanosis or clubbing. Abdomen: Normal bowel sounds, soft, non-tender, no abdominal mass palpated Skin: Normal skin color, turgor, and pigmentation, no rash, no skin lesions Neurological: Patient is awake, alert, and oriented. Pleasant and cooperative. Answers questions appropriately. Speech is clear. Normal movement in all 4 extremities. Results & Data ([facility]) Vital Signs (Past 12 Hours) Vital Signs Temp Pulse Pulse Resp BP Pulse Ox 03/07/20 10:32 98.6 F 84 104/44 L 95 03/07/20 10:00 98.4 F 87 100/52 L 95 03/07/20 07:13 98.4 F 84 18 110/57 L 96 03/07/20 04:00 98.4 F 80 18 100/59 L 96 03/07/20 00:12 95/57 L 03/06/20 23:00 98.6 F 82 18 87/50 L 94 03/06/20 22:54 89 PG Care Time/CCT Total # of Minutes Spent Total Time Spent with Patient: Total time spent is greater than 50% in coordination of care (as documented) at patient's floor/unit and/or counseling patient: Coding Level of Care Code 39874 Subseq Hosp Care Lvl 3 Diagnoses Acute on chronic systolic heart failure I50.23 Ischemic cardiomyopathy I25.5
[2020-03-07 14:04] LABS: INR 1.9 (0.9-1.1); Prothrombin Time 19.8 Seconds (9.0-12.0)
--- NOTE | 2020-03-07 14:54 | Discharge Summary ---
Date of Service March 07, 2020 Admission HPI Per Admitting Provider Janine Graham is a 74-year-old female with significant history of chronic congestive heart failure, ischemic cardiomyopathy, coronary artery disease, aortic stenosis (s/p bioprosthetic valve replacement), pacemaker s/p CHB, recently diagnosed pulmonary embolism and pulmonary mass who presents to the ER with progressive shortness of breath and generalized fatigue. She is followed by the heart failure clinic taking Lasix 20 mg daily as needed (usually every other day). She reports not taking it for the last 3 days as her weight has been stable and the patient has been feeling more fatigued. She reports her weight has been stable although noted to the ER physician her weight has increased by 10 pounds. Associated orthopnea. No PND, palpitations, claudication, presyncope or syncope. She denies any fevers, chills, worsening of her chronic cough, loss of taste or smell, myalgias, sore throat, diarrhea, nausea, vomiting, nasal congestion, chest or abdominal pain. She was exposed to COVID-19 2 weeks ago from her daughter who later tested positive. In the ER SARS-CoV-2 PCR negative. Chest x-ray concerning for pulmonary edema with right greater than left pleural effusions and bibasilar consolidation. She was referred to medicine for admission and ongoing management of congestive heart failure. Principal Diagnosis CHF exacerbation Discharge Exam Constitutional WD/WN, vitals as above Respiratory normal respiratory effort, lungs clear to auscultation Cardiovascular RRR, no murmur, no edema Gastrointestinal (Abdomen) Inspection/Auscultation: + abdomen abnormal to inspection, abdomen not distended and no abdominal edema Musculoskeletal no cyanosis or clubbing, extremities motor strength 5/5 Skin no rashes, warm and dry Neurologic moves all extremities and awake Psychiatric A+Ox3, euthymic affect Discharge Data Allergies Allergy/AdvReac Type Severity Reaction Status Date / Time acetaminophen [From Percocet] AdvReac Gastrointestinal Verified 03/05/20 10:18 Upset oxycodone [From Percocet] AdvReac Gastrointestinal Verified 03/05/20 10:18 Upset Consultations 03/05/20 12:43 ED Decision to Admit Stat Hospital Course (1) Acute on chronic systolic heart failure: Given Lasix 20 mg IV twice daily. Will dc with furosemide 20 mg daily Strict I&Os, daily weights Low-sodium, fluid restricted diet to 1200 mL. No need to repeat echocardiogram as performed recently in December. BNP 8589 on admission, decreased to 5,281 today (2) Ischemic cardiomyopathy: Continue Entresto 2426 1 tab p.o. twice daily, carvedilol 25 mg p.o. twice daily (3) Asthma-COPD overlap syndrome: No acute exacerbation of this. Continue her regular inhalers. (4) HTN (hypertension): Continue her usual medications in addition to Lasix as above. (5) Hyperlipidemia: Continue atorvastatin 80 mg p.o. at bedtime (6) T1DM (type 1 diabetes mellitus): HbA1c with 6.2% Continue insulin regimen from last hospitalization with Lantus 6-7 units twice daily and NovoLog sliding scale for correction and carb coverage. BSGs have been stable (7) Hypothyroidism: TSH 1.78 in June 2019. Continue levothyroxine 100 mcg p.o. daily (8) History of pulmonary embolism: Continue Eliquis 5 mg p.o. twice daily (9) Abnormal chest CT: Lung mass on prior CT. Discussed the previous multidisciplinary rounds and patient is not stenting of this. Following up with her jewelry bench worker as an outpatient. Dr. Stephens made aware of admission however no pulmonology imaging or intervention required at current time. (10) Elevated INR: Unclear etiology, nutritional?. Was also elevated in December at 1.6. 2.0 this morning. Other liver function tests wnl. Given 5 mg IV vitamin K Will have patient recheck INR tomorrow Encouraged increase in consumption of leafy greens/foods higher in vitamin K (11) Anemia: Hgb was 9.4 this morning. She denies any dark or bloody stools, no obvious s/s of bleeding Will have patient recheck cbc tomorrow and follow with her pcp (12) DVT prophylaxis: apixaban Total Time Total Time Spent Total Time Spent (In Minutes): greater than 30 minutes Discharge Plan Discharge Items Patient Disposition: Home - Self-Care Reason For Visit: ACUTE ON CHRONIC CHF Discharge Diagnosis: Congestive Heart Failure Activity: Resume your previous activity Non-emergency contact: Primary Care Provider and General Repairer Call non-emergency contact if: you have any medication questions Follow-up/Referrals: Samuel Abreu [Primary Care Provider] - 03/13/20 12:50 pm (follow up in one week. Your appointment is with Dr Samuel Meredith at the [facility] office beside [address]. The addres is [address] [facility]. If you need to change this appointment or have anyl questions please call [phone].) Shannan Ojeda PA-C [Physician Library Helper] - 03/14/20 3:00 pm (Congestive Heart Failure Program Appointment Information Early follow up is essential to managing your heart failure. An appointment has been scheduled for you with the [facility] within 7 days of discharge. Anticipate this visit to be 30-60 minutes long. Please expect a charge machine operator phone call from one of our nurses approximately 48 hours from discharge. They will also be placing an order for lab work to be completed 1-2 days prior to your heart failure follow up appointment. Please be sure to have this done so we can go over the results when you come in. Office Location The cardiology office building is located in front of the hospital at [address] Bring the following with you to your follow-up doctor appointments: Please bring your daily weight log any discharge paperwork all of your medication bottles with you to this visit. ) Diet: Low Sodium (2gm) Addtl Attending Provider Instructions: (1) Acute on chronic systolic heart failure: You will go home with furosemide 20 mg daily. Please follow the instructions below for CHF care and follow up with Shannan Ojeda (2) Anemia Your blood count was a little lower than is usual for you. I would like you to have a repeat check tomorrow. Results will go to Dr. Abreu (3) Elevated INR (INR is a test of clotting time) Its unclear why this is elevated but it may be due to nutritional intake. Try to increase the amount of foods that have vitamin K you are eating such as leafy greens, brussel sprouts, broccoli, cauliflower, and cabbage. You should not take a vitamin K supplement unless instructed to do so by your primary care provider. Addtl Automotive Service Assistant Provider Instructions: Call your Primary Care doctor if any of the following symptoms or problems start or get worse: * Shortness of breath or difficulty breathing * Wake up at night short of breath * Chest pain * Cough * Swelling of your hands, feet, or legs * More fatigued or tired with your normal activity * Palpitations - sudden fast heart beats WEIGHT * Weigh yourself every morning after using the bathroom. * Use the same scale. * Wear the same amount of clothing. * Write your weight down on a chart. * Call your Primary Care doctor if you gain more than 2-3 pounds in 1-2 days. MEDICATIONS * Use this discharge instruction sheet for medication instructions. * Take your medications at the time your doctor ordered. * Do not skip a dose of your medicines. * If you miss a dose of medicine, take it as soon as possible, but DO NOT DOUBLE A DOSE. * Read your medicine information when you get home. * Know all of the side effects of your medicine. If in doubt, ask your pharmacist * Call your Primary Care doctor's office if you have any side effects. * Be sure all of your doctors know what medicine and herbs you take (including cold, flu, and herbal medicine). Take the following with you to your follow-up doctor appointments: * Weight Chart * Medication List * List of questions Do not drink excessive alcohol, beer or wine. Pending Studies at Discharge: No Stand-Alone Forms: [facility] Sm[facility] Cessation Medications and DC Order Prescriptions: New furosemide 20 mg tablet 20 mg PO DAILY Qty: 30 RF: 0 Continued (DME) OneTouch Ultra Blue Test Strip strip See Dose Instructions .ROUTE .MEDSUPPLY Qty: 300 RF: 3 insulin aspart U-100 [Novolog Flexpen U-100 Insulin] 100 unit/mL (3 mL) insulin pen See Rx Instructions .ROUTE .COMPLEX Qty: 30 RF: 3 budesonide-formoterol [Symbicort] 80-4.5 mcg/actuation HFA aerosol inhaler 2 inh INH BID PRN (Reason: Shortness Of Breath Or Wheezing) Qty: 10.2 RF: 4 Entresto 24-26 mg tablet 1 tab PO BID Qty: 180 RF: 3 fluticasone propionate [Allergy Relief (fluticasone)] 50 mcg/actuation spray,suspension 1 spray INTNAS QAM Qty: 15.8 RF: 1 Caltrate 600-D Plus Minerals 600 mg calcium- 800 unit-50 mg tablet 1 tab PO DAILY RF: 0 (DME) DexSmithfield Case G6 Sensor Device See Rx Instructions .ROUTE .MEDSUPPLY Qty: 3 RF: 0 carvedilol 25 mg tablet 25 mg PO BID Qty: 90 RF: 3 cholecalciferol (vitamin D3) 2,000 unit capsule 2,000 units PO HS RF: 0 atorvastatin 80 mg tablet 80 mg PO HS RF: 0 megestrol 40 mg tablet 40 mg PO QAM RF: 0 (DME) lancets [OneTouch UltraSoft Lancets] Misc See Dose Instructions .ROUTE .MEDSUPPLY Qty: 50 RF: 0 (DME) insulin syringe-needle U-100 [BD Insulin Syringe Ultra-Fine] 0.5 mL 31 gauge x 5/16" syringe See Rx Instructions .ROUTE .MEDSUPPLY Qty: 10 RF: 0 (DME) pen needle, diabetic 30 gauge x 1/3" needle See Rx Instructions .ROUTE .MEDSUPPLY Qty: 1 RF: 0 glucagon HCl 1 mg recon soln See Rx Instructions IM .COMPLEX Qty: 1 RF: 1 omeprazole 40 mg capsule,delayed release(DR/EC) 40 mg PO DAILY RF: 0 aspirin 81 mg Tablet,Delayed Release (Dr/Ec) 81 mg PO HS RF: 0 Lantus U-100 Insulin 100 unit/mL solution 7 unit SQ BID RF: 0 albuterol sulfate 90 mcg/actuation HFA aerosol inhaler 2 inh INH QID RF: 0 ezetimibe 10 mg tablet 10 mg PO HS RF: 0 levothyroxine 100 mcg capsule 100 mcg PO DAILY@0600 RF: 0 Eliquis 5 mg tablet 5 mg PO BID Qty: 60 RF: 0 Discharge Orders: Discharge Order (Routine); Ordered 03/07/20 Ordered By: Ghada Zepeda Admission Data Admit Date/Time: 03/05/20 13:41 Attending Provider: Willard Savage Admit Provider: Brady Morales Primary Care Provider: Samuel Abreu Other Providers: Brady Morales Other Interventions: Discharge Summary Assessment (RN) Last Done: 03/07/20 14:56 Supervising Physician Co-Signing Physician Notes Patient seen and examined on the day of discharge. I agree with the discharge s annie by Ghada CASAS. I have reviewed the chart including labs, imaging and plans for discharge. patient breathing much better after diuresis, BNP is down to 5k, she feels ready to go home - Acute on chronic heart failure with reduced EF responded well to Lasix 20mg IV BID d/c home on Lasix 20mg daily, continue Entresto, fluid restriction CHF d/c instructions provided, needs to weigh herself daily - Elevated INR: unclear etiology, other liver function is intact certainly being on Eliquis could raise INR slightly gave vitamin K and INR down a little at 1.9 from 2.0 recommend follow up with PCP Coding Level of Care Code D/C Day Management >30 mins Diagnoses Acute on chronic systolic heart failure I50.23 Ischemic cardiomyopathy I25.5 Asthma-COPD overlap syndrome J44.9 HTN (hypertension) I10 Hyperlipidemia E78.5 T1DM (type 1 diabetes mellitus) E10.9 Hypothyroidism E03.9 History of pulmonary embolism Z86.[address] R93.89 Elevated INR R79.1 Anemia D64.9 DVT prophylaxis Z29.9
== END 2020-03-07 15:55 | disposition home or self-care (01) ==
LOC: ED 09:10 → 2W 09:10 → SUATTDRO 13:41 → 2W 15:43
DX: Z79.82 Long term (current) use of aspirin; R74.8 Abnormal levels of other serum enzymes; D64.9 Anemia, unspecified; N18.30 Chronic kidney disease, stage 3 unspecified; I25.5 Ischemic cardiomyopathy; E03.9 Hypothyroidism, unspecified; Z95.0 Presence of cardiac pacemaker; E78.5 Hyperlipidemia, unspecified; I13.0 Hypertensive heart and chronic kidney disease with heart failure and stage 1 through stage 4 chronic kidney disease, or unspecified chronic kidney disease; I50.23 Acute on chronic systolic (congestive) heart failure; Z79.01 Long term (current) use of anticoagulants; E10.9 Type 1 diabetes mellitus without complications; Z79.899 Other long term (current) drug therapy; Z87.891 Personal history of nicotine dependence; Z86.711 Personal history of pulmonary embolism; C78.00 Secondary malignant neoplasm of unspecified lung; R91.8 Other nonspecific abnormal finding of lung field

== ENCOUNTER 2020-04-25 09:42 | Observation (INO) ==
[2020-04-25] MEDS ORDERED: LIDOCAINE 1% LOCAL 20 ML VIAL ONE (10:15)
[2020-04-25] MEDS ORDERED: BACITRACIN INJ 50,000 UNIT VIAL ONE (10:15)
[2020-04-25] MEDS ORDERED: BACITRACIN OINT 0.9 GM PKT ONE (10:15)
--- NOTE | 2020-04-25 10:15 | History & Physical Bridge Note ---
Date of Service April 25, 2020 History & Physical Bridge Note I have examined the patient, reviewed the History & Physical and in the interval since the performance of the History & Physical I have noted the following changes of clinical significance: no changes noted. I reviewed the indications, procedure, risks and alternatives with the patient, answered all questions. Consent obtained. Patient understands and agrees to the procedure. I also reviewed the risks and use of sedation, patient understands and consent obtained.
--- NOTE | 2020-04-25 10:16 | Pre Anesthesia Assessment ---
Date of Service April 25, 2020 Pre Sedation Assessment Vital Signs Temp Pulse Resp BP Pulse Ox 04/25/20 09:55 36.8 C 93 H 20 124/64 98 Cardiovascular RRR, no murmur, no edema Respiratory normal respiratory effort, lungs clear to auscultation Pre-Sedation Airway Assessment Smoking Status: Former smoker Hx Sleep Apnea: No Hx Difficult Intubation: No Short, Thick Neck: Yes Thyromental Distance: > or= 3.5 Finger Breadths Oral Cavity: + WNL Mallampati Class: II ASA: ASA3 NPO Status Date of Last Intake of Fluids: 04/24/20 Time of Last Intake of Fluids: 21:00 Date of Last Intake of Solid Food: 04/24/20 Time of Last Intake of Solid Foods: 21:00 Procedure Planning Contraindications for Sedation: none Current Medications Reviewed: Yes Notes The planned sedation has been discussed with the patient. Informed Consent was obtained. I have identified the patient, determined the appropriateness of sedation and have assessed the patient immediately prior to the procedure. All medicine(s) and interventions are by my order.
[2020-04-25] MEDS ORDERED: fentaNYL citrate 100 MCG/2 ML VIAL ONE (10:36)
[2020-04-25] MEDS ORDERED: MIDAZOLAM HCL 5 MG/ML 1 ML VIAL ONE (10:36)
--- NOTE | 2020-04-25 11:59 | Electrophysiology Report ---
Date of Service April 25, 2020 Electrophysiology Procedure Electrophysiology Procedure Report Preoperative diagnosis: Cardiomyopathy Dual-chamber pacemaker Postoperative diagnosis: Same Procedure: Left subclavian venogram Coronary sinus angiogram Left ventricular lead implantation Dual-chamber pacemaker explantation Biventricular pacemaker implantation Surgeon: Michel Barnes MD Estimated blood loss: 30 cc Complications: None Disposition: All Source Analyst recovery Procedure details: Dye was injected the left arm IV site to opacify the left subclavian vein. The subclavian vein was identified and found to be free of obstruction. Left axillary venipuncture was performed and a guidewire placed through left subclavian vein into the right atrium. A 2 cm incision was made through the old implant scar and carried down to the pectoralis fascia. A CheckPoint HR coronary sinus sheath was advanced to position in the right atrium. It was positioned near the coronary sinus, dye was injected to opacify the office of the coronary sinus and a guidewire was advanced into the coronary sinus. The sheath system was advanced into the coronary sinus. Dye was injected in the coronary sinus in various projections to identify the venous branches. A good branch was identified and a left ventricular lead was advanced using a stylette into good position. The pacing threshold was evaluated in this position as noted on the implant data sheet. The sheath system was then removed from the lead and the lead was attached to the anterior pectoral fascia using 2 sutures of 2-0 silk around the lead collar. The pacemaker pocket was opened by further anesthetizing along the original implant site and incision was made through the scar and carried down to the pacemaker generator. The generator was dissected free of tissue and explanted. The leads were disconnected from the generator and a new biventricular pacemaker was attached to these leads as well as the coronary sinus lead. The pacemaker was placed in the pocket with the leads coiled beneath it and the incision was closed with a running double subcutaneous closure of 3-0 Vicryl followed by running subcuticular skin closure of 4-0 Vicryl. Bacitracin ointment was placed on incision and a dressing applied. [facility] Electrophysiology codes Pacing Procedure 1: Pacin BiV electrode only - stand alone procedure Procedure 2: Pacin Dual Pacemaker replacement Miscellaneous Procedures Procedure 1: EP Miscellaneous: 91512 Contrast injection for venography Procedure 2: EP Miscellaneous: 64597-23 Vengraphy, extremity Procedure 3: EP Miscellaneous: 27135-65 Venography, CS supevsion/interp PG Moderate Sedation Codes Moderate Sedation Codes Procedure 1: Sedation/Anesthesia: 12656 Mod Sedation by the same physician;Init15 Min Child Age 5 & Up Procedure 2: Sedation/Anesthesia: 27156 Mod Sedation by the same physician; Ea [id number] Minutes
[2020-04-25] MEDS ORDERED: ACETAMINOPHEN 325 MG TAB PO PRN (12:00)
[2020-04-25] MEDS ORDERED: KETOROLAC TROMETHAMINE 10 MG TABLET PO PRN (12:00)
--- NOTE | 2020-04-25 12:47 | Post Anesthesia Assessment ---
Date of Service April 25, 2020 Post Sedation Assessment Vital Signs Temp Pulse Resp BP Pulse Ox 04/25/20 12:15 80 20 115/57 L 95 04/25/20 12:00 83 20 119/57 L 96 04/25/20 09:55 36.8 C 93 H 20 124/64 98 Recovery Score Activity: Moves 4 extremities Respiration: Deep Breath/Cough Circulation: +/-20% PreAnes Value Consciousness: Fully Awake Oxygen Saturation: > 92% On Room Air Post Anesthesia Score: 10 Discharge Sedation Level of Care: Fast Track Phase II Post Sedation Plan On clinical assessment, the patient appears to have tolerated the sedation without complications. Patient is recovering as anticipated. Patient will continue to be monitored by nursing and may be discharged when sedation discharge criteria are met per below protocol. Upon Completions of procedure up to 15 minutes continue every 5 minute vital signs and the P.A.R. score; then discharge to a Phase I or Fast Track to Phase II per the following guidelines: * Discharge Patient to appropriate Phase II area if PAR is 8 or greater or return to pre- procedure baseline. The post - procedure orders will be as directed. * If PAR score is less than 8 or not return to pre-procedure baseline then lidia ent will follow Phase I monitoring till PAR is reached for Phase II. The Phase I may be done in procedure room or may call to secure a Phase I area. * If naloxone or flumazenil are used for reversal, hold in Phase I for continued monitoring from when last reversal dose was given for a minimum of 60 minutes or longer pending the nurse and/or physician discretion of patient condition before discharge to Phase II. Please call the Sedation Physician to re-evaluate and complete post-note for discharge to Phase II area. Do NOT discharge from procedure sedation or Phase 1 until post- sedation e valuation note is complete by procedure /sedation MD Sedation Discharge Instructions to be given to the patient at discharge to home.
[2020-04-25] MEDS ORDERED: FLUTICASONE/VILANTEROL 100/25MCG 14 PUFFS/INHALER INH PRN (15:09)
[2020-04-25] MEDS ORDERED: GLUCOSE 40% GEL 15 GM TUBE PO PRN (15:30)
[2020-04-25] MEDS ORDERED: GLUCOSE 10 TABS/TUBE PO PRN (15:30)
[2020-04-25] MEDS ORDERED: GLUCAGON FOR INJ 1 MG VIAL SQ PRN (15:30)
[2020-04-25] MEDS ORDERED: DEXTROSE 50% 50 ML SYRINGE IV PRN (15:30)
[2020-04-25] MEDS ORDERED: CARBOHYDRATES FOR HYPOGLYCEMIA PO PRN (15:30)
[2020-04-25] MEDS ORDERED: PHARMACY GLYCEMIC MGMT CONSULT PRN (16:03)
--- NOTE | 2020-04-25 16:17 | Pharmacy Report ---
Pharmacy Glycemic Short Note 2 - Date of Service April 25, 2020 - Glycemic Short OUTPATIENT ANTIDIABETIC REGIMEN: * Lantus 7 units BID; Novolog up to 30 units/day: CR 1:8 with breakfast, 1:10 with lunch; 1:15 with dinner (1:18 if active) * a1c 6.2% 03/06/20 ASSESSMENT: * Patient admitted post pacemaker implant. Will get BSG with dinner. * Initially ordered home lantus 7 units BID and Novolog sliding scale slightly loosened from previous admission (was on heparin infusion) * Will adjust orders as needed with further data PLAN FOR INPATIENT GLYCEMIC CONTROL: * Hold outpatient oral diabetes medications * Basal insulin * Lantus 7 units SQ BID * Bolus insulin * NovoLog per scale ACHS or Q6hrs while NPO * Goal Range: Low 110 mg/dL - High 140 mg/dL * Correction Factor: 30 mg/dL/unit * Nutritional / Prandial insulin per carb ratio of 1 unit per 12 grams CHO consumed
[2020-04-25] MEDS: INSULIN ASPART 100 UNITS/ML 3 ML PEN SC SCH ×2 (17:08→20:59)
[2020-04-25] MEDS ORDERED: EZETIMIBE 10 MG TABLET PO SCH (21:00)
[2020-04-25] MEDS ORDERED: ATORVASTATIN 40 MG TAB PO SCH (21:00)
[2020-04-25] MEDS ORDERED: ASPIRIN 81 MG ECTAB PO SCH (21:00)
[2020-04-25] MEDS ORDERED: CHOLECALCIFEROL 1,000 UNITS 25 MCG TAB PO SCH (21:00)
[2020-04-25] MEDS ORDERED: INSULIN GLARGINE SOLOSTAR 100 UNITS/ML 3 ML PEN SC SCH (21:00)
[2020-04-25] MEDS: APIXABAN 5 MG TABLET PO SCH (21:02)
[2020-04-25] MEDS: SACUBITRIL-VALSARTAN 49/51 MG TAB PO SCH (21:04)
[2020-04-25] MEDS: carvediloL 25 MG TAB PO SCH (21:14)
[2020-04-26] MEDS ORDERED: LEVOTHYROXINE SODIUM 100 MCG TABLET PO SCH (06:30)
[2020-04-26 07:12] LABS: BUN Creatinine Ratio 26.6 (10-20); Calcium 9.1 mg/dl (8.5-10.1); Creatinine Clr Calc Pharmacy 34.3 ml/min; Est GFR (African American) 50.5; Est GFR (Non-African American) 43.6; Potassium 4.3 mmol/L (3.5-5.1)
[2020-04-26] MEDS: carvediloL 25 MG TAB PO SCH (07:56)
[2020-04-26] MEDS: SACUBITRIL-VALSARTAN 49/51 MG TAB PO SCH (07:57)
[2020-04-26] MEDS: APIXABAN 5 MG TABLET PO SCH (07:57)
[2020-04-26] MEDS: INSULIN ASPART 100 UNITS/ML 3 ML PEN SC SCH (07:59)
[2020-04-26] MEDS ORDERED: PANTOprazole 40 MG TAB PO SCH (09:00)
[2020-04-26] MEDS ORDERED: FUROSEMIDE 40 MG TAB PO SCH (09:00)
[2020-04-26] MEDS ORDERED: CALCIUM 600MG + VIT D 400 IU TAB PO SCH (09:00)
[2020-04-26] MEDS ORDERED: FLUTICASONE PROPIONATE NA SPR 16 GM BTL SCH (09:00)
[2020-04-26] MEDS ORDERED: MEGESTROL ACETATE 40 MG TAB PO SCH (09:00)
--- NOTE | 2020-04-26 09:34 | XRay Report ---
XR chest 2V PA/lateral CLINICAL HISTORY: Chest x-ray status post pacemaker placement COMPARISON STUDY: 03/05/2020 FINDINGS: There is been interval placement of a left subclavian pacemaker. There is no pneumothorax. Electrode position appears unremarkable in the provided images. The heart is mildly enlarged. There a re bilateral pleural effusions right greater than left. There are persistent nonspecific right perihi lar opacities IMPRESSION: 1. No evidence of pneumothorax status post pacemaker placement 2. Bilateral pleural effusions right larger than left 3. Nonspecific right perihilar opacities ACT 112: Negative or not required by law. Electronically signed by: Paresh Hanson M.D. 04/26/2020 9:33 AM
--- NOTE | 2020-04-26 10:15 | Cardiology Progress Note ---
Date of Service April 26, 2020 Assessment & Plan (1) Status post placement of cardiac pacemaker: She is doing well postop day #1. The site looks good, she feels well and the device is working normally with excellent measurements. She is stable for discharge. Admission and Anticipated Discharge Date Admission Date: April 25, 2020 Subjective She feels much better today after device implant yesterday, she has no chest discomfort, no shortness of breath and no discomfort at the implant site. Physical Exam Physical Exam: The incision is clean and dry, no drainage, no ecchymosis or bleeding. Results & Data ([facility]) Vital Signs (Past 12 Hours) Vital Signs Temp Pulse Pulse Pulse Resp BP Pulse Ox 04/26/20 07:06 37 C 84 17 114/55 L 96 04/26/20 05:31 88 04/26/20 04:18 37 C 83 27 H 119/60 96 04/25/20 23:35 37.2 C 85 24 96/48 L 96 Diagnostic Findings Postop electrocardiogram: Her initial electrocardiogram yesterday after surgery suggests the LV is being activated too early, I did several different VV timing this morning and the best electrical timing is with an LV offset after the RV by 20 ms. Telemetry: Normal pacemaker function Pacemaker evaluation: Excellent pacing and sensing characteristics Chest x-ray: Good lead position, no pneumothorax PG Care Time/CCT Total # of Minutes Spent Total Time Spent with Patient: Total time spent is greater than 50% in coordination of care (as documented) at patient's floor/unit and/or counseling patient: Coding Level of Care Code 67488 Post Operative Follow-Up Diagnoses Status post placement of cardiac pacemaker Z95.0 CPT Codes Pacemaker Multi Lead Programming - 60801 ([id number])
[2020-04-26] MEDS ORDERED: INSULIN GLARGINE SOLOSTAR 100 UNITS/ML 3 ML PEN SC ONE (11:30)
--- NOTE | 2020-04-26 13:30 | Electrocardiogram Report ---
Test Reason : Blood Pressure : / mmHG Vent. Rate : 085 BPM Atrial Rate : 085 BPM P-R Int : 130 ms QRS Dur : 158 ms QT Int : 444 ms P-R-T Axes : 068 268 -21 degrees QTc Int : 528 ms Atrial-sensed ventricular-paced rhythm Biventricular pacemaker detected Abnormal ECG When compared with ECG of 05-MAR-2020 09:36, Vent. rate has decreased BY 14 BPM Confirmed by Michel Barnes ([id number]) on 04/26/2020 1:30:28 PM Referred By: Michel Barnes Confirmed By:Michel Barnes
--- NOTE | 2020-04-26 14:19 | Electrocardiogram Report ---
Test Reason : Blood Pressure : / mmHG Vent. Rate : 092 BPM Atrial Rate : 092 BPM P-R Int : 132 ms QRS Dur : 158 ms QT Int : 426 ms P-R-T Axes : 083 263 042 degrees QTc Int : 526 ms Atrial-sensed ventricular-paced rhythm BiV timing test LV early by 40 msec Abnormal ECG When compared with ECG of 25-APR-2020 15:29, (unconfirmed) Vent. rate has increased BY 7 BPM Confirmed by Michel Barnes ([id number]) on 04/26/2020 2:19:15 PM Referred By: Michel Barnes Confirmed By:Michel Barnes
--- NOTE | 2020-04-26 14:20 | Electrocardiogram Report ---
Test Reason : Blood Pressure : / mmHG Vent. Rate : 091 BPM Atrial Rate : 091 BPM P-R Int : 128 ms QRS Dur : 126 ms QT Int : 412 ms P-R-T Axes : 077 -81 097 degrees QTc Int : 506 ms Atrial-sensed ventricular-paced rhythm BiV pacemaker timing test LV-RV simultaneous Abnormal ECG When compared with ECG of 26-APR-2020 08:59, (unconfirmed) No significant change was found Confirmed by Michel Barnes ([id number]) on 04/26/2020 2:20:17 PM Referred By: Michel Barnes Confirmed By:Michel Barnes
--- NOTE | 2020-04-26 14:21 | Electrocardiogram Report ---
Test Reason : Blood Pressure : / mmHG Vent. Rate : 093 BPM Atrial Rate : 093 BPM P-R Int : 140 ms QRS Dur : 128 ms QT Int : 416 ms P-R-T Axes : 085 -76 100 degrees QTc Int : 517 ms Atrial-sensed ventricular-paced rhythm BiV pacing timing test LV delayed by 20 msec Abnormal ECG When compared with ECG of 26-APR-2020 09:06, (unconfirmed) Vent. rate has increased BY 2 BPM Confirmed by Michel Barnes ([id number]) on 04/26/2020 2:20:59 PM Referred By: Michel Barnes Confirmed By:Michel Barnes
--- NOTE | 2020-04-26 14:22 | Electrocardiogram Report ---
Test Reason : Blood Pressure : / mmHG Vent. Rate : 092 BPM Atrial Rate : 092 BPM P-R Int : 152 ms QRS Dur : 134 ms QT Int : 430 ms P-R-T Axes : 086 -73 102 degrees QTc Int : 531 ms Atrial-sensed ventricular-paced rhythm Bi-V pacemaker timing test LV delayed by 40 msec Abnormal ECG When compared with ECG of 26-APR-2020 09:07, (unconfirmed) No significant change was found Confirmed by Michel Barnes ([id number]) on 04/26/2020 2:21:50 PM Referred By: Michel Barnes Confirmed By:Michel Barnes
--- NOTE | 2020-05-13 06:59 | Discharge Summary ---
Date of Service May 13, 2020 Admission HPI Per Admitting Provider This is a 74-year-old woman who has a history of coronary artery disease, aortic stenosis who had bypass surgery with aortic valve replacement (with a bioprosthetic valve) in 2013. She presented to the emergency room on 01/26/2014 after having a syncopal episode and falling, she did fracture her left femur. She also had a prior syncopal event in May 2013 and has a long history of bifascicular block which occurred somewhere between 2008 and January 2013 on electrocardiography. On 01/27/2014 she had an episode of complete heart block identified on telemetry monitoring, although this occurred during an episode of vomiting, but with her prior history it was not clear that this was a vagal event. With her evidence of significant AV conduction disease and prior syncope we did implant a dual-chamber pacemaker on 02/01/2014. An echocardiogram at that time and subsequently July 19, 2018 her valve was working well and her left ventricular size was normal but she had mild left ventricular dysfunction with an ejection fraction of 45%. In December 2019 she presented with acute dyspnea and was noted to have a PE on CT scanning, however echocardiography also showed severe left ventricular dysfunction. Her ejection fraction December 31, 2019 was 25 to 30% with moderate to severe global hypokinesis and she was pacing all of the time in the ventricle. Her medications were changed with switching her metoprolol to carvedilol and her losartan to Entresto. Nuclear stress testing did not show significant ischemia to explain the change in her ejection fraction. She has continued to do poorly with her heart failure. She was hospitalized in mid February for an exacerbation of congestive heart failure, in part because she stopped taking her Lasix, and since then her weight and her edema has been under good control. She has however continued to feel very poorly with a marked decrease in exercise ability and general fatigue. 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 I did discuss this with her, in the past we have approached it and she has been reluctant however with continued worsening in her symptoms she is now anxious to proceed. I did discuss ICD therapy with her versus pacing alone, she does not want to be resuscitated should she have a cardiac arrhythmia and therefore upgrading to biventricular pacemaker is probably the best option. She is agreeable. Admission Exam (Per Admitting) Constitutional Constitutional: Alert, cooperative and in no distress. HEENT: Unremarkable Neck: No jugular venous distention, carotid pulses are normal and equal bilaterally without bruits. Pulmonary: Slight crackles at the right base, left lung is clear. Cardiac: Regular somewhat rapid rhythm with a very soft crescendo decrescendo murmur at the base, no gallop or rub. Abdomen: Soft, nontender with normal bowel sounds. Extremities: No edema. Distal pulses intact. Neurologic: No focal findings. Gait is steady. Skin: The device site is well-healed without erythema, swelling or tenderness. No rash, ecchymoses or petechiae. Discharge Data Procedures Performed Operation Date: 04/25/20 11:00 Actual Procedures p Upgrade of any system to BIV - Michel Barnes MD s Pacer Gen Change Multiple - Michel Barnes MD Hospital Course (1) Status post placement of cardiac pacemaker: A left ventricular (coronary sinus) lead was placed uneventfully. She is doing well postop day #1. The site looks good, she feels well and the device is working normally with excellent measurements. She is stable for discharge. Coding Level of Care Code None Diagnoses Status post placement of cardiac pacemaker Z95.0 CPT Codes Pacemaker Multi Lead Programming - 80523 ([id number])
== END 2020-04-26 11:21 | disposition home or self-care (01) ==
LOC: 2E 09:42 → EP 09:42

== ENCOUNTER 2020-09-25 09:06 | Inpatient (IN) ==
[2020-09-25] MEDS ORDERED: SODIUM CHLORIDE 0.9% 1000ML 1,000 ML IV STA (09:34)
--- NOTE | 2020-09-25 10:11 | Emergency Department Note ---
Impression & Plan Hemoptysis, Right lower lobe pneumonia ED Provider Note INFORMANT: Patient and ED PROVIDER(S): Carlos Vick MD CHIEF COMPLAINT: Hemoptysis PLAN: Disposition: Admitted Condition: Good Outpatient prescription management: none Referral: None MEDICAL DECISION MAKING: Patient presented because of hemoptysis. Blood work was obtained. She was found to have a mild leukocytosis. Her INR was mildly elevated 1.6. The patient is on anticoagulation. Chemistry panel reveals mild dehydration. The patient's vital signs were stable. She underwent CT imaging which did not reveal any obvious evidence of pulmonary embolism. There was significant infiltrate of change and congestion in the right lower lobe. Unchanged appearance of the tumor per radiology. Occlusion of the bronchus intermedius was noted. Blood cultures were performed. The patient did receive a dose of IV cefepime. I discussed the findings and issues with her oncologist Dr. Park. He would like the patient to be admitted for antibiotics and pulmonary consultation for possible bronchoscopy. The case [facility] with [facility]. The patient will be admitted for further management. Triage Nursing notes reviewed and agree them. Vital Signs: reviewed and remarkable for no significant abnormalities Differential diagnosis: PE, pneumonia, pneumothorax, infections, complication of CA, gastrointestinal, as well as other pathologies. Diagnostics interpreted by me: ECG: Twelve-lead ECG reveals a atrial sensed ventricular paced rhythm at 88 bpm. No evidence of ST elevation. No PVCs. Cardiac Monitoring: Cardiac monitoring ordered by me: The patient was placed on continuous cardiac monitoring and observed. It revealed a paced rhythm at 94 be ats per minute without ectopy or evidence of dysrhythmia. Imaging studies: Chest x-ray concerning for right lower lobe infiltrate. CT imaging as noted below. HPI: The patient is a 75 year old female who presents to the Emergency Room with complaints of coughing up blood. This started 2 months ago and is worsening. 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 Currently on Eliquis. The patient also notes the following associated symptoms, SOB. The patient has found no relieving factors. Current pain is rated as 0/10. Pt denies LOC, headache, fevers, chills, diaphoresis, visual changes, neck pain, chest pain, nausea, vomiting, abdominal pain, back pain, melena, hematochezia, urinary symptoms, numbness, weakness, lymphadenopathy, rash, or other complaints. ROS: See above HPI for pertinent positives & negatives. A total of 10 systems reviewed and were otherwise negative. PAST MEDICAL HISTORY:See Below , PE, CA, DM PAST SURGICAL HISTORY:See Below, FAMILY HISTORY:See Below SOCIAL HISTORY:See Below, HOME MEDICATIONS:See Below ALLERGIES:See Below VITALS:See Below PHYSICAL EXAMINATION: GENERAL: Awake, alert, well-appearing, in no distress HENT: Normocephalic, atraumatic. Oropharynx unremarkable. EYES: Pale conjunctiva. Sclera non-icteric. NECK: Inspection normal. Non-tender. Supple. No nuchal rigidity. FROM. No masses. RESPIRATORY: Clear to auscultation. No wheezes. No rales. Normal respiratory effort. CARDIAC: Normal rate. Normal rhythm. No murmurs. No rubs. Extremities warm and well perfused. Pulses equal. No JVD. GI: Soft, non-distended. No tenderness to palpation. No rebound or guarding. No masses. RECTAL: Deferred. MUSCULOSKELETAL: Atraumatic. Chest examination reveals no tenderness. The back is symmetrical on inspection without obvious abnormality. There is no CVA tenderness to palpation. No joint edema. LOWER EXTREMITIES: Calves are equal size bilaterally and non-tender. No edema. No discoloration. NEURO: Normal sensorium. No sensory or motor deficits noted. SKIN: No rash or jaundice noted. 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 IMPLANTED 2013 FOR BIFASCICULAR BLOCK WITH TRANSIENT COMPLETE HEART BLOCK. LAST CHECKED 06/2019 [facility]. Pulmonary emboli T1DM (type 1 diabetes mellitus) DX 1954 Vitamin D deficiency Surgical History Family history of reaction to anesthesia DAUGHTER-GETS SICK H/O aortic valve replacement 2014 AT [facility] History of appendectomy History of bilateral tubal ligation History of bronchoscopy 2005 History of cardiac cath History of cataract surgery RT/LEFT History of colon resection History of colonoscopy History of esophagogastroduodenoscopy (EGD) History of lung surgery RT LOWER LOBE REMOVAL History of open reduction and internal fixation (ORIF) procedure LEFT HIP History of placement of chest tube with chemical pleurodesis (non-chemotherapeutic) History of tooth extraction History of total hysterectomy S/P CABG (coronary artery bypass graft) 2014 AT [facility] Family History Mother Hypertension Brother Family history of diabetes mellitus Family history of esophageal cancer Other Asthma Cancer Diabetes Social History Smoking Status: Former smoker Tobacco Type: Cigarettes Age Started Using Tobacco: 16; Age Quit Using Tobacco: 56; Second Hand Exposure: No; Hx Alcohol Use: No Hx Substance Use: No Preferred Language: Vincentian Communication Ability: Effective [employer]er Required: No Beliefs That Will Affect Care: None Current Living Situation: Spouse Feels Safe at Home: Yes Assistive Devices: None Allergies Allergies Allergy/AdvReac Type Severity Reaction Status Date / Time oxycodone [From Percocet] AdvReac Gastrointestinal Verified 09/25/20 10:13 Upset Home Meds Home Medications Medication Instructions Recorded Confirmed atorvastatin 80 mg tablet 80 mg PO HS tab 09/29/18 09/25/20 cholecalciferol (vitamin D3) 50 2,000 units PO HS cap 11/28/18 09/25/20 mcg (2,000 unit) capsule megestrol 40 mg tablet 40 mg PO QAM tab 02/19/19 09/25/20 lancets (OneTouch UltraSoft #50 ea 02/22/19 07/23/20 Lancets) blood-glucose sensor (Dexcom G6 #3 ea 06/28/19 07/23/20 Sensor) calcium 600 mg-D3 800 unit-mag11 1 tab PO DAILY 11/02/19 09/25/20 50 gx-umxx-llztyi-loyd-s.borat tablet (Caltrate 600-D Plus Minerals) insulin syringe-needle U-100 0.5 #10 ea 11/02/19 07/23/20 mL 31 gauge x 5/16" (BD Insulin Syringe Ultra-Fine) pen needle, diabetic 30 gauge x #1 11/02/19 07/23/20 1/3" omeprazole 40 mg capsule,delayed 40 mg PO QAM 03/05/20 09/25/20 release insulin aspart U-100 100 unit/mL 1 - 30 unit SUBCUT DIRECTED ml 05/03/20 09/25/20 (3 mL) subcutaneous pen (Novolog Flexpen U-100 Insulin aspart) glucagon HCl 1 mg/mL solution for 1 mg IM DIRECTED PRN 09/25/20 09/25/20 injection insulin glargine 100 unit/mL 7 unit SQ AMPM 09/25/20 09/25/20 subcutaneous solution (Lantus U-100 Insulin) naproxen 220 mg-diphenhydramine 25 1 tab PO HS PRN 09/25/20 09/25/20 mg tablet (Aleve PM) Previous Rx's Medication Instructions Recorded [employer] Ultra Blue Test Strip #300 ea NS 02/07/19 (blood sugar diagnostic) apixaban 5 mg tablet (Eliquis) 5 mg PO BID #60 tab 01/03/20 ezetimibe 10 mg tablet 10 mg PO HS #90 tab 03/19/20 Flutter Valve #1 ea 04/18/20 fluticasone propionate 50 1 spray INTNAS QAM #15.8 ml 04/23/20 mcg/actuation nasal spray,suspension (Allergy Relief (fluticasone)) levothyroxine 100 mcg capsule 100 mcg PO DAILY@0600 #30 cap 06/10/20 Incentive Spirometer #1 ea 07/23/20 albuterol sulfate 90 mcg/actuation 2 inh INH QID #18 g 07/23/20 aerosol inhaler budesonide-formoterol HFA 80 2 inh INH BID PRN #10.2 g 07/23/20 mcg-4.5 mcg/actuation aerosol inhaler (Symbicort) guaifenesin 600 mg tablet, 600 mg PO BID PRN #60 tab 07/23/20 extended release 12 hr (Mucinex) carvedilol 25 mg tablet 25 mg PO BID #90 tab 07/26/20 sacubitril 97 mg-valsartan 103 mg 1 tab PO BID #60 tab 09/02/20 tablet Results & Data (ED) Vital Signs Vital Signs - 24 hr 09/25/20 09:09 09/25/20 12:53 09/25/20 12:54 Temperature 36.3 C L Temperature Source Temporal Artery Scan Pulse Rate 99 H Pulse Rate [Apical] 107 H Respiratory Rate 18 20 Respiratory Effort / Characteristics Non-Labored Respiratory Depth Normal Blood Pressure 127/64 Blood Pressure [Left Arm] 106/53 L Blood Pressure Mean 85 Blood Pressure Mean [Left Arm] 70 Pulse Oximetry 98 99 99 Oxygen Delivery Method Room Air Room Air Sepsis Recent Fever Within 48 Hours No Sepsis New/Unexplained Change in Mental Status No Sepsis Action Taken by Nursing No Action Required 09/25/20 15:37 09/25/20 17:33 Temperature Temperature Source Pulse Rate Pulse Rate [Apical] 91 H 94 H Respiratory Rate 16 18 Respiratory Effort / Characteristics Respiratory Depth Blood Pressure Blood Pressure [Left Arm] 119/50 L 112/67 Blood Pressure Mean Blood Pressure Mean [Left Arm] 73 82 Pulse Oximetry 96 97 Oxygen Delivery Method Room Air Sepsis Recent Fever Within 48 Hours Sepsis New/Unexplained Change in Mental Status Sepsis Action Taken by Nursing Laboratory Data Result diagrams: 09/25/20 11:33 09/25/20 11:33 Lab Results 09/25/20 09/25/20 09/25/20 Range/Units 11:33 11:33 11:33 WBC 11.66 H (4.8-10.8) K/uL RBC 3.26 L (4.2-5.4) M/uL Hgb 9.1 L (12.0-16.0) g/dL Hct 30.0 L (37-47) % MCV 92.0 (80-100) fL MCH 27.9 (25-34) pg MCHC 30.3 L (32-36) g/dL RDW Std Deviation 71.3 H (36.4-46.3) fL RDW Coeff of Daniel 21.1 H (11.5-14.5) % Plt Count 370 (130-400) K/uL MPV 8.6 (7.4-10.4) fL Immature Gran % (Auto) 0.4 % Neut % (Auto) 81.1 % Lymph % (Auto) 13.0 % Ceiba % (Auto) 4.5 % Eos % (Auto) 0.7 % Baso % (Auto) 0.3 % Neut # (Auto) 9.46 H (1.4-6.5) K/uL Lymph # (Auto) 1.51 (1.2-3.4) K/uL Ceiba # (Auto) 0.52 (0.11-0.59) K/uL Eos # (Auto) 0.08 (0-0.5) K/uL Baso # (Auto) 0.04 (0-0.2) K/uL Immature Gran # (Auto) 0.05 H (0.00-0.02) K/uL Polychromasia 1+ Anisocytosis Present Echinocytes 1+ Schistocytes 1+ PT 15.3 H (9.0-12.0) Seconds INR 1.6 H (0.9-1.1) APTT 43.4 H (21.0-31.0) Seconds PTT Ratio 1.7 Sodium (136-145) mmol/L Potassium (3.5-5.1) mmol/L Chloride (98-107) mmol/L Carbon Dioxide (21-32) mmol/L Anion Gap (3-11) BUN (7-18) mg/dl Creatinine (0.6-1.2) mg/dl Est Cr Clr Drug Dosing ml/min Est GFR ( Amer) ml/min Est GFR (Non-Af Amer) ml/min BUN/Creatinine Ratio (10-20) Glucose (70-99) mg/dl Calcium (8.5-10.1) mg/dl Total Bilirubin (0.2-1) mg/dl AST (15-37) U/L ALT (12-78) U/L Alkaline Phosphatase (45-117) U/L Total Protein (6.4-8.2) gm/dl Albumin (3.4-5.0) gm/dl Globulin (2.5-4.0) gm/dl Albumin/Globulin Ratio (0.9-2) COVID-19 Eval Order SARS-CoV-2 (PCR) (Negative) Blood Type O Positive Antibody Screen NEGATIVE 09/25/20 09/25/20 09/25/20 Range/Units 11:33 15:15 15:15 WBC (4.8-10.8) K/uL RBC (4.2-5.4) M/uL Hgb (12.0-16.0) g/dL Hct (37-47) % MCV (80-100) fL MCH (25-34) pg MCHC (32-36) g/dL RDW Std Deviation (36.4-46.3) fL RDW Coeff of Daniel (11.5-14.5) % Plt Count (130-400) K/uL MPV (7.4-10.4) fL Immature Gran % (Auto) % Neut % (Auto) % Lymph % (Auto) % Ceiba % (Auto) % Eos % (Auto) % Baso % (Auto) % Neut # (Auto) (1.4-6.5) K/uL Lymph # (Auto) (1.2-3.4) K/uL Ceiba # (Auto) (0.11-0.59) K/uL Eos # (Auto) (0-0.5) K/uL Baso # (Auto) (0-0.2) K/uL Immature Gran # (Auto) (0.00-0.02) K/uL Polychromasia Anisocytosis Echinocytes Schistocytes PT (9.0-12.0) Seconds INR (0.9-1.1) APTT (21.0-31.0) Seconds PTT Ratio Sodium 138 (136-145) mmol/L Potassium 4.8 (3.5-5.1) mmol/L Chloride 111 H (98-107) mmol/L Carbon Dioxide 23 (21-32) mmol/L Anion Gap 4.0 (3-11) BUN 50 H (7-18) mg/dl Creatinine 1.49 H (0.6-1.2) mg/dl Est Cr Clr Drug Dosing 26.9 ml/min Est GFR ( Amer) 39.4 ml/min Est GFR (Non-Af Amer) 34.0 ml/min BUN/Creatinine Ratio 33.5 H (10-20) Glucose 117 H (70-99) mg/dl Calcium 8.7 (8.5-10.1) mg/dl Total Bilirubin 0.6 (0.2-1) mg/dl AST 24 (15-37) U/L ALT 22 (12-78) U/L Alkaline Phosphatase 120 H (45-117) U/L Total Protein 8.1 (6.4-8.2) gm/dl Albumin 2.3 L (3.4-5.0) gm/dl Globulin 5.8 H (2.5-4.0) gm/dl Albumin/Globulin Ratio 0.4 L (0.9-2) COVID-19 Eval Order Covid19 at [facility] SARS-CoV-2 (PCR) NEGATIVE (Negative) Blood Type Antibody Screen Administered Medications Discontinued Medications Sodium Chloride (Nss 1000ml) 1,000 mls @ 125 mls/hr IV .Q8H STA Stop: 09/25/20 17:33 Last Admin: 09/25/20 15:38 Dose: 125 mls/hr Documented by: [id number] Cefepime HCl (Maxipime) 2,000 mg in 20 mls @ 5 mls/min IV NOW STA; Protocol Stop: 09/25/20 14:59 Last Admin: 09/25/20 15:38 Dose: 5 mls/min Documented by: [id number] Ioversol (Optiray 320 125ml) 120 ml IV ONCE ONE Stop: 09/25/20 13:11 Last Admin: 09/25/20 13:12 Dose: 120 ml Documented by: [id number] Imaging Data Radiologist's Impression: Chest X-Ray 09/25/20 09:34 XR chest 1V portable CLINICAL HISTORY: hemoptysis COMPARISON STUDY: April 26, 2020 FINDINGS: No pneumothorax. Moderate right pleural effusion is seen associated with patchy airspace opacities within the right mid to lower lung which might represent infiltrative process/pneumonia. No pleural effusion is seen on the left. Cardiomediastinal silhouette is within upper limits of normal and partially obscured on the right. Pulmonary vasculature is obscured.. Aorta is calcified. Osseous structures: Osteopenia. Degenerative changes of the spine. Deformity of bilateral shoulders are seen. Stable position of right-sided triple lead pacemaker with battery pack partially obscuring left lung parenchyma. Midline sternotomy wires are again seen. IMPRESSION: 1. Moderate right pleural effusion associated with infiltrative process within right mid to lower lung. 2. The rest of findings as above. ACT 112: Negative or not required by law. The above report was generated using voice recognition software. It may contain grammatical, syntax or spelling errors. Electronically signed by: Sola Gonsalves DO 09/25/2020 10:39 AM Chest CTA 09/25/20 10:12 CT ANGIOGRAM OF THE CHEST CLINICAL HISTORY: hemoptysis COMPARISON STUDY: April 18, 2020 TECHNIQUE: Following the IV administration of 120 mL of Optiray, CT angiogram of the thorax was performed from the thoracic inlet to the lung bases utilizing the pulmonary embolus protocol. Images are reviewed in the axial, sagittal, and coronal planes. IV contrast was administered without complication. MIP imaging was performed. A dose lowering technique was utilized adhering to the principles of ALARA. CT DOSE: 392.93 mGy.cm FINDINGS: There is adequate opacification within main pulmonary artery. No definite pulmonary embolus is seen. Significantly decreased opacification of the pulmonary artery branches within collapsed portion of the right lower lobe likely due to flow artifact. Pulmonary artery is normal in caliber. No evidence of right heart strain. Minimal four-chamber cardiomegaly. No significant pericardial effusion. Severe calcifications of the [place] coronary arteries. Status post CABG No pathologically enlarged axillary mediastinal or hilar lymph nodes were visualized. Thoracic aorta is normal in caliber with scattered calcifications of its wall. Possible postoperative changes within aortic valve. Visualized portion of thyroid gland shows slightly enlarged left thyroid lobe and hypoattenuating heterogeneous nodule measuring 1.8 cm in size. Mild hiatal hernia is seen. Trachea and left bronchial tree is patent. Complete occlusion of the bronchus intermedius is seen as well as heterogeneous consolidation within the right lower lobe. Nodular enhancement with calcifications are seen within posterior inferior hemithorax, could be due to pleural thickening or enhancing lesion within collapsed right lower lobe. Findings are stable since prior. Limited evaluation of upper abdominal viscera shows no evidence of acute abnormalities and multiple calcifications within splenic parenchyma which could be due to remote granulomatous process. Osseous structures: Multilevel degenerative changes of the spine. Healed sternotomy defect. IMPRESSION: 1. No definite pulmonary embolus is seen. Diminished flow within right lower lobe pulmonary artery branch supplying area of chronic consolidation is likely due to flow artifact. 2. Chronic consolidative opacity of the right lower lobe associated with partial calcified nodular thickening of the pleura which is unchanged since prior. Patchy hypoattenuating opacities within right lower lobe might represent pneumonia or related to aspiration. 3. Status post cardiac surgery. 4. Heterogeneous hypoattenuating nodule within left thyroid lobe. 5. Mild hiatal hernia. 6. The rest of findings as above. ACT 112: Negative or not required by law. The above report was generated using voice recognition software. It may contain grammatical, syntax or spelling errors. Electronically signed by: Sola Gonsalves DO 09/25/2020 1:41 PM Discharge Plan Visit Data Chief Complaint: Cough Stated Complaint: THROWING UP BLOOD ED Provider: Carlos Vick Discharge Problem: Hemoptysis, Right lower lobe pneumonia Discharge Instructions Interventions: ED Discharge Assessment Last Done: 09/25/20 17:50 Forms Stand Alone Forms: My [facility]iza Analyze Re Prescriptions Prescriptions: No Action (DME) OneTouch Ultra Blue Test Strip strip See Dose Instructions .ROUTE .MEDSUPPLY Qty: 300 RF: 3 ezetimibe 10 mg tablet 10 mg PO HS Qty: 90 RF: 3 (DME) Flutter Valve Device See Rx Instructions .ROUTE .MEDSUPPLY Qty: 1 RF: 0 levothyroxine 100 mcg capsule 100 mcg PO DAILY@0600 Qty: 30 RF: 5 carvedilol 25 mg tablet 25 mg PO BID Qty: 90 RF: 3 Caltrate 600-D Plus Minerals 600 mg calcium- 800 unit-50 mg tablet 1 tab PO DAILY RF: 0 (DME) [employer] G6 Sensor Device See Rx Instructions .ROUTE .MEDSUPPLY Qty: 3 RF: 0 fluticasone propionate [Allergy Relief (fluticasone)] 50 mcg/actuation spray,suspension 1 spray INTNAS QAM Qty: 15.8 RF: 2 insulin aspart U-100 [Novolog Flexpen U-100 Insulin] 100 unit/mL (3 mL) insulin pen 1 - 30 unit subcut DIRECTED RF: 0 cholecalciferol (vitamin D3) 2,000 unit capsule 2,000 units PO HS RF: 0 atorvastatin 80 mg tablet 80 mg PO HS RF: 0 megestrol 40 mg tablet 40 mg PO QAM RF: 0 (DME) lancets [OneTouch UltraSoft Lancets] Misc See Dose Instructions .ROUTE .MEDSUPPLY Qty: 50 RF: 0 (DME) insulin syringe-needle U-100 [BD Insulin Syringe Ultra-Fine] 0.5 mL 31 gauge x 5/16" syringe See Rx Instructions .ROUTE .MEDSUPPLY Qty: 10 RF: 0 (DME) pen needle, diabetic 30 gauge x 1/3" needle See Rx Instructions .ROUTE .MEDSUPPLY Qty: 1 RF: 0 albuterol sulfate 90 mcg/actuation HFA aerosol inhaler 2 inh INH QID Qty: 18 RF: 3 budesonide-formoterol [Symbicort] 80-4.5 mcg/actuation HFA aerosol inhaler 2 inh INH BID PRN (Reason: Shortness Of Breath Or Wheezing) Qty: 10.2 RF: 7 guaifenesin [Mucinex] 600 mg tablet extended release 12hr 600 mg PO BID PRN (Reason: congestion) Qty: 60 RF: 1 (DME) Incentive Spirometer Misc See Rx Instructions .MEDSUPPLY Qty: 1 RF: 0 sacubitril-valsartan 97-103 mg tablet 1 tab PO BID Qty: 60 RF: 11 omeprazole 40 mg capsule,delayed release(DR/EC) 40 mg PO QAM RF: 0 Eliquis 5 mg tablet 5 mg PO BID Qty: 60 RF: 0 Lantus U-100 Insulin 100 unit/mL solution 7 unit SQ AMPM RF: 0 glucagon HCl 1 mg recon soln 1 mg IM DIRECTED PRN (Reason: diabetic emergency) RF: 0 Aleve PM 220-25 mg Tablet 1 tab PO HS PRN (Reason: Sleep) RF: 0 Referrals Referrals: Samuel Abreu [Primary Care Provider] -
--- NOTE | 2020-09-25 10:40 | XRay Report ---
XR chest 1V portable CLINICAL HISTORY: hemoptysis COMPARISON STUDY: April 26, 2020 FINDINGS: No pneumothorax. Moderate right pleural effusion is seen associated with patchy airspace opacities within the right mi d to lower lung which might represent infiltrative process/pneumonia. No pleural effusion is seen on the left. Cardiomediastinal silhouette is within upper limits of normal and partially obscured on the right. Pulmonary vasculature is obscured.. Aorta is calcified. Osseous structures: Osteopenia. Degenerative changes of the spine. Deformity of bilateral shoulders are seen. Stable position of right-sided triple lead pacemaker with battery pack partially obscuring left lung parenchyma. Midline sternotomy wires are again seen. IMPRESSION: 1. Moderate right pleural effusion associated with infiltrative process within right mid to lower julio ng. 2. The rest of findings as above. ACT 112: Negative or not required by law. The above report was generated using voice recognition software. It may contain grammatical, syntax o r spelling errors. Electronically signed by: Sola Gonsalves DO 09/25/2020 10:39 AM
[2020-09-25 11:45] LABS: Hemoglobin 9.1 g/dL (12.0-16.0); Mean Corpuscular Hemoglobin 27.9 pg (25-34); Mean Corpuscular Hgb Conc 30.3 g/dL (32-36); Mean Platelet Volume 8.6 fL (7.4-10.4); Platelet Count 370 K/uL (130-400); RDW Coefficient of Variation 21.1 % (11.5-14.5); RDW Standard Deviation 71.3 fL (36.4-46.3); Red Blood Count 3.26 M/uL (4.2-5.4); White Blood Count 11.66 K/uL (4.8-10.8)
[2020-09-25 12:02] LABS: Albumin Level 2.3 gm/dl (3.4-5.0); BUN Creatinine Ratio 33.5 (10-20); Calcium 8.7 mg/dl (8.5-10.1); Creatinine Clr Calc Pharmacy 26.9 ml/min; Est GFR (African American) 39.4 ml/min; Potassium 4.8 mmol/L (3.5-5.1)
[2020-09-25 12:03] LABS: INR 1.6 (0.9-1.1); Partial Thromboplastin Ratio 1.7; Partial Thromboplastin Time 43.4 Seconds (21.0-31.0); Prothrombin Time 15.3 Seconds (9.0-12.0)
[2020-09-25 12:04] LABS: Albumin Globulin Ratio 0.4 (0.9-2); Bilirubin,Total 0.6 mg/dl (0.2-1); Globulin 5.8 gm/dl (2.5-4.0); Total Protein 8.1 gm/dl (6.4-8.2)
[2020-09-25 12:48] LABS: Anisocytosis Present; Basophils # (auto) 0.04 K/uL (0-0.2); Basophils % (auto) 0.3 %; Echinocytes 1+; Eosinophils # (auto) 0.08 K/uL (0-0.5); Eosinophils % (auto) 0.7 %; Immature Granulocytes # (auto) 0.05 K/uL (0.00-0.02); Immature Granulocytes % (auto) 0.4 %; Lymphocytes # (auto) 1.51 K/uL (1.2-3.4); Monocytes # (auto) 0.52 K/uL (0.11-0.59); Monocytes % (auto) 4.5 %; Neutrophils # (auto) 9.46 K/uL (1.4-6.5); Neutrophils % (auto) 81.1 %; Polychromasia 1+; Schistocytes 1+
[2020-09-25] MEDS ORDERED: OPTIRAY 320 125ml IV ONE (13:10)
--- NOTE | 2020-09-25 13:42 | CT Scan Report ---
CT ANGIOGRAM OF THE CHEST CLINICAL HISTORY: hemoptysis COMPARISON STUDY: April 18, 2020 TECHNIQUE: Following the IV administration of 120 mL of Optiray, CT angiogram of the thorax was perfo rmed from the thoracic inlet to the lung bases utilizing the pulmonary embolus protocol. Images are r eviewed in the axial, sagittal, and coronal planes. IV contrast was administered without complication . MIP imaging was performed. A dose lowering technique was utilized adhering to the principles of AL BILLY. CT DOSE: 392.93 mGy.cm FINDINGS: There is adequate opacification within main pulmonary artery. No definite pulmonary embolus is seen. Significantly decreased opacification of the pulmonary artery branches within collapsed portion of the right lower lobe likely due to flow artifact. Pulmonary artery is normal in caliber. No evidence of right heart strain. Minimal four-chamber cardiomegaly. No significant pericardial effusion. Severe calcifications of the [place] coronary arteries. Status post CABG No pathologically enlarged axillary mediastinal or hilar lymph nodes were visualized. Thoracic aorta is normal in caliber with scattered calcifications of its wall. Possible postoperative changes within aortic valve. Visualized portion of thyroid gland shows slightly enlarged left thyroid lobe and hypoattenuating het erogeneous nodule measuring 1.8 cm in size. Mild hiatal hernia is seen. Trachea and left bronchial tree is patent. Complete occlusion of the bronchus intermedius is seen as well as heterogeneous consolidation within the right lower lobe. Nodular enhancement with calcificati ons are seen within posterior inferior hemithorax, could be due to pleural thickening or enhancing [place] within collapsed right lower lobe. Findings are stable since prior. Limited evaluation of upper abdominal viscera shows no evidence of acute abnormalities and multiple c alcifications within splenic parenchyma which could be due to remote granulomatous process. Osseous structures: Multilevel degenerative changes of the spine. Healed sternotomy defect. IMPRESSION: 1. No definite pulmonary embolus is seen. Diminished flow within right lower lobe pulmonary artery b [place] supplying area of chronic consolidation is likely due to flow artifact. 2. Chronic consolidative opacity of the right lower lobe associated with partial calcified nodular thickening of the pleura which is unchanged since prior. Patchy hypoattenuating opacities within righ t lower lobe might represent pneumonia or related to aspiration. 3. Status post cardiac surgery. 4. Heterogeneous hypoattenuating nodule within left thyroid lobe. 5. Mild hiatal hernia. 6. The rest of findings as above. ACT 112: Negative or not required by law. The above report was generated using voice recognition software. It may contain grammatical, syntax o r spelling errors. Electronically signed by: Sola Gonsalves DO 09/25/2020 1:41 PM
--- NOTE | 2020-09-25 14:03 | Electrocardiogram Report ---
Test Reason : Blood Pressure : / mmHG Vent. Rate : 088 BPM Atrial Rate : 088 BPM P-R Int : 132 ms QRS Dur : 130 ms QT Int : 422 ms P-R-T Axes : 071 -66 098 degrees QTc Int : 510 ms Atrial-sensed ventricular-paced rhythm Biventricular pacemaker detected Abnormal ECG When compared with ECG of 26-APR-2020 09:09, Vent. rate has decreased BY 4 BPM Confirmed by Tam Bowie ([id number]) on 09/25/2020 2:03:12 PM Referred By: Bright Guzmán Confirmed By:Codey Bowie
[2020-09-25] MEDS ORDERED: CEFEPIME 2,000 MG/20 ML VIAL IV STA (14:56)
--- NOTE | 2020-09-25 17:01 | History & Physical Report ---
Date of Service September 25, 2020 Assessment & Plan (1) Hemoptysis: Plan: Not severe hemoptysis, she did note increase in amount and frequency - CTA of the chest performed as above - Will hold her Eliquis tonight - INR 1.6- no need to acutly reverse - Cough suppressant added- Robitussin DM 5ml prn q6 hours can increase if needed - restart home inhalers for her dyspnea As per HPI patient has strong clearing cough and is not hypoxic. PCU to monitor overnight (2) Pneumonia: Plan: Post obstructive pneumonia likely - WBC elevated, no fever, increase cough - Continue Cefepime - Add Arthro for atypical - blood cultures pending - not septic- - De-escalate antibiotics as clinically able - May have role for bronchoscopy evaluation given history (3) Pulmonary emboli: Plan: History of RLL PE on CTA of 12/29- transitioned to Eliqius at that time. - INR 1.6 last dose of ELiquis [id number] - Hold Eliquis at this time - Therapy discussion on the current state of her malignancy to continue or not continue with anticoagulation therapy (4) Upper airway cough syndrome: Plan: As above, continue with Flutter valve, Robitussin, home inhaler therapy (5) Abnormal chest CT: Plan: Complete occlusion of the bronchus intermedius is seen as well as heterogeneous consolidation within the right lower lobe. Nodular enhancement with calcifications are seen within posterior inferior hemithorax, could be due to pleural thickening or enhancing lesion within collapsed right lower lobe. Findings are stable since prior. Chronic consolidative opacity of the right lower lobe associated with partial calcified nodular thickening of the pleura which is unchanged since prior. Patchy hypoattenuating opacities within right lower lobe might represent pneumonia or related to aspiration. Patient was discussed with these findings in the past with pulmonary and tumor board- was following with EBUS screening - Her RBI narrowing is throught o be related to her radiation therapy that she received for her cancer - EBUS with [facility]NA performed in 2019- negative for malgnancy but with chronic inflammation and reactive epithelial changes - Conservative managment in regards to her RBI was discussed. (6) Chronic systolic congestive heart failure: Plan: Continue her sacubitril/Valasartan - minimze extra volume as able - Euvolemia would be goal (7) Asthma-COPD overlap syndrome: Plan: PFT in 2019 with FEV1 1.15(66%), FEV1/FVC 76%, DLCO 54% - Restarted previous home prescriptions, as patient has not been using (8) DM (diabetes mellitus): Plan: As per HPI patient has noted hypoglycemic periods at both evening and morning - May need to reduce evening dosing or increase snack - Hold evening Lantus, next dose in the morning 7 units - cover with Aspart sliding scale with CF 20 and 1:15 ratio (9) Thyroid nodule: Plan: New incidental finding on CT scan of the chest - follow up with ultrasound as inpatient or outpatient (10) Hyperlipidemia: Plan: Continue Atorvastatin 80 mg PO QHS (11) Hypothyroidism: Plan: Synthroid continue 100mcg History of Present Illness Primary Care Provider: Samuel Arbeu 75 YOF with past medical history of: Endometrioid cancer (adenocarcinoma), Thoracotomy lung resection in early right lung cancer, PE (on Eliquis), COPD/Asthma overlap syndrome, chronic upper cough syndrome, HFrEF, Pacemaker (DDDR), HTN, HLD, CAD, DM I, Hypothyroidism, Negative EBUS for pulmonary malignancy in 09/03, but following subcarinal lymphadenopathy/mass. The patient is known to have right main bronchus narrowing with collapse of the right lower lobe as well as right middle lobe and this appears to be stable. Patient comes to the emergency room today for increase in cough and increase of blood in her sputum. The patient does not feel as her cough is getting worse, but she did start noticing more pink tinged to red tinged sputum production. She is difficult to quantify the amount. However when asked if it has ever been more than a tablespoon amount at a time she said no. The patient denies any fevers or chills or other changes in her sputum. The patient is not hypoxic and does have a good expiratory cough. She last took her Eliquis on in the evening. The amount of blood in her sputum is small and it is thinly mixed with her clear thing white sputum. In the EMD the patient had a CTA of the chest completed- which revealed - Chronic consolidative opacity of the right lower lobe associated with partial calcified nodular thickening of the pleura which is unchanged since prior. Patchy hypoattenuating opacities within right lower lobe might represent pneumonia or related to aspiration; Negative for PE, and a left thyroid nodule. There was concern for postobstructive pneumonia given her WBC count of 11 she was started on Cefepime in the EMD. Patient will be admitted to the PCU, continue with IV antibiotics, will add Azithromycin for atypical coverage, will hold her Eliquis, cough suppressant, and following of her symptoms. Patient has a Dexcom for her diabetes and she has been noticing that she has been running low in the evenings and in the mornings, despite having a snack before bed. Her endorses that she doesn't have much of a snack. Will hold her evening Lantus dose and adjust while in house, will continue with her sliding scale. Patient als endorses that she does not use her inhalers or Flonase at home because she has not noticed any change in her cough or symptoms. She denied that she was using any cough suppressant therapy as well. She had a Myocardial Lexiscan stress test done in 2019 without chest pain or ECG changes. Most recent ECHO done in 09/04 with EF 35-40% with severe hypokinesis of the distal septum/distal inferior wall and apex with mild global hypokinesis and mild MR and elevated RVSP at 40-50. Allergies Allergy/AdvReac Type Severity Reaction Status Date / Time oxycodone [From Percocet] AdvReac Gastrointestinal Verified 09/25/20 10:13 Upset Home Medications Medication Instructions Recorded Confirmed Type atorvastatin 80 mg tablet 80 mg PO HS tab 09/29/18 09/25/20 History cholecalciferol (vitamin D3) 50 2,000 units PO HS cap 11/28/18 09/25/20 History mcg (2,000 unit) capsule OneTouch Ultra Blue Test Strip #300 ea NS 02/07/19 07/23/20 Rx (blood sugar diagnostic) megestrol 40 mg tablet 40 mg PO QAM tab 02/19/19 09/25/20 History lancets (OneTouch UltraSoft #50 ea 02/22/19 07/23/20 History Lancets) blood-glucose sensor (Dexcom G6 #3 ea 06/28/19 07/23/20 History Sensor) calcium 600 mg-D3 800 unit-mag11 1 tab PO DAILY 11/02/19 09/25/20 History 50 zv-aphs-srimfh-loyd-s.borat tablet (Caltrate 600-D Plus Minerals) insulin syringe-needle U-100 0.5 #10 ea 11/02/19 07/23/20 History mL 31 gauge x 5/16" (BD Insulin Syringe Ultra-Fine) pen needle, diabetic 30 gauge x #1 11/02/19 07/23/20 History 1/3" apixaban 5 mg tablet (Eliquis) 5 mg PO BID #60 tab 01/03/20 09/25/20 Rx omeprazole 40 mg capsule,delayed 40 mg PO QAM 03/05/20 09/25/20 History release ezetimibe 10 mg tablet 10 mg PO HS #90 tab 03/19/20 09/25/20 Rx Flutter Valve #1 ea 04/18/20 07/23/20 Rx fluticasone propionate 50 1 spray INTNAS QAM #15.8 ml 04/23/20 09/25/20 Rx mcg/actuation nasal spray,suspension (Allergy Relief (fluticasone)) insulin aspart U-100 100 unit/mL 1 - 30 unit SUBCUT DIRECTED ml 05/03/20 09/25/20 History (3 mL) subcutaneous pen (Novolog Flexpen U-100 Insulin aspart) levothyroxine 100 mcg capsule 100 mcg PO DAILY@0600 #30 cap 06/10/20 09/25/20 Rx Incentive Spirometer #1 ea 07/23/20 07/23/20 Rx albuterol sulfate 90 mcg/actuation 2 inh INH QID #18 g 07/23/20 09/25/20 Rx aerosol inhaler budesonide-formoterol HFA 80 2 inh INH BID PRN #10.2 g 07/23/20 09/25/20 Rx mcg-4.5 mcg/actuation aerosol inhaler (Symbicort) guaifenesin 600 mg tablet, 600 mg PO BID PRN #60 tab 07/23/20 09/25/20 Rx extended release 12 hr (Mucinex) carvedilol 25 mg tablet 25 mg PO BID #90 tab 07/26/20 09/25/20 Rx sacubitril 97 mg-valsartan 103 mg 1 tab PO BID #60 tab 09/02/20 09/25/20 Rx tablet glucagon HCl 1 mg/mL solution for 1 mg IM DIRECTED PRN 09/25/20 09/25/20 History injection insulin glargine 100 unit/mL 7 unit SQ AMPM 09/25/20 09/25/20 History subcutaneous solution (Lantus U-100 Insulin) naproxen 220 mg-diphenhydramine 25 1 tab PO HS PRN 09/25/20 09/25/20 History mg tablet (Aleve PM) Past Med/Surg History Medical History (Updated 09/25/20 @ 17:56 by Carlos Vick MD) Arthritis Chronic kidney disease, stage III (moderate) Cough REASON FOR INHALER Elevated troponin History of colon cancer History of hypertension History of rectal polyps Hx of cancer of endometrium Hyperlipidemia Hypothyroidism Lung tumor HX RT LOWER LUNG (SURGERY/CHEMO/RADIATION) Metastasis to lung Hematogenous Pacemaker [employer]. IMPLANTED 2013 FOR BIFASCICULAR BLOCK WITH TRANSIENT COMPLETE HEART BLOCK. LAST CHECKED 06/2019 [facility]. Pulmonary emboli T1DM (type 1 diabetes mellitus) DX 1954 Vitamin D deficiency Surgical History Family history of reaction to anesthesia DAUGHTER-GETS SICK H/O aortic valve replacement 2013 AT [place] History of appendectomy History of bilateral tubal ligation History of bronchoscopy 2006 History of cardiac cath History of cataract surgery RT/LEFT History of colon resection History of colonoscopy History of esophagogastroduodenoscopy (EGD) History of lung surgery RT LOWER LOBE REMOVAL History of open reduction and internal fixation (ORIF) procedure LEFT HIP History of placement of chest tube with chemical pleurodesis (non-chemotherapeutic) History of tooth extraction History of total hysterectomy S/P CABG (coronary artery bypass graft) 2013 AT [place] Family History Mother Hypertension Brother Family history of diabetes mellitus Family history of esophageal cancer Other Asthma Cancer Diabetes Social History Smoking Status: Former smoker Tobacco Type: Cigarettes Age Started Using Tobacco: 16; Age Quit Using Tobacco: 56; Second Hand Exposure: No; Do You Dip or Chew Tobacco: No; Tobacco Cessation Education Requested by Patient: No Hx Alcohol Use: No Hx Substance Use: No Preferred Language: Luxembourgish Communication Ability: Effective Account Resolution Specialist Required: No Beliefs That Will Affect Care: None marital status: Current Living Situation: Spouse Feels Safe at Home: Yes Safety Concerns: Feels Safe At This Time Assistive Devices: None Review of Systems Review of Systems: REVIEW OF SYSTEMS: Constitutional: No fever, sweats or chills Eyes: No diplopia, no worsening or blurred vision ENT: normal hearing, no trouble swallowing Respiratory: (+) cough, sputum, hemoptysis, dyspnea at exertion Cardiovascular: No chest pain, tightness or palpitations Abdomen: No pain, nausea, vomiting, diarrhea or constipation Musculoskeletal: No joint pain, calf pain, swelling Neurologic: No weakness, numbness/tingling, or balance problems Psychiatric: No anxiety or depression Skin: No rash or itch Physical Exam Physical Exam: PHYSICAL EXAM: General: awake, alert, no apparent distress Head: Normocephalic, atraumatic ENT: PERRL, EOMI, no pharyngeal exudate, mucous membranes moist Neuro: AAO x 3, speech clear and appropriate, strength intact bilaterally 5/5, sensation intact and equal all extremities and dermatomes, no pronator drift Chest: equal rise and fall of the chest, no accessory muscle use, no heaves or thrills, scattered crackles with expiratory wheeze posterior right, on room air, sputum thin pink tinged Cardiac: Regular rate and rhythm, telemetry reviewed- AV paced, skin warm dry, cap refill <3 seconds, peripheral pulses +2 no JVD, no murmur, no edema GI: NABS x 4 quadrants, soft, nontender to palpation, no rebound, guarding or tenderness : Spontaneously voiding, no pain, no CVA tenderness Extremities: Normal inspection, no peripheral edema or erythema, calfs nontender to palpation Psych: Normal mood and affect Skin: no rash or erythema Results & Data Results & Data ([facility]) Vital Signs (Past 12 Hours) Vital Signs Temp Pulse Pulse Resp BP BP Pulse Ox 09/25/20 15:37 91 H 16 119/50 L 96 09/25/20 12:54 99 09/25/20 12:53 107 H 20 106/53 L 99 09/25/20 09:09 36.3 C L 99 H 18 127/64 98 Laboratory Results Abnormal Labs 09/25/20 09/25/20 09/25/20 11:33 11:33 11:33 WBC 11.66 H RBC 3.26 L Hgb 9.1 L Hct 30.0 L MCHC 30.3 L RDW Std Deviation 71.3 H RDW Coeff of Daniel 21.1 H Neut # (Auto) 9.46 H Immature Gran # (Auto) 0.05 H PT 15.3 H INR 1.6 H APTT 43.4 H Chloride 111 H BUN 50 H Creatinine 1.49 H BUN/Creatinine Ratio 33.5 H Glucose 117 H Alkaline Phosphatase 120 H Albumin 2.3 L Globulin 5.8 H Albumin/Globulin Ratio 0.4 L Diagnostic Findings Chest X-Ray 09/25/20 09:34 XR chest 1V portable CLINICAL HISTORY: hemoptysis COMPARISON STUDY: April 26, 2020 FINDINGS: No pneumothorax. Moderate right pleural effusion is seen associated with patchy airspace opacities within the right mid to lower lung which might represent infiltrative process/pneumonia. No pleural effusion is seen on the left. Cardiomediastinal silhouette is within upper limits of normal and partially obscured on the right. Pulmonary vasculature is obscured.. Aorta is calcified. Osseous structures: Osteopenia. Degenerative changes of the spine. Deformity of bilateral shoulders are seen. Stable position of right-sided triple lead pacemaker with battery pack partially obscuring left lung parenchyma. Midline sternotomy wires are again seen. IMPRESSION: 1. Moderate right pleural effusion associated with infiltrative process within right mid to lower lung. 2. The rest of findings as above. ACT 112: Negative or not required by law. The above report was generated using voice recognition software. It may contain grammatical, syntax or spelling errors. Electronically signed by: Sola Gonsalves DO 09/25/2020 10:39 AM Chest CTA 09/25/20 10:12 CT ANGIOGRAM OF THE CHEST CLINICAL HISTORY: hemoptysis COMPARISON STUDY: April 18, 2020 TECHNIQUE: Following the IV administration of 120 mL of Optiray, CT angiogram of the thorax was performed from the thoracic inlet to the lung bases utilizing the pulmonary embolus protocol. Images are reviewed in the axial, sagittal, and coronal planes. IV contrast was administered without complication. MIP imaging was performed. A dose lowering technique was utilized adhering to the principles of ALARA. CT DOSE: 392.93 mGy.cm FINDINGS: There is adequate opacification within main pulmonary artery. No definite pulmonary embolus is seen. Significantly decreased opacification of the pulmonary artery branches within collapsed portion of the right lower lobe likely due to flow artifact. Pulmonary artery is normal in caliber. No evidence of right heart strain. Minimal four-chamber cardiomegaly. No significant pericardial effusion. Severe calcifications of the [place] coronary arteries. Status post CABG No pathologically enlarged axillary mediastinal or hilar lymph nodes were visualized. Thoracic aorta is normal in caliber with scattered calcifications of its wall. Possible postoperative changes within aortic valve. Visualized portion of thyroid gland shows slightly enlarged left thyroid lobe and hypoattenuating heterogeneous nodule measuring 1.8 cm in size. Mild hiatal hernia is seen. Trachea and left bronchial tree is patent. Complete occlusion of the bronchus intermedius is seen as well as heterogeneous consolidation within the right lower lobe. Nodular enhancement with calcifications are seen within posterior inferior hemithorax, could be due to pleural thickening or enhancing lesion within collapsed right lower lobe. Findings are stable since prior. Limited evaluation of upper abdominal viscera shows no evidence of acute abnormalities and multiple calcifications within splenic parenchyma which could be due to remote granulomatous process. Osseous structures: Multilevel degenerative changes of the spine. Healed sternotomy defect. IMPRESSION: 1. No definite pulmonary embolus is seen. Diminished flow within right lower lobe pulmonary artery branch supplying area of chronic consolidation is likely due to flow artifact. 2. Chronic consolidative opacity of the right lower lobe associated with partial calcified nodular thickening of the pleura which is unchanged since prior. Patchy hypoattenuating opacities within right lower lobe might represent pneumonia or related to aspiration. 3. Status post cardiac surgery. 4. Heterogeneous hypoattenuating nodule within left thyroid lobe. 5. Mild hiatal hernia. 6. The rest of findings as above. ACT 112: Negative or not required by law. The above report was generated using voice recognition software. It may contain grammatical, syntax or spelling errors. Electronically signed by: Sola Gonsalevs DO 09/25/2020 1:41 PM Medications Administered Home Medications atorvastatin 80 mg tablet 80 mg PO HS tab 09/29/18 [History Confirmed 09/25/20] cholecalciferol (vitamin D3) 50 mcg (2,000 unit) capsule 2,000 units PO HS cap 11/28/18 [History Confirmed 09/25/20] OneTouch Ultra Blue Test Strip (blood sugar diagnostic) #300 ea NS 02/07/19 [Rx Confirmed 07/23/20] megestrol 40 mg tablet 40 mg PO QAM tab 02/19/19 [History Confirmed 09/25/20] lancets (OneTouch UltraSoft Lancets) #50 ea 02/22/19 [History Confirmed 07/23/20] blood-glucose sensor (Dexcom G6 Sensor) #3 ea 06/28/19 [History Confirmed 07/23/20] calcium 600 mg-D3 800 unit-mag11 50 yl-xxqa-yqeyfy-loyd-s.borat tablet (Caltrate 600-D Plus Minerals) 1 tab PO DAILY 11/02/19 [History Confirmed 09/25/20] insulin syringe-needle U-100 0.5 mL 31 gauge x 5/16" (BD Insulin Syringe Ultra- Fine) #10 ea 11/02/19 [History Confirmed 07/23/20] pen needle, diabetic 30 gauge x 1/3" #1 11/02/19 [History Confirmed 07/23/20] apixaban 5 mg tablet (Eliquis) 5 mg PO BID #60 tab 01/03/20 [Rx Confirmed 09/25/20] omeprazole 40 mg capsule,delayed release 40 mg PO QAM 03/05/20 [History Confirmed 09/25/20] ezetimibe 10 mg tablet 10 mg PO HS #90 tab 03/19/20 [Rx Confirmed 09/25/20] Flutter Valve #1 ea 04/18/20 [Rx Confirmed 07/23/20] fluticasone propionate 50 mcg/actuation nasal spray,suspension (Allergy Relief (fluticasone)) 1 spray INTNAS QAM #15.8 ml 04/23/20 [Rx Confirmed 09/25/20] insulin aspart U-100 100 unit/mL (3 mL) subcutaneous pen (Novolog Flexpen U-100 Insulin aspart) 1 - 30 unit SUBCUT DIRECTED ml 05/03/20 [History Confirmed 09/25/20] levothyroxine 100 mcg capsule 100 mcg PO DAILY@0600 #30 cap 06/10/20 [Rx Confirmed 09/25/20] Incentive Spirometer #1 ea 07/23/20 [Rx Confirmed 07/23/20] albuterol sulfate 90 mcg/actuation aerosol inhaler 2 inh INH QID #18 g 07/23/20 [Rx Confirmed 09/25/20] budesonide-formoterol HFA 80 mcg-4.5 mcg/actuation aerosol inhaler (Symbicort) 2 inh INH BID PRN #10.2 g 07/23/20 [Rx Confirmed 09/25/20] guaifenesin 600 mg tablet, extended release 12 hr (Mucinex) 600 mg PO BID PRN #60 tab 07/23/20 [Rx Confirmed 09/25/20] carvedilol 25 mg tablet 25 mg PO BID #90 tab 07/26/20 [Rx Confirmed 09/25/20] sacubitril 97 mg-valsartan 103 mg tablet 1 tab PO BID #60 tab 09/02/20 [Rx Confirmed 09/25/20] glucagon HCl 1 mg/mL solution for injection 1 mg IM DIRECTED PRN 09/25/20 [History Confirmed 09/25/20] insulin glargine 100 unit/mL subcutaneous solution (Lantus U-100 Insulin) 7 unit SQ AMPM 09/25/20 [History Confirmed 09/25/20] naproxen 220 mg-diphenhydramine 25 mg tablet (Aleve PM) 1 tab PO HS PRN 09/25/20 [History Confirmed 09/25/20] Active Medications Sodium Chloride (Nss 1000ml) 1,000 mls @ 125 mls/hr IV .Q8H STA Stop: 09/25/20 17:33 Last Admin: 09/25/20 15:38 Dose: 125 mls/hr Documented by: Code Status & VTE Plan Code Status CODE: DNR/DNI VTE: SCDs, ambulation, Supervising Physician Co-Signing Physician Notes Attending addendum: I have physically seen this patient, have supervised the medical residents activities, and agree with the H&P unless as otherwise noted. Assessment and Plan: Hemoptysis/postobstructive pneumonia/upper airway cough syndrome- Hold Eliquis this evening Robitussin-DM, 5 mils every 6 hours as needed Continue usual inhalers: Albuterol sulfate, budesonide formoterol DuoNebs every 2 hours as needed Cefepime IV per pharmacokinetic monitoring Azithromycin 500 mg IV daily Flutter valve Discussion regarding complete occlusion of bronchus intermedius within the right lower lobe noted Remaining orders and notations as noted PG Care Time/CCT Total # of Minutes Spent Total Time Spent with Patient: Total time spent is greater than 50% in coordination of care (as documented) at patient's floor/unit and/or counseling patient: Coding Level of Care Code 37413 Initial Inpt Care Lvl 3 Diagnoses Hemoptysis R04.2 Pneumonia J18.9 Upper airway cough syndrome R[address] R93.89 Chronic systolic congestive heart failure I50.22 Asthma-COPD overlap syndrome J44.9 DM (diabetes mellitus) E11.9 Thyroid nodule E04.1 Hyperlipidemia E78.5 Hypothyroidism E03.9 Pulmonary emboli I26.99 Acute cor pulmonale presence: without acute cor pulmonale Chronicity: acute Pulmonary embolism type: unspecified (1) Pulmonary emboli Acute cor pulmonale presence: without acute cor pulmonale Chronicity: acute Pulmonary embolism type: unspecified Qualified Code(s): I26.99 - Other pulmonary embolism without acute cor pulmonale
[2020-09-25] MEDS ORDERED: GLUCAGON FOR INJ 1 MG VIAL SQ PRN (18:07)
[2020-09-25] MEDS ORDERED: ONDANSETRON INJ 2 MG/ML 2 ML VIAL IV PRN (18:07)
[2020-09-25] MEDS ORDERED: GLUCOSE 10 TABS/TUBE PO PRN (18:07)
[2020-09-25] MEDS ORDERED: GLUCOSE 40% GEL 15 GM TUBE PO PRN (18:07)
[2020-09-25] MEDS ORDERED: CARBOHYDRATES FOR HYPOGLYCEMIA PO PRN (18:07)
[2020-09-25] MEDS ORDERED: DEXTROSE 50% 50 ML SYRINGE IV PRN (18:07)
[2020-09-25] MEDS ORDERED: AZITHROMYCIN 250 MG TAB PO ONE (18:30)
[2020-09-25] MEDS: ALBUTEROL HFA 8 GM INHALER INH SCH (19:54)
[2020-09-25] MEDS: PANTOprazole 40 MG TAB PO SCH (20:13)
[2020-09-25] MEDS: CHOLECALCIFEROL 1,000 UNITS 25 MCG TAB PO SCH (20:13)
[2020-09-25] MEDS: carvediloL 25 MG TAB PO SCH (20:14)
[2020-09-25] MEDS: EZETIMIBE 10 MG TABLET PO SCH (20:14)
[2020-09-25] MEDS: ATORVASTATIN 40 MG TAB PO SCH (20:14)
[2020-09-25] MEDS: SACUBITRIL-VALSARTAN 97-103 MG TAB PO SCH (20:15)
[2020-09-25] MEDS: INSULIN ASPART 100 UNITS/ML 3 ML PEN SC SCH (20:15)
[2020-09-25] MEDS: guaiFENesin/DEXTROM SYRUP 100MG/10MG 5ML UDC PO PRN (21:59)
[2020-09-26] MEDS: guaiFENesin/DEXTROM SYRUP 100MG/10MG 5ML UDC PO PRN (04:14)
[2020-09-26 05:35] LABS: Basophils # (auto) 0.04 K/uL (0-0.2); Basophils % (auto) 0.6 %; Eosinophils # (auto) 0.08 K/uL (0-0.5); Eosinophils % (auto) 1.3 %; Hematocrit (blood only) 27.9 % (37-47); Hemoglobin 8.1 g/dL (12.0-16.0); Immature Granulocytes # (auto) 0.05 K/uL (0.00-0.02); Immature Granulocytes % (auto) 0.8 %; Lymphocytes % (auto) 24.3 %; Mean Platelet Volume 8.6 fL (7.4-10.4); Monocytes # (auto) 0.52 K/uL (0.11-0.59); Monocytes % (auto) 8.4 %; Neutrophils # (auto) 3.98 K/uL (1.4-6.5); Neutrophils % (auto) 64.6 %; Platelet Count 362 K/uL (130-400); RDW Standard Deviation 71.5 fL (36.4-46.3); White Blood Count 6.17 K/uL (4.8-10.8)
[2020-09-26 05:53] LABS: INR 1.6 (0.9-1.1); Prothrombin Time 15.7 Seconds (9.0-12.0)
[2020-09-26 06:03] LABS: BUN Creatinine Ratio 32.2 (10-20); Calcium 8.2 mg/dl (8.5-10.1); Creatinine Clr Calc Pharmacy 29.6 ml/min; Magnesium 2.1 mg/dl (1.8-2.4)
[2020-09-26 06:06] LABS: Anisocytosis Present; Echinocytes 1+; Rouleaux 1+
[2020-09-26 06:29] LABS: Potassium 5.2 mmol/L (3.5-5.1)
[2020-09-26] MEDS: LEVOTHYROXINE SODIUM 100 MCG TABLET PO SCH (06:29)
--- NOTE | 2020-09-26 08:48 | Hospitalist Progress Note ---
Date of Service September 26, 2020 Assessment & Plan (1) Hemoptysis: Plan: she did note increase in amount and frequency - CTA of the chest IMPRESSION: 1. No definite pulmonary embolus is seen. Diminished flow within right lower lobe pulmonary artery branch supplying area of chronic consolidation is likely due to flow artifact. 2. Chronic consolidative opacity of the right lower lobe associated with partial calcified nodular thickening of the pleura which is unchanged since prior. Patchy hypoattenuating opacities within right lower lobe might represent pneumonia or related to aspiration. 3. Status post cardiac surgery. 4. Heterogeneous hypoattenuating nodule within left thyroid lobe. 5. Mild hiatal hernia. - hold her Eliquis - INR 1.6- no need to acutely reverse - restart home inhalers for her dyspnea Chest physiotherapy with flutter valve changing mucolytic agents to 1200 twice daily guaifenesin having cough suppressant with Phenergan for extreme cough (2) Pneumonia: Plan: Post obstructive pneumonia likely - WBC elevated, no fever, increase cough - Continue Cefepime - Add Azithro for atypical - blood cultures pending - not septic- - De-escalate antibiotics as clinically able - May have role for bronchoscopy evaluation given history (3) Pulmonary emboli: Plan: History of RLL PE on CTA of 12/29- transitioned to Eliqius at that time. - INR 1.6 last dose of ELiquis [id number] - Hold Eliquis at this time - Therapy discussion on the current state of her malignancy to continue or not continue with anticoagulation therapy (4) Upper airway cough syndrome: Plan: As above, continue with Flutter valve, Robitussin, home inhaler therapy (5) Abnormal chest CT: Plan: Complete occlusion of the bronchus intermedius is seen as well as heterogeneous consolidation within the right lower lobe. Nodular enhancement with calcifications are seen within posterior inferior hemithorax, could be due to pleural thickening or enhancing lesion within collapsed right lower lobe. Findings are stable since prior. Chronic consolidative opacity of the right lower lobe associated with partial calcified nodular thickening of the pleura which is unchanged since prior. Patchy hypoattenuating opacities within right lower lobe might represent pneumonia or related to aspiration. Patient was discussed with these findings in the past with pulmonary and tumor board- history of endometrial adenocarcinoma and also lung resection on right ( not clear if primary or metastatic) was following with EBUS screening - Her RBI narrowing is throught o be related to her radiation therapy that she received for her cancer - EBUS with TBNA performed in 2019- negative for malgnancy but with chronic inflammation and reactive epithelial changes - Conservative management in regards to her RBI was discussed. (6) Chronic systolic congestive heart failure: Plan: Continue her sacubitril/Valasartan - minimze extra volume as able - Euvolemia would be goal (7) Asthma-COPD overlap syndrome: Plan: PFT in 2019 with FEV1 1.15(66%), FEV1/FVC 76%, DLCO 54% - Restarted previous home prescriptions, as patient has not been using (8) DM (diabetes mellitus): Plan: As per HPI patient has noted hypoglycemic periods at both evening and morning - May need to reduce evening dosing or increase snack - Hold evening Lantus, next dose in the morning 7 units - cover with Aspart sliding scale with CF 20 and 1:15 ratio (9) Thyroid nodule: Plan: New incidental finding on CT scan of the chest - follow up with ultrasound as inpatient or outpatient (10) Hyperlipidemia: Plan: Continue Atorvastatin 80 mg PO QHS (11) Hypothyroidism: Plan: Synthroid continue 100mcg Admission and Anticipated Discharge Date Admission Date: September 25, 2020 Subjective Patient is a very pleasant understanding of her bronchial narrowing. She is surprised she has pneumonia this is likely postobstructive. She is on room air. Her hemoptysis which is likely encouraged by her Eliquis use has reduced quite substantially Review of Systems Review of Systems: Mild distress and fatigue no headache, no visual changes no speech or swallowing issues no chest pain, pressure or palpitations Reduced breath coughing productive sputum no abdominal pain, nausea or vomiting, diarrhea or constipation no dysuria, hematuria or frequency no focal joint pain or swelling no back pain, CVA tenderness or radicular pain no bruising, bleeding or rashes no focal signs of weakness or numbness or altered sensation no complaints of anxiety or depression.. Physical Exam Physical Exam: The patient appeared well nourished and normally developed. Vital signs as documented. Head exam is normocephalic atraumatic Neck is without JVD, thyromegaly, or carotid bruits. Lungs are diminished at the left base Cardiac exam, Rhythm is regular.. No murmurs, rubs or gallops. Abdominal exam reveals normal bowel sounds, soft non tender, no masses Extremities are nonedematous and both pedal pulses are present Neurologic exam is alert and oriented, no focal loss of strength or sensation Skin is without bruises or rashes Psychologically is without concerns for anxiety or depression Results & Data Results & Data ([facility]) Vital Signs (Past 12 Hours) Vital Signs Temp Pulse Pulse Resp BP BP Pulse Ox 09/26/20 07:59 66 20 99 09/26/20 04:17 98.1 F 81 14 92/54 L 98 09/26/20 00:03 98.2 F 78 16 93/45 L 99 09/26/20 00:00 95 H 09/25/20 23:04 98.2 F 87 19 82/40 L 98 09/25/20 22:03 86 39 H 97/54 L 99 09/25/20 21:04 90 30 H 111/56 L 100 PG Care Time/CCT Total # of Minutes Spent Total Time Spent with Patient: Total time spent is greater than 50% in coordination of care (as documented) at patient's floor/unit and/or counseling patient: Coding Level of Care Code 48661 Subseq Hosp Care Lvl 3 Diagnoses Hemoptysis R04.2 Pneumonia J18.9 Pulmonary emboli I26.99 Acute cor pulmonale presence: without acute cor pulmonale Chronicity: acute Pulmonary embolism type: unspecified Upper airway cough syndrome R[address] R93.89 Chronic systolic congestive heart failure I50.22 Asthma-COPD overlap syndrome J44.9 DM (diabetes mellitus) E11.9 Thyroid nodule E04.1 Hyperlipidemia E78.5 Hypothyroidism E03.9 (1) Pulmonary emboli Acute cor pulmonale presence: without acute cor pulmonale Chronicity: acute Pulmonary embolism type: unspecified Qualified Code(s): I26.99 - Other pulmonary embolism without acute cor pulmonale
[2020-09-26] MEDS ORDERED: INSULIN GLARGINE SOLOSTAR 100 UNITS/ML 3 ML PEN SQ SCH (09:00)
[2020-09-26] MEDS: INSULIN ASPART 100 UNITS/ML 3 ML PEN SC SCH ×4 (09:18→21:00)
[2020-09-26] MEDS: FLUTICASONE PROPIONATE NA SPR 16 GM BTL NAE SCH (09:19)
[2020-09-26] MEDS: carvediloL 25 MG TAB PO SCH ×2 (09:19→20:58)
[2020-09-26] MEDS: FLUTICASONE/VILANTEROL 100/25MCG 14 PUFFS/INHALER INH SCH (09:19)
[2020-09-26] MEDS: PANTOprazole 40 MG TAB PO SCH (09:20)
[2020-09-26] MEDS: SACUBITRIL-VALSARTAN 97-103 MG TAB PO SCH ×2 (09:21→21:00)
[2020-09-26] MEDS: ALBUTEROL HFA 8 GM INHALER INH SCH ×4 (11:09→19:27)
[2020-09-26] MEDS ORDERED: PROMETHAZINE HCL 12.5 MG/10 ML UDP PO PRN (16:10)
[2020-09-26] MEDS ORDERED: BENZONATATE 100 MG CAPSULE PO PRN (16:10)
[2020-09-26] MEDS ORDERED: AZITHROMYCIN 250 MG TAB PO SCH (18:00)
--- NOTE | 2020-09-26 20:26 | Billing Data ---
Date of Service September 26, 2020 Coding Level of Care Code 85243 Initial Inpt Care Lvl 3
[2020-09-26] MEDS: EZETIMIBE 10 MG TABLET PO SCH (20:58)
[2020-09-26] MEDS: CHOLECALCIFEROL 1,000 UNITS 25 MCG TAB PO SCH (20:58)
[2020-09-26] MEDS: ATORVASTATIN 40 MG TAB PO SCH (20:58)
[2020-09-26] MEDS: guaiFENesin 600 MG TABCR PO SCH (20:59)
[2020-09-26] MEDS: INSULIN GLARGINE SOLOSTAR 100 UNITS/ML 3 ML PEN SQ SCH (21:55)
[2020-09-26 23:20] VITALS: TEMP 98.4
[2020-09-27] MEDS: LEVOTHYROXINE SODIUM 100 MCG TABLET PO SCH (05:26)
[2020-09-27 07:44] LABS: Basophils # (auto) 0.04 K/uL (0-0.2); Basophils % (auto) 0.6 %; Eosinophils # (auto) 0.09 K/uL (0-0.5); Eosinophils % (auto) 1.3 %; Hematocrit (blood only) 27.9 % (37-47); Hemoglobin 8.6 g/dL (12.0-16.0); Immature Granulocytes # (auto) 0.07 K/uL (0.00-0.02); Lymphocytes # (auto) 1.64 K/uL (1.2-3.4); Lymphocytes % (auto) 24.5 %; Mean Corpuscular Hemoglobin 28.7 pg (25-34); Mean Corpuscular Hgb Conc 30.8 g/dL (32-36); Mean Platelet Volume 8.6 fL (7.4-10.4); Monocytes # (auto) 0.58 K/uL (0.11-0.59); Monocytes % (auto) 8.7 %; Neutrophils # (auto) 4.27 K/uL (1.4-6.5); Neutrophils % (auto) 63.9 %; Platelet Count 396 K/uL (130-400); RDW Coefficient of Variation 20.6 % (11.5-14.5); White Blood Count 6.69 K/uL (4.8-10.8)
[2020-09-27] MEDS: ALBUTEROL HFA 8 GM INHALER INH SCH ×2 (07:45→11:46)
[2020-09-27 07:57] LABS: INR 1.5 (0.9-1.1); Prothrombin Time 14.3 Seconds (9.0-12.0)
[2020-09-27 08:19] LABS: Anisocytosis Present; Echinocytes 2+; Hypochromasia Present; Polychromasia 1+; Schistocytes 1+
[2020-09-27 08:23] LABS: BUN Creatinine Ratio 29.7 (10-20); Calcium 8.6 mg/dl (8.5-10.1); Creatinine Clr Calc Pharmacy 31.4 ml/min; Est GFR (African American) 47.4 ml/min; Est GFR (Non-African American) 40.9 ml/min; Magnesium 1.6 mg/dl (1.8-2.4)
[2020-09-27] MEDS: carvediloL 25 MG TAB PO SCH (09:27)
[2020-09-27] MEDS: guaiFENesin 600 MG TABCR PO SCH (09:27)
[2020-09-27] MEDS: PANTOprazole 40 MG TAB PO SCH (09:27)
[2020-09-27] MEDS: INSULIN GLARGINE SOLOSTAR 100 UNITS/ML 3 ML PEN SQ SCH (09:27)
[2020-09-27] MEDS: FLUTICASONE/VILANTEROL 100/25MCG 14 PUFFS/INHALER INH SCH (09:28)
[2020-09-27] MEDS: INSULIN ASPART 100 UNITS/ML 3 ML PEN SC SCH ×2 (09:29→13:20)
[2020-09-27] MEDS: FLUTICASONE PROPIONATE NA SPR 16 GM BTL NAE SCH (09:29)
[2020-09-27] MEDS: MAGNESIUM SULFATE / D5W 1 GM/100 ML BAG IV SCH ×2 (10:27→13:17)
[2020-09-27] MEDS: SACUBITRIL-VALSARTAN 97-103 MG TAB PO SCH (10:27)
[2020-09-27] MEDS ORDERED: IRON SUCROSE 200 MG in 0.9 % SODIUM CHLORIDE 100 ML IV ONE (13:00)
[2020-09-27 15:23] VITALS: BP 105/68; PULSE 78; O2SAT 98
--- NOTE | 2020-09-27 17:51 | Discharge Summary ---
Date of Service September 27, 2020 Admission HPI Per Admitting Provider 75 YOF with past medical history of: Endometrioid cancer (adenocarcinoma), Thoracotomy lung resection in early right lung cancer, PE (on Eliquis), COPD/Asthma overlap syndrome, chronic upper cough syndrome, HFrEF, Pacemaker (DDDR), HTN, HLD, CAD, DM I, Hypothyroidism, Negative EBUS for pulmonary malignancy in 09/03, but following subcarinal lymphadenopathy/mass. The patient is known to have right main bronchus narrowing with collapse of the right lower lobe as well as right middle lobe and this appears to be stable. Patient comes to the emergency room today for increase in cough and increase of blood in her sputum. The patient does not feel as her cough is getting worse, but she did start noticing more pink tinged to red tinged sputum production. She is difficult to quantify the amount. However when asked if it has ever been more than a tablespoon amount at a time she said no. The patient denies any fevers or chills or other changes in her sputum. The patient is not hypoxic and does have a good expiratory cough. She last took her Eliquis on in the evening. The amount of blood in her sputum is small and it is thinly mixed with her clear thing white sputum. In the EMD the patient had a CTA of the chest completed- which revealed - Chronic consolidative opacity of the right lower lobe associated with partial calcified nodular thickening of the pleura which is unchanged since prior. Patchy hypoattenuating opacities within right lower lobe might represent pneumonia or related to aspiration; Negative for PE, and a left thyroid nodule. There was concern for postobstructive pneumonia given her WBC count of 11 she was started on Cefepime in the EMD. Patient will be admitted to the PCU, continue with IV antibiotics, will add Azithromycin for atypical coverage, will hold her Eliquis, cough suppressant, and following of her symptoms. Patient has a Dexcom for her diabetes and she has been noticing that she has been running low in the evenings and in the mornings, despite having a snack before bed. Her endorses that she doesn't have much of a snack. Will hold her evening Lantus dose and adjust while in house, will continue with her sliding scale. Patient als endorses that she does not use her inhalers or Flonase at home because she has not noticed any change in her cough or symptoms. She denied that she was using any cough suppressant therapy as well. She had a Myocardial Lexiscan stress test done in 2019 without chest pain or ECG changes. Most recent ECHO done in 09/04 with EF 35-40% with severe hypokinesis of the distal septum/distal inferior wall and apex with mild global hypokinesis and mild MR and elevated RVSP at 40-50. Principal Diagnosis Hemoptysis while on oral anticoagulant Right basilar pneumonia improved with azithromycin Thyroid nodule found recommend PCP follow-up Discharge Exam The patient appeared well Vital signs as documented. Could not palpate a thyroid nodule Lungs are diminished with some rhonchi at the right base otherwise clear Cardiac exam, Rhythm is regular.. No murmurs, rubs or gallops. Abdominal exam reveals normal bowel sounds, soft non tender, no masses Extremities are nonedematous and both pedal pulses are normal. Neurologic exam is alert and oriented, no focal loss of strength or sensation Skin is without bruises or rashes Psychologically is without concerns for anxiety or depression. Discharge Data Allergies Allergy/AdvReac Type Severity Reaction Status Date / Time oxycodone [From Percocet] AdvReac Gastrointestinal Verified 09/25/20 10:13 Upset Ordered Studies 09/25/20 10:12 CT angio chest PE protocol Stat Hospital Course (1) Hemoptysis: Not severe hemoptysis, she did note increase in amount and frequency - CTA of the chest with occlusion of the bronchus intermedius with heterogeneous consolidation of the right lower lobe however it is noted on the radiologist dictation that these findings are stable since prior CT scan scan showed his presentation was April 2020. The patient is following with oncology -Would not restart Eliquis at discharge. Did discuss starting ox apparent therapy but the patient declined and I wanted it to do an additional injection. Patient is agreeable to an appointment with anticoagulation clinic Dr. Ledesma. I processed sternally spoke to Dr. Ledesma who and also the pharmacist there relaying the needs that the patient needs further education and restratification as she is high risk for recurrent VTE. I did communicate these risks to the patient prior to discharge - - Cough suppressant prescribed for home- Robitussin DM 5ml prn q6 hours can increase if needed -Continue inhaled medication Complete course of outpatient azithromycin with close outpatient follow-up (2) Pneumonia: Post obstructive pneumonia likely - WBC elevated, no fever, increase cough -Patient is improved dramatically will go home on azithromycin initial white blood count was only 11,000 (3) Pulmonary emboli: History of RLL PE on CTA of 12/29- transitioned to Eliqius at that time. - INR 1.6 last dose of ELiquis [id number] -Stop Eliquis at discharge - Therapy discussion on the current state of her malignancy to continue or no t continue with anticoagulation therapy patient is reluctant to use Lovenox therapy I explained to her that this would be the quickest way to reverse anticoagulation if she were to have hemoptysis again. The patient however is not interested initiating additional injections. She is agreeable to speak to coagulation clinic. Arrange to have an outpatient appointment on the I believe of September (4) Upper airway cough syndrome: As above, continue with Flutter valve, Robitussin, home inhaler therapy (5) Abnormal chest CT: Complete occlusion of the bronchus intermedius is seen as well as heterogeneous consolidation within the right lower lobe. Nodular enhancement with calcifications are seen within posterior inferior hemithorax, could be due to pleural thickening or enhancing lesion within collapsed right lower lobe. Findings are stable since prior. Chronic consolidative opacity of the right lower lobe associated with partial calcified nodular thickening of the pleura which is unchanged since prior. Patchy hypoattenuating opacities within right lower lobe might represent pneumonia or related to aspiration. Patient was discussed with these findings in the past with pulmonary and tumor board- was following with EBUS screening - Her RBI narrowing is throught o be related to her radiation therapy that she received for her cancer - EBUS with TBNA performed in 2019- negative for malgnancy but with chronic inflammation and reactive epithelial changes - Conservative managment in regards to her RBI was discussed. (6) Chronic systolic congestive heart failure: Continue her sacubitril/Valasartan (7) Asthma-COPD overlap syndrome: PFT in 2019 with FEV1 1.15(66%), FEV1/FVC 76%, DLCO 54% - Restarted previous home prescriptions, as patient has not been using (8) DM (diabetes mellitus): As per HPI patient has noted hypoglycemic periods at both evening and morning a1c 09/04 was 5.4 - (9) Thyroid nodule: New incidental finding on CT scan of the chest - follow up with ultrasound as inpatient or outpatient (10) Hyperlipidemia: Continue Atorvastatin 80 mg PO QHS (11) Hypothyroidism: Synthroid continue 100mcg Total Time Total Time Spent Total Time Spent (In Minutes): It required greater than 30 minutes to prepare this patient for discharge Discharge Plan Discharge Items Patient Disposition: Home - Self-Care Reason For Visit: HEMOPTYSIS, COUGH Discharge Diagnosis: coughing up blood pneumonia Activity: Resume your previous activity Non-emergency contact: Primary Care Provider and Specialist Call non-emergency contact if: you have any medication questions, your symptoms worsen and you have a fever Follow-up/Referrals: Samuel Abreu [Primary Care Provider] - 10/02/20 2:10 pm (Dr. Tatum will be seeing you.) Diet: Carb Consistent or DM2 Addtl Attending Provider Instructions: we going to set up an appointment in coagulation clinic to discuss your risk of recurrent blood clots and your recent bleeding from you lungs. As we discussed at the bedside one option is to have you be on injectable heparin unit that appointment, however you had not wanted to start an injectable medicine. Your do have some risk of recurrent blood clots which could be dangerous or even fatal if severe, in this gap, but I understand you wish to not pursue injectable medicines and restarting your oral anticoagulatin at this time may lead to you coughing up bood again. Please see you family doctor, call him next week for appointment, and have your blood count and iron levels followed finish all of your antibiotics there was a small nodule seen in your thyroid, please discuss follow up with Dr Abreu Pending Studies at Discharge: No Stand-Alone Forms: My [facility] [employer], Smoking Cessation Medications and DC Order Prescriptions: New azithromycin 250 mg Tablet 250 mg PO Q24H Qty: 4 RF: 0 Continued (DME) OneTouch Ultra Blue Test Strip strip See Dose Instructions .ROUTE .MEDSUPPLY Qty: 300 RF: 3 ezetimibe 10 mg tablet 10 mg PO HS Qty: 90 RF: 3 (DME) Flutter Valve Device See Rx Instructions .ROUTE .MEDSUPPLY Qty: 1 RF: 0 levothyroxine 100 mcg capsule 100 mcg PO DAILY@0600 Qty: 30 RF: 5 carvedilol 25 mg tablet 25 mg PO BID Qty: 90 RF: 3 Caltrate 600-D Plus Minerals 600 mg calcium- 800 unit-50 mg tablet 1 tab PO DAILY RF: 0 (DME) Dexcom G6 Sensor Device See Rx Instructions .ROUTE .MEDSUPPLY Qty: 3 RF: 0 fluticasone propionate [Allergy Relief (fluticasone)] 50 mcg/actuation spray,suspension 1 spray INTNAS QAM Qty: 15.8 RF: 2 insulin aspart U-100 [Novolog Flexpen U-100 Insulin] 100 unit/mL (3 mL) insulin pen 1 - 30 unit subcut DIRECTED RF: 0 cholecalciferol (vitamin D3) 2,000 unit capsule 2,000 units PO HS RF: 0 atorvastatin 80 mg tablet 80 mg PO HS RF: 0 megestrol 40 mg tablet 40 mg PO QAM RF: 0 (DME) lancets [OneTouch UltraSoft Lancets] Misc See Dose Instructions .ROUTE .MEDSUPPLY Qty: 50 RF: 0 (DME) insulin syringe-needle U-100 [BD Insulin Syringe Ultra-Fine] 0.5 mL 31 gauge x 5/16" syringe See Rx Instructions .ROUTE .MEDSUPPLY Qty: 10 RF: 0 (DME) pen needle, diabetic 30 gauge x 1/3" needle See Rx Instructions .ROUTE .MEDSUPPLY Qty: 1 RF: 0 albuterol sulfate 90 mcg/actuation HFA aerosol inhaler 2 inh INH QID Qty: 18 RF: 3 budesonide-formoterol [Symbicort] 80-4.5 mcg/actuation HFA aerosol inhaler 2 inh INH BID PRN (Reason: Shortness Of Breath Or Wheezing) Qty: 10.2 RF: 7 guaifenesin [Mucinex] 600 mg tablet extended release 12hr 600 mg PO BID PRN (Reason: congestion) Qty: 60 RF: 1 (DME) Incentive Spirometer Misc See Rx Instructions .MEDSUPPLY Qty: 1 RF: 0 sacubitril-valsartan 97-103 mg tablet 1 tab PO BID Qty: 60 RF: 11 omeprazole 40 mg capsule,delayed release(DR/EC) 40 mg PO QAM RF: 0 glucagon HCl 1 mg recon soln 1 mg IM DIRECTED PRN (Reason: diabetic emergency) RF: 0 Aleve PM 220-25 mg Tablet 1 tab PO HS PRN (Reason: Sleep) RF: 0 Changed Lantus U-100 Insulin 100 unit/mL solution 7 unit SQ DAILY Qty: 0 RF: 0 Discontinued Eliquis 5 mg tablet 5 mg PO BID Qty: 60 RF: 0 Discharge Orders: Discharge Order (Routine); Ordered 09/27/20 Ordered By: Hussein Ann Admission Data Admit Date/Time: 09/25/20 17:10 Attending Provider: Hussein Ann Admit Provider: Vinayak Harrison Primary Care Provider: Samuel Abreu Other Interventions: Discharge Summary Assessment (RN) Last Done: 09/27/20 15:21 Coding Level of Care Code D/C DAY MANAGEMENT >30 MINS Diagnoses Hemoptysis R04.2 Pneumonia J18.9 Pulmonary emboli I26.99 Acute cor pulmonale presence: without acute cor pulmonale Chronicity: acute Pulmonary embolism type: unspecified Upper airway cough syndrome R[address] R93.89 Chronic systolic congestive heart failure I50.22 Asthma-COPD overlap syndrome J44.9 DM (diabetes mellitus) E11.9 Thyroid nodule E04.1 Hyperlipidemia E78.5 Hypothyroidism E03.9
== END 2020-09-27 15:55 | disposition home or self-care (01) | DRG 190 ==
LOC: ED 09:06 → SUATTDRO 17:10 → 1E 17:10 → 3N 09-26 14:05